=== PATIENT | female | born 1960 | race Caucasian/White ===

== ENCOUNTER → 2017-03-19 | Outpatient (CLI) | payer OTHER ==
[~2017-03-19] MED LIST: AMT/8 PO; FRCT/ PO; GABA-113 PO; GLC/500 PO; HYDR-5688 PO; LISI10TA PO; LORA-741 PO; PROTONIX PO; SIMV20TA2 PO; TRAMADOL PO; VANQUISH PO; VRP40 PO
--- NOTE | 2017-03-20 12:10 | MAMMOGRAPHY REPORT ---
BILATERAL DIGITAL SCREENING MAMMOGRAM TOMOSYNTHESIS WITH CAD: 03/19/2017 CLINICAL HISTORY: Routine screening. Patient has no complaints. TECHNIQUE: Breast tomosynthesis in addition to standard 2D mammography was performed. Current study was also evaluated with a Computer Aided Detection (CAD) system. COMPARISON: Comparison is made to exams dated: 07/20/2014 mammogram, 07/08/2013 mammogram, 12/29/2011 mammogram, 12/11/2010 mammogram - [facility], 12/01/2006, and 07/11/2004 mammogram - [facility]. BREAST COMPOSITION: The tissue of both breasts is almost entirely fatty. FINDINGS: No suspicious masses, calcifications, or areas of architectural distortion are noted in ei ther breast. There has been no significant interval change compared to prior exams. IMPRESSION: ACR BI-RADS CATEGORY 1: NEGATIVE There is no mammographic evidence of malignancy. A 1 year screening mammogram is recommended. The pa tient will receive written notification of the results. Approximately 10% of breast cancers are not detected with mammography. A negative mammographic report should not delay biopsy if a clinically suggestive mass is present. Ashley Brown M.D. /:03/19/2017 15:48:29 [employer] Supervisor: Coral ANDERSON(Kiera)([employer])(BD), [facility] letter sent: Normal 1/2 BI-RADS Code: ACR BI-RADS Category 1: Negative
== END | disposition home or self-care (01) ==
LOC: C.MAMM 12:27
PROVIDERS: ATTEND Obstetrics & Gynecology
DX: Z12.31 Encounter for screening mammogram for malignant neoplasm of breast (principal)

== ENCOUNTER → 2017-11-26 | Outpatient (CLI) | payer OTHER ==
[2017-11-26 12:28] LABS: BASO % 0.6 %; BASO ABS # 0.04 K/uL (0-0.2); EOS % 1.8 %; EOS ABS # 0.11 K/uL (0-0.5); HEMATOCRIT 40.4 % (37-47); HEMOGLOBIN 13.7 g/dL (12.0-16.0); IG# 0.01 K/uL (0.00-0.02); LYMPH % 46.8 %; LYMPH ABS # 2.94 K/uL (1.2-3.4); MEAN CELL VOLUME 86.1 fL (80-100); MEAN CORPUSCULAR HEMOGLOBIN 29.2 pg (25-34); MEAN CORPUSCULAR HGB CONC 33.9 g/dl (32-36); MEAN PLATELET VOLUME 10.2 fL (7.4-10.4); MONO % 7.8 %; MONO ABS # 0.49 K/uL (0.11-0.59); NEUT % 42.8 %; NEUT ABS # 2.69 K/uL (1.4-6.5); PLATELET COUNT 231 K/uL (130-400); RED CELL DISTRIBUTION WIDTH CV 13.1 % (11.5-14.5); RED CELL DISTRIBUTION WIDTH SD 41.5 fL (36.4-46.3); WHITE BLOOD COUNT 6.28 K/uL (4.8-10.8)
[2017-11-26 13:19] LABS: ALT/SGPT 40 U/L (12-78); AST/SGOT 25 U/L (15-37); BLOOD UREA NITROGEN 12 mg/dl (7-18); CALCIUM 9.5 mg/dl (8.5-10.1); CARBON DIOXIDE 27 mmol/L (21-32); CHOLESTEROL 222 mg/dl (0-200); GLUCOSE 88 mg/dl (70-99); POTASSIUM 4.2 mmol/L (3.5-5.1); SODIUM 138 mmol/L (136-145)
[2017-11-26 13:29] LABS: LDL CHOLESTEROL CALCULATED 132 mg/dl
[2017-11-26 13:36] LABS: HEMOGLOBIN A1C 5.9 % (4.5-5.6)
== END | disposition home or self-care (01) ==
LOC: C.LAB1850 09:40
PROVIDERS: ATTEND Family Medicine
DX: E11.9 Type 2 diabetes mellitus without complications (principal); I10 Essential (primary) hypertension; R79.89 Other specified abnormal findings of blood chemistry; M79.7 Fibromyalgia; E78.2 Mixed hyperlipidemia

== ENCOUNTER → 2017-11-27 | Outpatient (CLI) | payer OTHER | END | disposition home or self-care (01) | LOC: C.PAPS 11:10 | PROVIDERS: ATTEND Obstetrics & Gynecology | DX: Z12.4 Encounter for screening for malignant neoplasm of cervix (principal) ==

== ENCOUNTER 2022-01-22 14:23 | Observation (INO) ==
[2022-01-22] MEDS ORDERED: MoRPHine SULFATE 10 MG/ML CARP/VIAL IV STA ×2 (15:13→17:34)
--- NOTE | 2022-01-22 15:26 | Emergency Department Note ---
Impression & Plan Compression fracture of L4 vertebra, Central stenosis of spinal canal, Lower back pain ED Provider Note CHIEF COMPLAINT: Lower back pain HISTORY OF PRESENT ILLNESS: Fatemeh Bloom is a 61 year old female with history of degenerative disc disease with sciatica, DM2 with neuropathy, fibromyalgia, HTN, DLD, OA, osteopenia, among others listed below who presents to the Emergency Department for evaluation of a sudden onset of severe pain to her lower back radiating into her bilateral hips and buttocks which she developed suddenly when she was attempting to pull her sister up onto the porch step in her wheelchair just prior to arrival. When the patient developed the pain, she states that it hurt so bad that she saw "circles and lights" in her vision, became nauseous and clammy. This lasted for about 10 minutes before it resolved on its own. With help from family, the patient was able to lower herself to the ground and sat on the porch to rest for several minutes until she was able to get up and walked back into the house with assistance. From there, EMS was called and brought the patient to the ED for further evaluation. Currently, she rates her discomfort as a 10/10 which worsens with attempts of movement. She has not attempted to take any medication for her pain. She denies having any numbness/tingling above baseline neuropathy, no saddle paresthesias or loss of continence of her bowels or bladder. The patient states that her legs feel weak but attributes this to pain, especially with hip flexion, R > L. She denies specific pain radiating down her legs. She also denies pain radiating into her mid-upper back or neck, no pain or neuro deficits in her upper extremities. The patient states that she does have history of left sciatica for which she normally follows with Dr. Charis esteves, however she states that her symptoms are much worse/different than what she has experienced with that in the past. She does normally take hydrocodone daily for these chronic pains, has not yet taken any today. Also takes gabapentin which she states normally helps. She otherwise denies recent fevers/chills, chest pain, shortness of breath, abdominal pain, vomiting, diarrhea or urinary symptoms. No other acute complaints. The patient denies the use of anticoagulants/antiplatelets. REVIEW OF SYSTEMS: 10 systems were reviewed and were negative unless otherwise stated in HPI as above PHYSICAL EXAM: VITALS: Vitals are noted on the nurse's note and reviewed by myself. Vital signs stable. General: Resting in right lateral decubitus position in bed, appears uncomfortable but no acute distress HEENT: Normocephalic, atraumatic, PERRL, EOMI, oropharynx clear Neck: No mid-line or paraspinal cervical tenderness, ROM intact without pain Resp: Good inspiratory effort on room air, lung sounds clear bilaterally CV: Regular rate and rhythm, normal S1-S2, peripheral pulses palpated Back: Tender to palpation along the midline lumbar spine and bilateral paraspinal musculature, no obvious step-offs or deformities Abd: Soft, non-tender MSK/Neuro: No obvious long bone deformities. Tender to palpation along the bilateral hips and buttocks. No tenderness to palpation of the upper or lower extremities. Continues with 5/5 strength throughout BUE and LLE, 4/5 strength with attempts of right hip and knee flexion. Sensation and peripheral pulses intact throughout Neuro: Awake, alert and oriented x 3, interacting and answering questions appropriately Differential diagnosis includes Musculoskeletal, disc herniation, fracture, metastatic disease, cord compression, discitis, sciatica, cauda equina, infection, aortic disease, renal colic, gastrointestinal, as well as other pathologies were considered. EMERGENCY DEPARTMENT COURSE: Physical exam and history were performed. Nursing triage notes, EMR, and medication list were personally reviewed. Patient appears to have developed a sudden onset of severe pain to her lower back radiating into her bilateral hips and buttocks when she was attempting to pull her sister up onto the porch step in her wheelchair just prior to arrival. Additional history as described above. See physical exam as noted above. The patient was offered pain medication. IV access was established and she was given morphine 6 mg x 2 throughout her emergency department course. CAT scan of the lumbar spine was obtained and reviewed by radiologist myself as below. Imaging did show an acute mild superior endplate compression fracture at L4 demonstrating 3 mm of retropulsion and mild central canal narrowing. Upon reevaluation, the patient was feeling improved after receiving the medications, although still painful with movement. I discussed the results of the above findings with her at bedside. I did also contact Dr. Berg of orthopedic spine. He suggested keeping the patient in the hospital for pain control and further management as necessary, planned to see her tomorrow. I did [facility] the [facility], he agreed to evaluate the patient. The patient verbalized understanding and agreement with the treatment plan as above. The chart was completed utilizing [employer] Speech Voice Recognition Software. Grammatical errors, random word insertions, pronoun errors, and incomplete sent ences are an occasional consequence of this system due to software limitations, ambient noise, and hardware issues. Any formal questions or concerns about the content, text, or information contained within the body of this dictation should be directly addressed to the provider for clarification. Past Med/Surg History Medical History Coccydynia Degenerative disc disease Diverticulosis Fatty liver Fibromyalgia Gastroparesis GERD without esophagitis History of depression History of endometrial cancer LASHON-BSO Hyperlipemia Hypertension IBS (irritable bowel syndrome) Medical marijuana use Migraine headache Osteoarthritis Osteopenia Restless leg syndrome Sleep apnea CPAP Spinal stenosis TMJ (dislocation of temporomandibular joint) Surgical History H/O oral surgery History of anesthesia reaction woke up during foot surgery History of colonoscopy History of esophagogastroduodenoscopy (EGD) History of lymph node excision (~01/22/21) right groin @ [facility] History of toe surgery x 2 History of tonsillectomy History of total abdominal hysterectomy and bilateral salpingo-oophorectomy History of uvulopalatopharyngoplasty Status post epidural steroid injection Family History Father Dyslipidemia Hx of CABG Hypertension Uncle Colorectal cancer Aunt Osteoporosis Mother Ovarian cancer Uterine cancer Other No family history of adverse response to anesthesia Social History Smoking Status: Former smoker Age Quit Using Tobacco: 47; Second Hand Exposure: No; Hx Alcohol Use: Yes Hx Substance Use: Yes (medical marijuana) Preferred Language: Vincentian Communication Ability: Effective Order Processing Clerk Required: No Beliefs That Will Affect Care: None marital status: Current Living Situation: Alone current occupational status: employed Feels Safe at Home: Yes Assistive Devices: CPAP and Glasses Allergies Allergies Allergy/AdvReac Type Severity Reaction Status Date / Time doxycycline Allergy Intermediate Hives Verified 08/01/21 15:31 niacin Allergy Intermediate EXTREMELY Verified 08/01/21 15:31 BRIGHT RED AND BURNY SKIN gluten Allergy Mild Gastrointestinal Verified 08/01/21 15:31 Upset Home Meds Home Medications Medication Instructions Recorded Confirmed finnpukscj-aygmhnpekpjyv-pepywyur 1 - 2 tab PO DAILY PRN #30 tab 06/13/19 01/22/22 50 mg-325 mg-40 mg tablet lisinopril 10 mg tablet 10 mg PO HS tab 06/13/19 01/22/22 pantoprazole 40 mg tablet,delayed 40 mg PO QAM tab 06/13/19 01/22/22 release verapamil 240 mg tablet,extended 240 mg PO QAM #30 tab 06/13/19 01/22/22 release pravastatin 40 mg tablet 40 mg PO HS 09/19/20 01/22/22 gabapentin 600 mg tablet 1,200 mg PO HS tab 10/02/20 01/22/22 gabapentin 600 mg tablet 600 mg PO QAM tab 10/02/20 01/22/22 hydrocodone 5 mg-acetaminophen 325 1 tab PO DAILY PRN 01/11/21 01/22/22 mg tablet multivitamin 1 tab PO DAILY 04/23/21 01/22/22 metformin 850 mg tablet 850 mg PO DAILY tab 08/01/21 01/22/22 Results & Data (ED) Vital Signs Vital Signs - 24 hr 01/22/22 14:27 01/22/22 15:00 01/22/22 17:00 Temperature 36.8 C Temperature Source Oral Pulse Rate 67 Pulse Rate [Apical] 79 87 Respiratory Rate 18 19 19 Respiratory Effort / Characteristics Non-Labored Spontaneous Non-Labored Spontaneous Non-Labored Spontaneous Respiratory Depth Normal Normal Normal Respiratory Pattern Blood Pressure 114/71 Blood Pressure [Right Arm] 120/81 114/64 Blood Pressure Mean 85 Blood Pressure Mean [Right Arm] 94 80 Blood Pressure Position [Right Arm] Lying Pulse Oximetry 100 99 96 Oxygen Delivery Method Nasal Cannula Room Air Room Air Sepsis Recent Fever Within 48 Hours No Sepsis New/Unexplained Change in Mental Status No Sepsis Action Taken by Nursing No Action Required 01/22/22 18:58 Temperature Temperature Source Pulse Rate Pulse Rate [Apical] 76 Respiratory Rate 18 Respiratory Effort / Characteristics Non-Labored Spontaneous Respiratory Depth Normal Respiratory Pattern Regular Blood Pressure Blood Pressure [Right Arm] 102/87 Blood Pressure Mean Blood Pressure Mean [Right Arm] 92 Blood Pressure Position [Right Arm] Lying Pulse Oximetry 96 Oxygen Delivery Method Room Air Sepsis Recent Fever Within 48 Hours Sepsis New/Unexplained Change in Mental Status Sepsis Action Taken by Nursing Laboratory Data Result diagrams: 01/22/22 22:36 01/22/22 22:36 Lab Results 01/22/22 Range/Units 18:18 SARS-CoV-2, RNA, NAAT NEGATIVE (NEGATIVE) Administered Medications Gabapentin (Gabapentin 600 Mg Tab) 1,200 mg PO HS GER Stop: 02/21/22 22:15 Last Admin: 01/22/22 22:47 Dose: Not Given Documented by: [id number] Lisinopril (Lisinopril 10 Mg Tab) 10 mg PO HS GER Stop: 02/21/22 22:15 Last Admin: 01/22/22 22:46 Dose: 10 mg Documented by: [id number] Naproxen (Naproxen 250 Mg Tab) 250 mg PO BID GER Stop: 02/21/22 22:15 Last Admin: 01/22/22 22:46 Dose: 250 mg Documented by: [id number] Pravastatin Sodium (Pravastatin Sod 40 Mg Tab) 40 mg PO HS GER Stop: 02/21/22 22:15 Last Admin: 01/22/22 22:46 Dose: 40 mg Documented by: [id number] Discontinued Medications Morphine Sulfate (Morphine Sulfate 10 Mg/Ml Carp/Vial) 6 mg IV NOW STA Stop: 01/22/22 15:14 Last Admin: 01/22/22 15:43 Dose: 6 mg Documented by: [id number] Morphine Sulfate (Morphine Sulfate 10 Mg/Ml Carp/Vial) 6 mg IV NOW STA Stop: 01/22/22 17:35 Last Admin: 01/22/22 18:13 Dose: 6 mg Documented by: [id number] Imaging Data Radiologist's Impression: Lumbar Spine CT 01/22/22 15:[address] DOSE: 578.40 mGy.cm HISTORY: midline and paraspinal lumbar pain into hips/butt TECHNIQUE: Multiaxial CT images of the lumbar spine were performed and ref ormatted in the sagittal and coronal plane without the use of contrast. A dose lowering technique was utilized adhering to the principles of ALARA. COMPARISON: None. FINDINGS: There is an acute mild superior endplate compression fracture at L4 de monstrating approximately 20% loss of height. There is 3 mm of retropulsion the posterior superior corner resulting in mild central canal narrowing at this level. No subluxation. No additional fractures identified within the lumbar spine. The visualized sacrum is intact. Mild paravertebral edema at the L4 level. IMPRESSION: An acute mild superior endplate compression fracture at L4 demonstrating 3 mm of retropulsion and mild central canal narrowing at this level. ACT 112: Negative or not required by law. Electronically signed by: Daryl Caballero M.D. 01/22/2022 4:28 PM Discharge Plan Visit Data Chief Complaint: Back Injury/Pain Stated Complaint: BACK & HIP PAIN ED Provider: Marianne Green ED Midlevel Provider: Cesia Oliver Discharge Problem: Compression fracture of L4 vertebra, Central stenosis of spinal canal, Lower back pain Patient Disposition: Admitted As Inpatient Discharge Instructions Interventions: ED Discharge Assessment Last Done: 01/22/22 21:43
--- NOTE | 2022-01-22 16:30 | CT Scan Report ---
LUMBAR SPINE CT CT DOSE: 578.40 mGy.cm HISTORY: midline and paraspinal lumbar pain into hips/butt TECHNIQUE: Multiaxial CT images of the lumbar spine were performed and reformatted in the sagittal an d coronal plane without the use of contrast. A dose lowering technique was utilized adhering to the principles of ALARA. COMPARISON: None. FINDINGS: There is an acute mild superior endplate compression fracture at L4 demonstrating approxima tely 20% loss of height. There is 3 mm of retropulsion the posterior superior corner resulting in mil d central canal narrowing at this level. No subluxation. No additional fractures identified within th e lumbar spine. The visualized sacrum is intact. Mild paravertebral edema at the L4 level. IMPRESSION: An acute mild superior endplate compression fracture at L4 demonstrating 3 mm of retropulsion and mil d central canal narrowing at this level. ACT 112: Negative or not required by law. Electronically signed by: Daryl Caballero M.D. 01/22/2022 4:28 PM
--- NOTE | 2022-01-22 19:17 | History & Physical Report ---
Date of Service January 22, 2022 Assessment & Plan (1) Compression fracture of L4 vertebra: (2) Diabetes: (3) Hypertension: (4) Hyperlipemia: (5) GERD without esophagitis: (6) Fibromyalgia: (7) Migraine headache: Plan: Fatemeh is a 61 year old female w/ PmHx degenerative disc disease w/ sciatica, Fibromyalgia, osteoarthritis, osteopenia, T2DM, HTN, and dyslipidemia admitted for evaluation of acute L4 compression fracture and subsequent pain. Compression fracture of L4 Vertebra: -Inciting event identified in history. No red flag signs at current time. -CT Lumbar Spine: acute mild superior endplate compression fracture at L4 - 3mm of retropulsion. -Continue home gabapentin, Naproxen 250mg BID, Gordon PRN 1st line for pain, Morphine 2nd line for pain PRN. -Calcitonin intranasal daily. -Would benefit from DEXA scan outpatient w/ discussion of starting bis phosphonates. -PT/OT eval ordered, would try to get patient to participate without brace first if possible. -If patient still limited by pain then may benefit from TLSO brace. -Spine surgery consulted for evaluation in AM. -BMP, CBC, Vitamin D level ordered. -Continue to monitor. T2DM: -A1c 08/20 5.3 -Holding metformin while in hospital. Osteopetrosis: -Same as above w/ recommendation for outpatient DEXA scan. HTN: -Continue home lisinopril and verapamil ER HLD: -Continue home pravastatin GERD w/o esophagitis: -Continue home pantoprazole. Fibromyalgia: -Continue home Gabapentin 1200mg HS, 600mg qAM Migraine headaches: -Holding home Fioricet unless patient has active migraine. DVT Prophylaxis: SCDs F/E/N/GI: Regular diet Code Status: Conditional, everything done but no custodial intubation/coma. Dispo: Med/Surg. History of Present Illness Chief Complaint: Lower back pain. Primary Care Provider: Elena Berry DO Fatemeh Bloom is a 61 year old female w/ PmHx degenerative disc disease w/ sciatica, Fibromyalgia, osteoarthritis, osteopenia, T2DM, HTN, and dyslipidemia who came into the ED for acute onset of severe lower back pain earlier this afternoon. Patient stated she was with her sister who was recently diagnosed with multiple myeloma and in the process of transporting her into her house when they encountered a step for her wheelchair bound sister to go up. Patient tried to lift the wheelchair up onto the step from the bottom and bent over to do so when in the process heard and felt a loud pop at the lower back. She felt an intense pain going from her lower back to her hip that made her lightheaded and "seeing circles". She fell back but did not hit her head and tried to prevent her sister from falling back. She had to get helped up and walked around a bit before EMS arrived and took her to the ED. Patient said her pain currently is okay at rest but more pronounced during movement. It is a sharp pain that radiates down from the bilateral lower back to the hips but does not radiate down her legs. She denies any numbness, tingling more than her usual and denied any bowel/urinary incontinence. She has a little bit of weakness in her legs which she attributes to the pain she is experiencing. She denies any headaches, changes in vision or hearing at this time, shortness of breath, chest pain, nausea, vomiting. Has history of IBS so has bouts of diarrhea at times. She denies any recent use of steroid medication and said she last had a steroid injection in to her hip and/or shoulder 2 years ago. She has a history of osteopenia which she states she takes multivitamin containing calcium for. Allergies Allergy/AdvReac Type Severity Reaction Status Date / Time doxycycline Allergy Intermediate Hives Verified 08/01/21 15:31 niacin Allergy Intermediate EXTREMELY Verified 08/01/21 15:31 BRIGHT RED AND BURNY SKIN gluten Allergy Mild Gastrointestinal Verified 08/01/21 15:31 Upset Home Medications Medication Instructions Recorded Confirmed Type lhoqmicfhn-irhpebmfjujgm-humtzscc 1 - 2 tab PO DAILY PRN #30 tab 06/13/1901/22 History 50 mg-325 mg-40 mg tablet lisinopril 10 mg tablet 10 mg PO HS tab 06/13/19 01/22/22 History pantoprazole 40 mg tablet,delayed 40 mg PO QAM tab 06/13/19 01/22/22 History release verapamil 240 mg tablet,extended 240 mg PO QAM #30 tab 06/13/19 01/22/22 History release pravastatin 40 mg tablet 40 mg PO HS 09/19/20 01/22/22 History gabapentin 600 mg tablet 1,200 mg PO HS tab 10/02/20 01/22/22 History gabapentin 600 mg tablet 600 mg PO QAM tab 10/02/20 01/22/22 History hydrocodone 5 mg-acetaminophen 325 1 tab PO DAILY PRN 01/11/21 01/22/22 History mg tablet multivitamin 1 tab PO DAILY 04/23/21 01/22/22 History metformin 850 mg tablet 850 mg PO DAILY tab 08/01/21 01/22/22 History Past Med/Surg History Medical History Coccydynia Degenerative disc disease Diverticulosis Fatty liver Fibromyalgia Gastroparesis GERD without esophagitis History of depression History of endometrial cancer LASHON-BSO Hyperlipemia Hypertension IBS (irritable bowel syndrome) Medical marijuana use Migraine headache Osteoarthritis Osteopenia Restless leg syndrome Sleep apnea CPAP Spinal stenosis TMJ (dislocation of temporomandibular joint) Surgical History H/O oral surgery History of anesthesia reaction woke up during foot surgery History of colonoscopy History of esophagogastroduodenoscopy (EGD) History of lymph node excision (~01/22/21) right groin @ [facility] [place] History of toe surgery x 2 History of tonsillectomy History of total abdominal hysterectomy and bilateral salpingo-oophorectomy History of uvulopalatopharyngoplasty Status post epidural steroid injection Family History Father Dyslipidemia Hx of CABG Hypertension Uncle Colorectal cancer Aunt Osteoporosis Mother Ovarian cancer Uterine cancer Other No family history of adverse response to anesthesia Social History Smoking Status: Never smoker Age Quit Using Tobacco: 47; Second Hand Exposure: No; Hx Alcohol Use: No Hx Substance Use: No Preferred Language: Tuvaluan Communication Ability: Effective Hard 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 Batch Mixer Required: No Beliefs That Will Affect Care: None marital status: Current Living Situation: Alone current occupational status: employed Other Information That Helps Us Care for You: No Feels Safe at Home: Yes Safety Concerns: Feels Safe At This Time Assistive Devices: None Review of Systems Constitutional: as per Subjective / HPI Physical Exam Constitutional: WD/WN, vitals as above Eyes: PERRL, conjunctivae normal, anicteric sclerae Respiratory: normal respiratory effort, lungs clear to auscultation Cardiovascular: RRR, no murmur, no edema Gastrointestinal (Abdomen): normal bowel sounds, soft, nontender, no hepatosplenomegaly Musculoskeletal: Mild tenderness to palpation right lower back around L4, no tenderness on left. 4-/5 strength bilateral lower extremities limited by pain. Pain elicited with abduction of the RLE, flexion and extension of the hip bilaterally. Neurologic: patellar DTR's 2+ bilat, sensation intact Psychiatric: A+Ox3, euthymic affect Results & Data Results & Data ([facility]) Vital Signs (Past 12 Hours) Vital Signs Temp Pulse Pulse Resp BP BP Pulse Ox 01/22/22 17:00 87 19 114/64 96 01/22/22 15:00 79 19 120/81 99 01/22/22 14:27 36.8 C 67 18 114/71 100 Code Status & VTE Plan VTE Prophylaxis Plan VTE Prophylaxis will be ordered: Yes Supervising Physician Co-Signing Physician Notes I personally saw and examined the patient. I verified all jackosn points and agree with resident physician Dr Jacyk Burgess with the following exceptions and/or additions: 61 year old female admission for L4 compression fracture with some retropulsion. Patellar and Achilles reflexes 2+ equal b/l. Bilateral hip flex 5/5, knee ext/flex 5/5, ankle dorsiflexion 5/5, 1st toe dorsiflex 5/5. Sensation intact in lower extremities. No perianal numbness per patient. Prior history of spinal stenosis although she describes symptoms more consistent with bilateral R > L L3 radiculopathy and SI joint pain. Pain control. If unable to mobilize may need TLSO brace. Will need follow up DEXA scan as outpatient. Vitamin D level. PT/OT. Resident Activity Tracking Resident Involvement: Resident Care Provided Care Provided: Adult Hospital Medicine
[2022-01-22] MEDS ORDERED: MoRPHine SULFATE IR 15 MG TAB (IMMEDIATE RELEASE) PO PRN (22:16)
[2022-01-22] MEDS: PRAVASTATIN SOD 40 MG TAB PO SCH (22:46)
[2022-01-22] MEDS: NAPROXEN 250 MG TAB PO SCH (22:46)
[2022-01-22] MEDS: lisinopril 10 MG TAB PO SCH (22:46)
[2022-01-22] MEDS: GABAPENTIN 600 MG TAB PO SCH (22:47)
[2022-01-22] MEDS ORDERED: DEXTROSE 50% 50 ML SYRINGE IV PRN (22:51)
[2022-01-22] MEDS ORDERED: CARBOHYDRATES FOR HYPOGLYCEMIA PO PRN (22:51)
[2022-01-22] MEDS ORDERED: GLUCOSE 10 TABS/TUBE PO PRN (22:51)
[2022-01-22] MEDS ORDERED: GLUCAGON FOR INJ 1 MG VIAL SQ PRN (22:51)
[2022-01-22] MEDS ORDERED: GLUCOSE 40% GEL 15 GM TUBE PO PRN (22:51)
[2022-01-22 23:12] LABS: Basophils # (auto) 0.03 K/uL (0-0.2); Basophils % (auto) 0.5 %; Eosinophils # (auto) 0.02 K/uL (0-0.5); Eosinophils % (auto) 0.3 %; Hematocrit (blood only) 35.6 % (37-47); Hemoglobin 12.3 g/dL (12.0-16.0); Immature Granulocytes # (auto) 0.01 K/uL (0.00-0.02); Immature Granulocytes % (auto) 0.2 %; Lymphocytes # (auto) 1.57 K/uL (1.2-3.4); Mean Corpuscular Hemoglobin 30.3 pg (25-34); Mean Corpuscular Hgb Conc 34.6 g/dL (32-36); Mean Corpuscular Volume 87.7 fL (80-100); Mean Platelet Volume 10.2 fL (7.4-10.4); Monocytes # (auto) 0.43 K/uL (0.11-0.59); Monocytes % (auto) 7.1 %; Neutrophils # (auto) 3.99 K/uL (1.4-6.5); Neutrophils % (auto) 65.9 %; Platelet Count 168 K/uL (130-400); RDW Coefficient of Variation 12.8 % (11.5-14.5); RDW Standard Deviation 41.5 fL (36.4-46.3); Red Blood Count 4.06 M/uL (4.2-5.4); White Blood Count 6.05 K/uL (4.8-10.8)
[2022-01-22 23:17] LABS: BUN Creatinine Ratio 14.5 (10-20); Calcium 9.2 mg/dl (8.5-10.1); Creatinine Clr Calc Pharmacy 80.8 ml/min; Est GFR (African American) 114.4 ml/min; Est GFR (Non-African American) 98.7 ml/min; Potassium 3.7 mmol/L (3.5-5.1)
[2022-01-23] MEDS: HYDROCODONE/ACETAMOPHEN 5/325MG TAB PO PRN ×2 (06:45→22:56)
[2022-01-23] MEDS: CALCITONIN SALMON NA 200 IU/AC 3.7 ML BTL SCH (08:14)
[2022-01-23] MEDS: GABAPENTIN 600 MG TAB PO SCH ×2 (08:14→20:37)
[2022-01-23] MEDS: INSULIN ASPART PER UNIT SC SCH ×4 (08:15→21:06)
[2022-01-23] MEDS: VERAPAMIL HCL 240 MG TABCR PO SCH (08:15)
[2022-01-23] MEDS: NAPROXEN 250 MG TAB PO SCH ×2 (08:15→20:38)
[2022-01-23] MEDS: PANTOprazole 40 MG TAB PO SCH (08:15)
--- NOTE | 2022-01-23 08:20 | Billing Data ---
Date of Service January 22, 2022 Coding Level of Care Code 70624 Subseq Obs Care Lvl 2
--- NOTE | 2022-01-23 08:42 | Hospitalist Progress Note ---
Date of Service January 23, 2022 Assessment & Plan (1) Compression fracture of L4 vertebra: Plan: 61 yo female with PMHx of degenerative disc disease w/ sciatica, fibromyalgia, osteoarthritis, osteopenia, T2DM, HTN, and dyslipidemia admitted for acute L4 compression fracture with severe pain. #Compression fracture of L4 Vertebra -Inciting event identified in history. No red flag signs at current time. -CT Lumbar Spine (01/22): endplate compression fracture at L4 w/ 3mm of retropulsion causing mild central canal narrowing -Vit D level 17 -Continue home gabapentin, Naproxen 250mg BID, [place] q4h PRN, oxycodone 5mg TID -Calcitonin intranasal daily -Ortho consult appreciated -wear TLSO brace on ambulation -lift no more than 5 pounds -return to work in 4-6 weeks -cont. PT/OT, TLSO fitted -pain control with oxycodone tid prn -Would benefit from DEXA scan outpatient w/ discussion of starting bisphosphonates. #Diabetes Mellitus Type 2 -(08/20/21) A1C 5.3 -Hold metformin, on SSI #Osteopenia -As above w/ recommendation for outpatient DEXA scan. #Vitamin D deficiency -Vit D level 17 -would recommend supplementing 1000iu daily in outpatient setting #HTN -Continue home lisinopril and verapamil #HLD -Continue home pravastatin #GERD w/o esophagitis -Continue home pantoprazole #Fibromyalgia -Continue home Gabapentin 1200mg HS, 600mg qAM #Migraine headache -Holding home Fioricet unless patient has active migraine. DVT Prophylaxis: SCDs FEN/GI: Regular Code Status: full Dispo: Med/Surg (2) Diabetes: (3) Hypertension: (4) Hyperlipemia: (5) GERD without esophagitis: (6) Fibromyalgia: (7) Migraine headache: Admission and Anticipated Discharge Date Admission Date: January 22, 2022 Supervising Physician Co-Signing Physician Notes Resident Physician Supervision Note: I independently interviewed and examined the patient and verified the jackson his tory and physical, reviewed labs and image studies and agree with resident Dr. Mckenzie findings and care plan. Subjective Seen at bedside this morning. Laying flat in bed. Says she feels pain in her low mid back which radiates to her hips R>L. No pain, numbness, tingling down her legs. No urinary/BM incontinence. More pain with movement. Review of Systems Review of Systems: All systems reviewed & are unremarkable except as noted in Subjective Physical Exam Physical Exam: Constitutional: laying flat, pleasant Vitals as above. HEENT: No scleral injection or discharge.Moist mucous membranes.Clear oropharynx. Neck: Supple without lymphadenopathy. Trachea midline. Lungs: Clear to anterior auscultation bilaterally Cardiac: Regular rate and rhythm. 2+ LE pulses. Abdomen: Bowel sounds present. Soft, nontender, and nondistended.No guarding. MSK: not performed due to pain and confirmed diagnosis. Skin: No rashes, warm, dry. Neurologic:Grossly intact cranial nerves and 2+ patellar tendon reflexes bilaterally. Results & Data Results & Data ([facility]) Vital Signs (Past 12 Hours) Vital Signs Temp Pulse Pulse Resp BP Pulse Ox 01/23/22 07:39 36.8 C 54 L 18 108/71 97 01/22/22 22:00 37.5 C 81 18 161/109 H 93 01/22/22 21:38 63 18 124/82 99 Laboratory Results 01/23/22 01/23/22 01/22/22 Range/Units 08:05 07:19 22:36 WBC (4.8-10.8) K/uL RBC (4.2-5.4) M/uL Hgb (12.0-16.0) g/dL Hct (37-47) % MCV (80-100) fL MCH (25-34) pg MCHC (32-36) g/dL RDW Std Deviation (36.4-46.3) fL RDW Coeff of Jayleen (11.5-14.5) % Plt Count (130-400) K/uL MPV (7.4-10.4) fL Immature Gran % (Auto) % Neut % (Auto) % Lymph % (Auto) % [place] % (Auto) % Eos % (Auto) % Baso % (Auto) % Neut # (Auto) (1.4-6.5) K/uL Lymph # (Auto) (1.2-3.4) K/uL [place] # (Auto) (0.11-0.59) K/uL Eos # (Auto) (0-0.5) K/uL Baso # (Auto) (0-0.2) K/uL Immature Gran # (Auto) (0.00-0.02) K/uL Sodium (136-145) mmol/L Potassium (3.5-5.1) mmol/L Chloride (98-107) mmol/L Carbon Dioxide (21-32) mmol/L Anion Gap (3-11) BUN (6-23) mg/dl Creatinine (0.6-1.2) mg/dl Est Cr Clr Drug Dosing ml/min Est GFR ( Amer) ml/min Est GFR (Non-Af Amer) ml/min BUN/Creatinine Ratio (10-20) Glucose (70-99(Fasting)) mg/dl POC Glucose 89 (70-99) mg/dl Estimat Average Glucose Pending Hemoglobin A1c Pending Calcium (8.5-10.1) mg/dl 25-OH Vitamin D Total 17.7 L (30-100) ng/ml SARS-CoV-2, RNA, NAAT (NEGATIVE) 01/22/22 01/22/22 01/22/22 Range/Units 22:36 22:36 22:06 WBC 6.05 (4.8-10.8) K/uL RBC 4.06 L (4.2-5.4) M/uL Hgb 12.3 (12.0-16.0) g/dL Hct 35.6 L (37-47) % MCV 87.7 (80-100) fL MCH 30.3 (25-34) pg MCHC 34.6 (32-36) g/dL RDW Std Deviation 41.5 (36.4-46.3) fL RDW Coeff of Jayleen 12.8 (11.5-14.5) % Plt Count 168 (130-400) K/uL MPV 10.2 (7.4-10.4) fL Immature Gran % (Auto) 0.2 % Neut % (Auto) 65.9 % Lymph % (Auto) 26.0 % [place] % (Auto) 7.1 % Eos % (Auto) 0.3 % Baso % (Auto) 0.5 % Neut # (Auto) 3.99 (1.4-6.5) K/uL Lymph # (Auto) 1.57 (1.2-3.4) K/uL [place] # (Auto) 0.43 (0.11-0.59) K/uL Eos # (Auto) 0.02 (0-0.5) K/uL Baso # (Auto) 0.03 (0-0.2) K/uL Immature Gran # (Auto) 0.01 (0.00-0.02) K/uL Sodium 137 (136-145) mmol/L Potassium 3.7 (3.5-5.1) mmol/L Chloride 102 (98-107) mmol/L Carbon Dioxide 29 (21-32) mmol/L Anion Gap 6 (3-11) BUN 9 (6-23) mg/dl Creatinine 0.62 (0.6-1.2) mg/dl Est Cr Clr Drug Dosing 80.8 ml/min Est GFR ( Amer) 114.4 ml/min Est GFR (Non-Af Amer) 98.7 ml/min BUN/Creatinine Ratio 14.5 (10-20) Glucose 99 (70-99(Fasting)) mg/dl POC Glucose 107 H (70-99) mg/dl Estimat Average Glucose Hemoglobin A1c Calcium 9.2 (8.5-10.1) mg/dl 25-OH Vitamin D Total (30-100) ng/ml SARS-CoV-2, RNA, NAAT (NEGATIVE) 01/22/22 Range/Units 18:18 WBC (4.8-10.8) K/uL RBC (4.2-5.4) M/uL Hgb (12.0-16.0) g/dL Hct (37-47) % MCV (80-100) fL MCH (25-34) pg MCHC (32-36) g/dL RDW Std Deviation (36.4-46.3) fL RDW Coeff of Jayleen (11.5-14.5) % Plt Count (130-400) K/uL MPV (7.4-10.4) fL Immature Gran % (Auto) % Neut % (Auto) % Lymph % (Auto) % [place] % (Auto) % Eos % (Auto) % Baso % (Auto) % Neut # (Auto) (1.4-6.5) K/uL Lymph # (Auto) (1.2-3.4) K/uL [place] # (Auto) (0.11-0.59) K/uL Eos # (Auto) (0-0.5) K/uL Baso # (Auto) (0-0.2) K/uL Immature Gran # (Auto) (0.00-0.02) K/uL Sodium (136-145) mmol/L Potassium (3.5-5.1) mmol/L Chloride (98-107) mmol/L Carbon Dioxide (21-32) mmol/L Anion Gap (3-11) BUN (6-23) mg/dl Creatinine (0.6-1.2) mg/dl Est Cr Clr Drug Dosing ml/min Est GFR ( Amer) ml/min Est GFR (Non-Af Amer) ml/min BUN/Creatinine Ratio (10-20) Glucose (70-99(Fasting)) mg/dl POC Glucose (70-99) mg/dl Estimat Average Glucose Hemoglobin A1c Calcium (8.5-10.1) mg/dl 25-OH Vitamin D Total (30-100) ng/ml SARS-CoV-2, RNA, NAAT NEGATIVE (NEGATIVE) Resident Activity Tracking Resident Involvement: Resident Care Provided Care Provided: Adult Hospital Medicine
--- NOTE | 2022-01-23 09:05 | Orthopedic Consultation ---
Date of Consultation January 23, 2022 Assessment & Plan (1) Compression fracture of L4 vertebra: Assessment L4 compression fracture. Plan I had a discussion with this patient regarding her diagnosis and treatment plan. I will ask her to lift no more than 5 pounds. I will have her fitted with an LSO brace to wear when she is up and ambulating today. She most likely would not be able to return to work for 4 to 6 weeks allowing the lumbar fractures time to heal. She understands and agrees. History of Present Illness Reason for Consultation: L4 compression fracture Attending Physician: Leyla Riggs MD History of Present Illness This is a very pleasant 61-year-old female who presents yesterday with acute back pain. She was assisting her sister trying to lift her wheelchair and had a sudden pain in her back. Imaging demonstrates evidence of superior endplate compression fracture of L4. This morning she states she does have pain across lumbosacral junction into the right buttock. There is no clear radicular component. She is able to sit up. She is able to stand and ambulate. Allergies Allergy/AdvReac Type Severity Reaction Status Date / Time doxycycline Allergy Intermediate Hives Verified 08/01/21 15:31 niacin Allergy Intermediate EXTREMELY Verified 08/01/21 15:31 BRIGHT RED AND BURNY SKIN gluten Allergy Mild Gastrointestinal Verified 08/01/21 15:31 Upset Home Medications Medication Instructions Recorded Confirmed Type eiprnzwukk-sfqfkegufpulz-sqpwydvr 1 - 2 tab PO DAILY PRN #30 tab 06/13/19 01/22/22 History 50 mg-325 mg-40 mg tablet lisinopril 10 mg tablet 10 mg PO HS tab 06/13/19 01/22/22 History pantoprazole 40 mg tablet,delayed 40 mg PO QAM tab 06/13/19 01/22/22 History release verapamil 240 mg tablet,extended 240 mg PO QAM #30 tab 06/13/19 01/22/22 History release pravastatin 40 mg tablet 40 mg PO HS 09/19/20 01/22/22 History gabapentin 600 mg tablet 1,200 mg PO HS tab 10/02/20 01/22/22 History gabapentin 600 mg tablet 600 mg PO QAM tab 10/02/20 01/22/22 History hydrocodone 5 mg-acetaminophen 325 1 tab PO DAILY PRN 01/11/21 01/22/22 History mg tablet multivitamin 1 tab PO DAILY 04/23/21 01/22/22 History metformin 850 mg tablet 850 mg PO DAILY tab 08/01/21 01/22/22 History Patient History Medical History Coccydynia Degenerative disc disease Diverticulosis Fatty liver Fibromyalgia Gastroparesis GERD without esophagitis History of depression History of endometrial cancer LASHON-BSO Hyperlipemia Hypertension IBS (irritable bowel syndrome) Medical marijuana use Migraine headache Osteoarthritis Osteopenia Restless leg syndrome Sleep apnea CPAP Spinal stenosis TMJ (dislocation of temporomandibular joint) Surgical History H/O oral surgery History of anesthesia reaction woke up during foot surgery History of colonoscopy History of esophagogastroduodenoscopy (EGD) History of [place] node excision [place]~01/22/21[place] [facility] [place] [facility] [place] of toe surgery x 2 History of tonsillectomy History of total abdominal hysterectomy and bilateral salpingo-oophorectomy History of uvulopalatopharyngoplasty Status post epidural steroid injection Family History Father Dyslipidemia Hx of CABG Hypertension Uncle Colorectal cancer Aunt Osteoporosis Mother Ovarian cancer Uterine cancer Other No family history of adverse response to anesthesia Social History Smoking Status: Never smoker Age Quit Using Tobacco: 47; Second Hand Exposure: No; Hx Alcohol Use: No Hx Substance Use: No Preferred Language: Cymraes Communication Ability: Effective Tongue Presser Required: No Beliefs That Will Affect Care: None marital status: Current Living Situation: Alone current occupational status: employed Other Information That Helps Us Care for You: No Feels Safe at Home: Yes Safety Concerns: Feels Safe At This Time Assistive Devices: None Physical Exam Physical Exam: On exam she sitting up the side of the bed. She does not have any significant tenderness palpation lumbar musculature. She is neurologically intact. Results & Data ([facility]) Vital Signs (Past 12 Hours) Vital Signs Temp Pulse Pulse Resp BP Pulse Ox 01/23/22 07:39 36.8 C 54 L 18 108/71 97 01/22/22 22:00 37.5 C 81 18 161/109 H 93 01/22/22 21:38 63 18 124/82 99
[2022-01-23 09:52] LABS: Estimated Average Glucose 105 mg/dl; Hemoglobin A1C 5.3 % (4.5-5.6)
[2022-01-23] MEDS ORDERED: oxyCODONE HCL IR 5 MG TAB (IMMEDIATE RELEASE) PO STA (09:52)
[2022-01-23] MEDS: oxyCODONE HCL IR 5 MG TAB (IMMEDIATE RELEASE) PO PRN (18:19)
[2022-01-23] MEDS: lisinopril 10 MG TAB PO SCH (20:38)
[2022-01-23] MEDS: PRAVASTATIN SOD 40 MG TAB PO SCH (20:39)
[2022-01-24] MEDS: oxyCODONE HCL IR 5 MG TAB (IMMEDIATE RELEASE) PO PRN ×2 (06:02→12:41)
[2022-01-24] MEDS: PANTOprazole 40 MG TAB PO SCH (07:49)
[2022-01-24] MEDS: GABAPENTIN 600 MG TAB PO SCH (07:49)
[2022-01-24] MEDS: VERAPAMIL HCL 240 MG TABCR PO SCH (07:49)
[2022-01-24] MEDS: CALCITONIN SALMON NA 200 IU/AC 3.7 ML BTL SCH (07:49)
[2022-01-24] MEDS: NAPROXEN 250 MG TAB PO SCH (07:49)
[2022-01-24] MEDS: INSULIN ASPART PER UNIT SC SCH ×2 (08:25→12:13)
[2022-01-24] MEDS: HYDROCODONE/ACETAMOPHEN 5/325MG TAB PO PRN (09:35)
--- NOTE | 2022-01-24 12:56 | Discharge Summary ---
Date of Service January 24, 2022 Admission HPI Per Admitting Provider Fatemeh Bloom is a 61 year old female w/ PmHx degenerative disc disease w/ sciatica, Fibromyalgia, osteoarthritis, osteopenia, T2DM, HTN, and dyslipidemia who came into the ED for acute onset of severe lower back pain earlier this afternoon. Patient stated she was with her sister who was recently diagnosed with multiple myeloma and in the process of transporting her into her house when they encountered a step for her wheelchair bound sister to go up. Patient tried to lift the wheelchair up onto the step from the bottom and bent over to do so when in the process heard and felt a loud pop at the lower back. She felt an intense pain going from her lower back to her hip that made her lightheaded and "seeing circles". She fell back but did not hit her head and tried to prevent her sister from falling back. She had to get helped up and walked around a bit before EMS arrived and took her to the ED. Patient said her pain currently is okay at rest but more pronounced during movement. It is a sharp pain that radiates down from the bilateral lower back to the hips but does not radiate down her legs. She denies any numbness, tingling more than her usual and denied any bowel/urinary incontinence. She has a little bit of weakness in her legs which she attributes to the pain she is experiencing. She denies any headaches, changes in vision or hearing at this time, shortness of breath, chest pain, nausea, vomiting. Has history of IBS so has bouts of diarrhea at times. She denies any recent use of steroid medication and said she last had a steroid injection in to her hip and/or shoulder 2 years ago. She has a history of osteopenia which she states she takes multivitamin containing calcium for. Principal Diagnosis L4 compression fracture Discharge Exam Constitutional: pleasant. Vitals as above. HEENT: Moist mucous membranes. Neck: Trachea midline. Lungs: Clear to anterior auscultation bilaterally Cardiac: Regular rate and rhythm. 2+ LE pulses. Abdomen: Soft, nontender, and nondistended. MSK: ambulating with TLSO brace fitted well, moving all extremities Neurologic:Grossly intact cranial nerves, 2+ patellar reflexes bilaterally. Discharge Data Allergies Allergy/AdvReac Type Severity Reaction Status Date / Time doxycycline Allergy Intermediate Hives Verified 08/01/21 15:31 niacin Allergy Intermediate EXTREMELY Verified 08/01/21 15:31 BRIGHT RED AND BURNY SKIN gluten Allergy Mild Gastrointestinal Verified 08/01/21 15:31 Upset Consultations 01/22/22 17:50 ED Decision to Admit Stat 01/22/22 22:16 Consult Orthopedic Surgery Routine Ordered Studies Laboratory Results WBC 6.05 K/uL (4.8-10.8) 01/22/22 22:36 RBC 4.06 M/uL (4.2-5.4) L 01/22/22 22:36 Hgb 12.3 g/dL (12.0-16.0) 01/22/22 22:36 Hct 35.6 % (37-47) L 01/22/22 22:36 MCV 87.7 fL (80-100) 01/22/22 22:36 MCH 30.3 pg (25-34) 01/22/22 22:36 MCHC 34.6 g/dL (32-36) 01/22/22 22:36 RDW Std Deviation 41.5 fL (36.4-46.3) 01/22/22 22:36 RDW Coeff of Jayleen 12.8 % (11.5-14.5) 01/22/22 22:36 Plt Count 168 K/uL (130-400) 01/22/22 22:36 MPV 10.2 fL (7.4-10.4) 01/22/22 22:36 Immature Gran % (Auto) 0.2 % 01/22/22 22:36 Neut % (Auto) 65.9 % 01/22/22 22:36 Lymph % (Auto) 26.0 % 01/22/22 22:36 [place] % (Auto) 7.1 % 01/22/22 22:36 Eos % (Auto) 0.3 % 01/22/22 22:36 Baso % (Auto) 0.5 % 01/22/22 22:36 Neut # (Auto) 3.99 K/uL (1.4-6.5) 01/22/22 22:36 Lymph # (Auto) 1.57 K/uL (1.2-3.4) 01/22/22 22:36 [place] # (Auto) 0.43 K/uL (0.11-0.59) 01/22/22 22:36 Eos # (Auto) 0.02 K/uL (0-0.5) 01/22/22 22:36 Baso # (Auto) 0.03 K/uL (0-0.2) 01/22/22 22:36 Immature Gran # (Auto) 0.01 K/uL (0.00-0.02) 01/22/22 22:36 Sodium 137 mmol/L (136-145) 01/22/22 22:36 Potassium 3.7 mmol/L (3.5-5.1) 01/22/22 22:36 Chloride 102 mmol/L (98-107) 01/22/22 22:36 Carbon Dioxide 29 mmol/L (21-32) 01/22/22 22:36 Anion Gap 6 (3-11) 01/22/22 22:36 BUN 9 mg/dl (6-23) 01/22/22 22:36 Creatinine 0.62 mg/dl (0.6-1.2) 01/22/22 22:36 Est Cr Clr Drug Dosing 80.8 ml/min 01/22/22 22:36 Est GFR ( Amer) 114.4 ml/min 01/22/22 22:36 Est GFR (Non-Af Amer) 98.7 ml/min 01/22/22 22:36 BUN/Creatinine Ratio 14.5 (10-20) 01/22/22 22:36 Glucose 99 mg/dl (70-99(Fasting)) 01/22/22 22:36 POC Glucose 97 mg/dl (70-99) 01/24/22 12:09 Estimat Average Glucose 105 mg/dl 01/23/22 07:19 Hemoglobin A1c 5.3 % (4.5-5.6) 01/23/22 07:19 Calcium 9.2 mg/dl (8.5-10.1) 01/22/22 22:36 25-OH Vitamin D Total 17.7 ng/ml (30-100) L 01/22/22 22:36 SARS-CoV-2, RNA, NAAT NEGATIVE (NEGATIVE) 01/22/22 18:[address] 01/22/22 15:[address] DOSE: 578.40 mGy.cm HISTORY: midline and paraspinal lumbar pain into hips/butt TECHNIQUE: Multiaxial CT images of the lumbar spine were performed and reformatted in the sagittal and coronal plane without the use of contrast. A dose lowering technique was utilized adhering to the principles of ALARA. COMPARISON: None. FINDINGS: There is an acute mild superior endplate compression fracture at L4 demonstrating approximately 20% loss of height. There is 3 mm of retropulsion the posterior superior corner resulting in mild central canal narrowing at this level. No subluxation. No additional fractures identified within the lumbar spine. The visualized sacrum is intact. Mild paravertebral edema at the L4 level. IMPRESSION: An acute mild superior endplate compression fracture at L4 demonstrating 3 mm of retropulsion and mild central canal narrowing at this level. ACT 112: Negative or not required by law. Electronically signed by: Daryl Caballero M.D. 01/22/2022 4:28 PM Hospital Course (1) Compression fracture of L4 vertebra: 61 yo female with PMHx of degenerative disc disease w/ sciatica, fibromyalgia, osteoarthritis, osteopenia, T2DM, HTN, and dyslipidemia admitted for acute L4 compression fracture with severe pain. #Compression fracture of L4 Vertebra -Inciting event - bending forward to move the wheelchair. -CT Lumbar Spine (01/22): endplate compression fracture at L4 w/ 3mm of retropulsion causing mild central canal narrowing -Vit D level 17 -Pain control: -cont. home gabapentin, hydrocodone -may use ibuprofen prn, break through pain control with oxycodone prn -may continue calcitonin intranasal daily -Ortho consult appreciated -wear TLSO brace on ambulation; fitted well -lift no more than 5 pounds -return to work in 4-6 weeks -PT/OT: ok for home -Should get DEXA scan outpatient and treatment with bisphosphonates #Diabetes Mellitus Type 2 -(08/20/21) A1C 5.3 -Cont. home metformin #Osteopenia -As above w/ recommendation for outpatient DEXA scan. #Vitamin D deficiency -Vit D level 17 -would recommend supplementing 1000iu daily in outpatient setting #HTN -Continue home lisinopril and verapamil #HLD -Continue home pravastatin #GERD w/o esophagitis -Continue home pantoprazole #Fibromyalgia -Continue home Gabapentin 1200mg HS, 600mg qAM #Migraine headache -Cont. home Fioricet prn (2) Diabetes: (3) Hypertension: (4) Hyperlipemia: (5) GERD without esophagitis: (6) Fibromyalgia: (7) Migraine headache: Total Time Total Time Spent Total Time Spent (In Minutes): 30 Discharge Plan Discharge Items Patient Disposition: Home - Self-Care Reason For Visit: ACUTE COMPRESSION FRACTURE L4 Discharge Diagnosis: Compression Fracture L4 Activity: Per Instructions section Lifting: No more than 5 pounds Non-emergency contact: Primary Care Provider and Specialist Call non-emergency contact if: you have any medication questions, your symptoms worsen and your pain is concerning for you Follow-up/Referrals: Elena Berry DO [Primary Care Provider] - Diet: Carb Consistent or DM2 Addtl Attending Provider Instructions: You were admitted to the hospital for a back injury that resulted in a L4 compression fracture found on CT imaging. He was seen by our sports marketing specialist and you were provided with a TLSO brace which you should use on ambulation. You should lift no more than 5 pounds and may return to work in 4 to 6 weeks. We have provided you with some oxycodone which should only be used as needed for breakthrough pain. You may also use the calcitonin spray that was given to you in the hospital, this can help with bone health and pain. You should follow-up with your primary care provider in the next 1 to 2 weeks. It will be important to assess your bone health going forward and to optimize your treatment plan. We recommend a DEXA scan for further evaluation. You may also want to supplement vitamin D 1000 international units daily but again this can be discussed with your PCP. Pending Studies at Discharge: No Stand-Alone Forms: [facility] [email or web address], Opioid Pain Management, Work/School Release, Smoking Cessation Medications and DC Order Prescriptions: New calcitonin (salmon) 200 unit/actuation [place],Non-Aerosol 1 spray NA DAILY Qty: 1 RF: 0 oxycodone 5 mg capsule 5 mg PO TID PRN (Reason: pain) Qty: 20 RF: 0 Continued gabapentin 600 mg tablet 1,200 mg PO HS RF: 0 opkoisntvr-jpovluohovdhr-ayrr 50-325-40 mg tablet 1 - 2 tab PO DAILY PRN (Reason: Migraine Headache) Qty: 30 RF: 0 lisinopril 10 mg tablet 10 mg PO HS RF: 0 pantoprazole 40 mg tablet,delayed release (DR/EC) 40 mg PO QAM RF: 0 verapamil 240 mg tablet extended release 240 mg PO QAM Qty: 30 RF: 0 gabapentin 600 mg tablet 600 mg PO QAM RF: 0 metformin 850 mg tablet 850 mg PO DAILY RF: 0 pravastatin 40 mg tablet 40 mg PO HS RF: 0 hydrocodone-acetaminophen 5-325 mg tablet 1 tab PO DAILY PRN (Reason: Pain) RF: 0 multivitamin Tablet 1 tab PO DAILY RF: 0 Discharge Orders: Discharge Order (Routine); Ordered 01/24/22 Ordered By: Guillermo Mckenzie Admission Data Admit Date/Time: 01/22/22 19:58 Attending Provider: Leyla Riggs Admit Provider: Jacky Burgess Primary Care Provider: Elena Berry Other Providers: Epifanio Berg ; Laci Agudelo. Other Interventions: Discharge Summary Assessment (RN) Last Done: 01/24/22 13:49 Supervising Physician Co-Signing Physician Notes Resident Physician Supervision Note: I independently interviewed and examined the patient and verified the jackson history and physical, reviewed labs and image studies and agree with resident Dr. Mckenzie findings and care plan. Resident Activity Tracking Resident Involvement: Resident Care Provided Care Provided: Adult Hospital Medicine
== END 2022-01-24 15:09 | disposition home or self-care (01) ==
LOC: ED 14:23 → 3N 19:58 → SUATTDRO 19:58 → INTOOBSV 19:58 → 3N 21:43

== ENCOUNTER 2024-03-14 14:45 | Inpatient (IN) ==
--- NOTE | 2024-03-14 15:16 | ED Triage Note ---
Date of Service March 14, 2024 Provider in Triage Author: Connie Brown History of Present Illness This patient was briefly evaluated while in triage. An abbreviated physical exam was performed. This patient is a 63-year-old Female who presents to the ED for evaluation of fever and flank pain with UTI symptoms. Pt. having UTI symptoms x1 week. On Thursday, was having right flank pain. Flank pain improved, but still present. Pt. having fever (99.6F this morning, 101.6 after a nap). PT. also experiencing nausea. Pt. states PCP thought urinary symptoms due to constipation so was not started on ABX. Physical Exam VITALS: Vitals are noted on the nurse's note and reviewed by myself. GENERAL: This is a 63 year old female, in no acute distress, nondiaphoretic, well-developed well-nourished. SKIN: No obvious rashes, edema, erythema HEAD: Normocephalic atraumatic. EYES: Conjunctivae without injection, sclerae without icterus. NECK: No JVD. LUNGS: No retractions or accessory muscle use. MUSCULOSKELETAL: Normal gait. NEURO: Patient was alert and oriented to person place and time. No focal neurological deficits. Initial orders for labs and / or imaging were placed and patient was placed in the waiting area until a bed is available. Please see further documentation for the full ED course.
[2024-03-14] MEDS: SODIUM CHLORIDE 0.9% 1,000 ML IV STA (17:14)
[2024-03-14 17:34] LABS: Appearance Urine Clear (Clear); Bacteria Urine Automated 2+ (None Seen); Bilirubin Urine Negative (Negative); Blood Urine Trace (Negative); Cast Urine Automated 0-2 /lpf (0-2); Color Urine Yellow; Epithelial Cell Urine Auto 0-2 /hpf (0-2); Glucose Urine UA Negative (Negative); Ketones Urine Trace (Negative); Leukocyte Esterase Urine 3+ (Negative); Nitrite Urine Negative (Negative); Protein Urine Trace (Negative); RBC Urine Automated 0-2 /hpf (0-2); Specific Gravity Urine 1.008 (1.000-1.030); Urobilinogen Urine Negative (Negative); WBC Urine Automated >50 /hpf (0-5); pH Urine 7.5 (4.5-7.5)
[2024-03-14 17:51] LABS: ALC (manual) 0.28 K/uL (1.2-3.4); ANC (manual) 2.16 K/uL (1.4-6.5); Albumin Globulin Ratio 1.7 (0.9-2); BUN Creatinine Ratio 13.6 (10-20); Bilirubin,Total 0.8 mg/dl (0.2-1.0); Creatinine Clr Calc Pharmacy 79.2 ml/min; Dohle Bodies 2+; Est GFR (African American) 114.7 ml/min; Est GFR (Non-African American) 98.9 ml/min; Globulin 2.4 gm/dl (2.5-4.0); Hematocrit (blood only) 35.8 % (37.0-47.0); Hemoglobin 11.9 g/dl (12.0-16.0); Lymphocytes # (manual) 0.28 K/uL (1.2-3.4); Lymphocytes % (manual) 10 %; Mean Corpuscular Hemoglobin 30.9 pg (25.0-34.0); Mean Corpuscular Hgb Conc 33.2 g/dL (32.0-36.0); Monocytes # (manual) 0.36 K/uL (0.11-0.59); Monocytes % (manual) 13 %; Neutrophils # (manual) 2.16 K/uL (1.40-6.50); Neutrophils % (manual) 77 %; Platelet Count 92 K/uL (130-400); Platelet Estimate Decreased (Normal); Potassium 3.9 mmol/L (3.5-5.1); RDW Coefficient of Variation 12.9 % (11.5-14.5); Red Blood Count 3.85 M/uL (4.20-5.40); Total Protein 6.4 gm/dl (6.0-8.3)
[2024-03-14] MEDS: ONDANSETRON INJ 2 MG/ML 2 ML VIAL IV STA (17:51)
--- NOTE | 2024-03-14 17:53 | Emergency Department Note ---
Impression & Plan Pyelonephritis, Nausea ED Provider Note Provider: Cristian Lr MD DATE OF SERVICE: 03/14/2024 CHIEF COMPLAINT: Possible UTI, flank pain HISTORY OF PRESENT ILLNESS: Patient is a 63-year-old female past medical history of migraines, hypertension, GERD, IBS, and diabetes presenting here today reporting week of urinary symptoms. Discussed with primary care but was not started on antibiotics. Developed some right flank pain 2 days ago and now fevers over 101F with nausea. Reports urinary frequency and pressure. No syncope. Chills today. No difficulty breathing or chest pain. Right flank pain with some tenderness of the lower abdomen diffusely. History of hysterectomy. History of R-CHOP completed treatment in October. Decreased intake today secondary to nausea. Started vomiting here in the waiting room. PAST MEDICAL HISTORY: As noted above MEDICATIONS: Reviewed home medication list SOCIAL HISTORY: Non-smoker PHYSICAL EXAM: GENERAL: alert and oriented shaking and chilly upon exam Head: normocephalic and atraumatic EYES: No injection, discharge or icterus. EOMI. NECK: Trachea midline ENT: Mucous membranes pink and moist. LUNGS: Airway patent. No retractions or tachypnea HEART: Regular tachycardic rate and rhythm. Left upper chest port accessed. ABDOMEN: Soft mild diffuse tenderness particular in the lower abdomen and right flank but slightly in the left lower quadrant. No masses appreciable. SKIN: Acyanotic, warm, dry, without rashes EXTREMITIES: Without swelling, tenderness or deformity NEUROLOGICAL: No focal deficits. No aphasia. No facial droop or slurred speech. Normal strength and tone in the extremities. Sensation to gross touch normal. Ambulatory. CONTINUOUS CARDIAC MONITORING: was ordered and showed a heart rate of 90s-100s bpm in normal sinus rhythm to sinus tachycardia Patient's laboratory studies and imaging reviewed. Differential includes Appendicitis, ovarian cyst, ovarian torsion, ectopic , TOA, PID, infections, diverticulitis, UTI, obstruction, mesenteric ischemia, aortic pathology, inflammatory bowel disease, renal colic, PUD, pancreatitis, biliary pathology, hernia, volvulus, constipation, as well as other pathologies. IMPRESSION/MEDICAL DECISION MAKING: Patient multiple medical morbidities. Borderline fever upon arrival improving here receiving IV fluids and Zofran. Blood work here leukopenia but not neutropenia. Thrombocytopenia anemia. Chronic and stable. No signs of electrolyte abnormality or renal dysfunction. No evidence of hepatitis or pancreatitis. Lactate and procalcitonin not severely elevated. Blood and urine culture sent. Reviewed urine culture from last week with E. coli several distances. Will give cefepime given her history of lymphoma for UTI with concerns given her rigors on exam that she is suffering from possible bacteremia and pyelonephritis not just a UTI. CT abdomen pelvis completed to exclude other intra-abdominal pathologies diverticulitis, perforation, appendicitis, kidney stone among others. CT abdomen pelvis with cystitis bilateral pyelitis and right pyelonephritis without abscess noted. No evidence of acute bowel obstruction or diverticulitis per the radiologist. Patient with small independence and improvement of her abdominal pain. Not having rigors upon reassessment. Received IV cefepime. In discussion given her significant symptoms of rigor upon arrival with her past medical history of lymphoma and treatment she felt more comfortable staying for observation and continued IV antibiotics which I do not feel is unreasonable. Nausea is improved on reassessment. DIAGNOSIS: Pyelonephritis, UTI, abdominal pain DISPOSITION: Hospitalist will evaluate Patient was agreeable with this plan. Past Med/Surg History Problem List (Updated 03/14/24 @ 21:08 by Reggie Chatman PA-C) Sepsis Nausea (Acute) Pyelonephritis (Acute) Diabetes (Acute) NIDDM EBV (-) lymphoma of intra-abdominal site Preop testing TGA (transient global amnesia) Arthritis Lymphadenopathy Nipple problem Lower back pain (Acute) Central stenosis of spinal canal (Acute) Compression fracture of L4 vertebra (Acute) Weight loss Early satiety Encounter for pre-operative examination Amnesia Lymphadenopathy Moderate obstructive sleep apnea Chronic neck pain (Acute) Irritable bowel syndrome (Acute) Morbid obesity (Acute) Vitamin D deficiency (Acute) Nocturnal hypoxemia Hx of cancer of uterus MAGO positive has not had repeated since 12/2022 Coccydynia Spinal stenosis Fibromyalgia (Acute) GERD without esophagitis (Acute) Gastroparesis (Acute) Hyperlipemia (Acute) Hypertension (Acute) Migraine headache (Acute) hx Restless leg syndrome (Acute) Medical History (Updated 03/14/24 @ 21:08 by Reggie Chatman PA-C) B-cell lymphoma Low grade fever pt stated she has been having a low grade temperature/fever since december 2022, on a daily basis since the discovery of the large lymph node in her neck. Enlarged lymph node in neck has had MRI screening History of fractured vertebra L4, 01/22/2022, no sx required Depression Back problem Endometrial cancer dx 1999, sx tx only History of bronchitis none since 2019 or 2020 History of anemia iron infusion and B12 injection set for 07/29/23 at [facility] Medical marijuana use 3-4x per week Degenerative disc disease Osteoarthritis Osteopenia Fatty liver Diverticulosis hx IBS (irritable bowel syndrome) History of endometrial cancer LASHON-BSO TMJ (dislocation of temporomandibular joint) clicking, no locking Sleep apnea not currently using CPAP>has lost over 100 pounds in last 3 years, has not had a repeated sleep study Surgical History (Updated 07/30/23 @ 08:43 by Melanie Queen, RN) Port-A-Cath in place (07/30/23) Insertion Access Port Left Subclavian Vein(Left) - Gerson Oconnell MD, FACS Hx of biopsy (06/11/23) Laparoscopic Biopsy of the Right excisional Iliac Node (Right) - Gerson Oconnell MD, FACS History of lymph node excision (01/22/21) Robotic-assisted laparoscopic right pelvic lymph node dissection, possible right sided groin lymph node dissection Dr. Tyrese Roper, @ [facility] [place] Status post epidural steroid injection History of anesthesia reaction woke up during foot surgery History of toe surgery x 2 History of uvulopalatopharyngoplasty History of tonsillectomy History of esophagogastroduodenoscopy (EGD) History of colonoscopy History of total abdominal hysterectomy and bilateral salpingo-oophorectomy H/O oral surgery Family History Father Dyslipidemia Hx of CABG Hypertension Myocardial infarction Heart disease Stroke Uncle Colorectal cancer Diabetes Heart disease Hypertension Aunt Osteoporosis Breast cancer Mother Ovarian cancer Uterine cancer Cancer Brother Diabetes Heart disease Hypertension Other No family history of adverse response to anesthesia Social History Smoking Status: Former smoker Tobacco Type: Cigarettes Age Quit Using Tobacco: 47; Second Hand Exposure: No; Do You Dip or Chew Tobacco: No; Hx Alcohol Use: No Hx Substance Use: Yes Last Used Substance: Days (ago) Last Used Substance Other:: capsules and tinctures, 3-4x week Substance Use Type Other:: medical marijuana Preferred Language: Uzbek Communication Ability: Effective Visual Impairment: Limited Order Processing Clerk Required: No Beliefs That Will Affect Care: None marital status: Current Living Situation: Alone current occupational status: employed 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 [employer] How many Children do You have: 1 Other Information That Helps Us Care for You: No Feels Safe at Home: Yes Safety Concerns: Feels Safe At This Time Diet: diabetic during the past year weight has: remained stable Assistive Devices: Glasses Allergies Allergies Allergy/AdvReac Type Severity Reaction Status Date / Time doxycycline Allergy Intermediate Hives Verified 07/30/23 05:47 niacin Allergy Intermediate EXTREMELY Verified 07/30/23 05:47 BRIGHT RED AND BURNY SKIN gluten AdvReac Mild Gastrointestinal Verified 07/30/23 05:47 Upset Home Meds Home Medications Medication Instructions Recorded Confirmed gybsnntwcb-okqpngqzkjuye-pbucczam 1 - 2 tab PO DAILY PRN Migraine 06/13/19 03/14/24 50 mg-325 mg-40 mg tablet Headache #30 tabs lisinopril 10 mg tablet 10 mg PO HS 06/13/19 03/14/24 pantoprazole 40 mg tablet,delayed 40 mg PO QAM 06/13/19 03/14/24 release verapamil 240 mg tablet,extended 240 mg PO QAM #30 tabs 06/13/19 03/14/24 release pravastatin 40 mg tablet 40 mg PO HS 09/19/20 03/14/24 gabapentin 600 mg tablet 1,200 mg PO HS 10/02/20 03/14/24 gabapentin 600 mg tablet 600 mg PO QAM 10/02/20 03/14/24 hydrocodone 5 mg-acetaminophen 325 1 tab PO DAILY PRN Pain 01/11/21 03/14/24 mg tablet multivitamin 1 tab PO QAM 04/23/21 03/14/24 metformin 850 mg tablet 850 mg PO QPM 08/01/21 03/14/24 paroxetine HCl 10 mg tablet 10 mg PO QAM 11/18/22 03/14/24 Medical Marijuana 1 dose PO UD PRN Pain 06/03/23 03/14/24 lidocaine-prilocaine 2.5 %-2.5 % 1 applic topical UD PRN Other 03/14/24 03/14/24 topical cream ondansetron HCl 4 mg tablet 4 mg PO BID PRN n/v 03/14/24 03/14/24 Results & Data (ED) Vital Signs Vital Signs - 24 hr 03/14/24 15:13 03/14/24 17:57 03/14/24 17:57 Temperature 37.8 C H Temperature Source Oral Pulse Rate 97 H Pulse Rate [Apical] Pulse Rate from SpO2 Sensor Pulse Rhythm Regular Pulse Strength Normal Respiratory Rate 18 Respiratory Effort / Characteristics Non-Labored Respiratory Depth Normal Respiratory Pattern Regular Blood Pressure 125/73 122/88 122/88 Blood Pressure [Right Arm] Blood Pressure Mean 90 93 93 Blood Pressure Mean [Right Arm] Blood Pressure Position Sitting Pulse Oximetry 96 Oxygen Delivery Method Room Air Sepsis Recent Fever Within 48 Hours Yes Sepsis New/Unexplained Change in Mental Status No Sepsis Action Taken by Nursing No Action Required 03/14/24 17:57 03/14/24 17:57 03/14/24 17:57 Temperature Temperature Source Pulse Rate Pulse Rate [Apical] Pulse Rate from SpO2 Sensor Pulse Rhythm Pulse Strength Respiratory Rate Respiratory Effort / Characteristics Respiratory Depth Respiratory Pattern Blood Pressure 122/88 122/88 122/88 Blood Pressure [Right Arm] Blood Pressure Mean 93 93 93 Blood Pressure Mean [Right Arm] Blood Pressure Position Pulse Oximetry Oxygen Delivery Method Sepsis Recent Fever Within 48 Hours Sepsis New/Unexplained Change in Mental Status Sepsis Action Taken by Nursing 03/14/24 17:57 03/14/24 17:57 03/14/24 17:57 Temperature Temperature Source Pulse Rate Pulse Rate [Apical] Pulse Rate from SpO2 Sensor Pulse Rhythm Pulse Strength Respiratory Rate Respiratory Effort / Characteristics Respiratory Depth Respiratory Pattern Blood Pressure 122/88 122/88 122/88 Blood Pressure [Right Arm] Blood Pressure Mean 93 93 93 Blood Pressure Mean [Right Arm] Blood Pressure Position Pulse Oximetry Oxygen Delivery Method Sepsis Recent Fever Within 48 Hours Sepsis New/Unexplained Change in Mental Status Sepsis Action Taken by Nursing 03/14/24 17:57 03/14/24 17:57 03/14/24 17:57 Temperature Temperature Source Pulse Rate Pulse Rate [Apical] Pulse Rate from SpO2 Sensor Pulse Rhythm Pulse Strength Respiratory Rate Respiratory Effort / Characteristics Respiratory Depth Respiratory Pattern Blood Pressure 122/88 122/88 122/88 Blood Pressure [Right Arm] Blood Pressure Mean 93 93 93 Blood Pressure Mean [Right Arm] Blood Pressure Position Pulse Oximetry Oxygen Delivery Method Sepsis Recent Fever Within 48 Hours Sepsis New/Unexplained Change in Mental Status Sepsis Action Taken by Nursing 03/14/24 17:57 03/14/24 17:57 03/14/24 17:57 Temperature Temperature Source Pulse Rate Pulse Rate [Apical] Pulse Rate from SpO2 Sensor Pulse Rhythm Pulse Strength Respiratory Rate Respiratory Effort / Characteristics Respiratory Depth Respiratory Pattern Blood Pressure 122/88 122/88 122/88 Blood Pressure [Right Arm] Blood Pressure Mean 93 93 93 Blood Pressure Mean [Right Arm] Blood Pressure Position Pulse Oximetry Oxygen Delivery Method Sepsis Recent Fever Within 48 Hours Sepsis New/Unexplained Change in Mental Status Sepsis Action Taken by Nursing 03/14/24 17:57 03/14/24 17:57 03/14/24 17:57 Temperature Temperature Source Pulse Rate Pulse Rate [Apical] Pulse Rate from SpO2 Sensor Pulse Rhythm Pulse Strength Respiratory Rate Respiratory Effort / Characteristics Respiratory Depth Respiratory Pattern Blood Pressure 122/88 122/88 122/88 Blood Pressure [Right Arm] Blood Pressure Mean 93 93 93 Blood Pressure Mean [Right Arm] Blood Pressure Position Pulse Oximetry Oxygen Delivery Method Sepsis Recent Fever Within 48 Hours Sepsis New/Unexplained Change in Mental Status Sepsis Action Taken by Nursing 03/14/24 17:57 03/14/24 17:57 03/14/24 17:57 Temperature Temperature Source Pulse Rate Pulse Rate [Apical] Pulse Rate from SpO2 Sensor Pulse Rhythm Pulse Strength Respiratory Rate Respiratory Effort / Characteristics Respiratory Depth Respiratory Pattern Blood Pressure 122/88 122/88 122/88 Blood Pressure [Right Arm] Blood Pressure Mean 93 93 93 Blood Pressure Mean [Right Arm] Blood Pressure Position Pulse Oximetry Oxygen Delivery Method Sepsis Recent Fever Within 48 Hours Sepsis New/Unexplained Change in Mental Status Sepsis Action Taken by Nursing 03/14/24 17:57 03/14/24 17:57 03/14/24 17:57 Temperature Temperature Source Pulse Rate Pulse Rate [Apical] Pulse Rate from SpO2 Sensor Pulse Rhythm Pulse Strength Respiratory Rate Respiratory Effort / Characteristics Respiratory Depth Respiratory Pattern Blood Pressure 122/88 122/88 122/88 Blood Pressure [Right Arm] Blood Pressure Mean 93 93 93 Blood Pressure Mean [Right Arm] Blood Pressure Position Pulse Oximetry Oxygen Delivery Method Sepsis Recent Fever Within 48 Hours Sepsis New/Unexplained Change in Mental Status Sepsis Action Taken by Nursing 03/14/24 17:57 03/14/24 17:57 03/14/24 18:43 Temperature Temperature Source Pulse Rate Pulse Rate [Apical] 85 Pulse Rate from SpO2 Sensor Pulse Rhythm Pulse Strength Respiratory Rate 18 Respiratory Effort / Characteristics Non-Labored Respiratory Depth Normal Respiratory Pattern Blood Pressure 122/88 122/88 Blood Pressure [Right Arm] 122/88 Blood Pressure Mean 93 93 Blood Pressure Mean [Right Arm] 99 Blood Pressure Position Pulse Oximetry 98 Oxygen Delivery Method Room Air Sepsis Recent Fever Within 48 Hours Sepsis New/Unexplained Change in Mental Status Sepsis Action Taken by Nursing 03/14/24 18:57 03/14/24 18:58 03/14/24 19:00 Temperature Temperature Source Pulse Rate 88 89 Pulse Rate [Apical] 88 Pulse Rate from SpO2 Sensor 90 Pulse Rhythm Pulse Strength Respiratory Rate 16 16 Respiratory Effort / Characteristics Non-Labored Respiratory Depth Normal Respiratory Pattern Regular Blood Pressure Blood Pressure [Right Arm] 122/87 Blood Pressure Mean Blood Pressure Mean [Right Arm] 98 Blood Pressure Position Pulse Oximetry 95 95 Oxygen Delivery Method Room Air Sepsis Recent Fever Within 48 Hours Sepsis New/Unexplained Change in Mental Status Sepsis Action Taken by Nursing 03/14/24 19:01 03/14/24 19:36 03/14/24 19:42 Temperature 37.3 C Temperature Source Oral Pulse Rate 92 H 93 H Pulse Rate [Apical] Pulse Rate from SpO2 Sensor 90 Pulse Rhythm Pulse Strength Respiratory Rate 19 20 Respiratory Effort / Characteristics Respiratory Depth Respiratory Pattern Blood Pressure Blood Pressure [Right Arm] Blood Pressure Mean Blood Pressure Mean [Right Arm] Blood Pressure Position Pulse Oximetry 95 Oxygen Delivery Method Sepsis Recent Fever Within 48 Hours Sepsis New/Unexplained Change in Mental Status Sepsis Action Taken by Nursing 03/14/24 19:54 Temperature Temperature Source Pulse Rate 85 Pulse Rate [Apical] Pulse Rate from SpO2 Sensor 83 Pulse Rhythm Pulse Strength Respiratory Rate 22 Respiratory Effort / Characteristics Respiratory Depth Respiratory Pattern Blood Pressure Blood Pressure [Right Arm] Blood Pressure Mean Blood Pressure Mean [Right Arm] Blood Pressure Position Pulse Oximetry 95 Oxygen Delivery Method Sepsis Recent Fever Within 48 Hours Sepsis New/Unexplained Change in Mental Status Sepsis Action Taken by Nursing Laboratory Data 03/14/24 17:02 03/14/24 17:02 Lab Results 03/14/24 03/14/24 Range/Units 17:02 17:07 WBC 2.80 L (4.8-10.8) K/ul RBC 3.85 L (4.20-5.40) M/uL Hgb 11.9 L (12.0-16.0) g/dl Hct 35.8 L (37.0-47.0) % MCV 93.0 (80.0-100.0) fL MCH 30.9 (25.0-34.0) pg MCHC 33.2 (32.0-36.0) g/dL RDW Std Deviation 44.0 (36.4-46.3) fL RDW Coeff of Jayleen 12.9 (11.5-14.5) % Plt Count 92 L (130-400) K/uL MPV 10.0 (9.4-12.4) fL Neutrophils % (Manual) 77 % Lymphocytes % (Manual) 10 % Monocytes % (Manual) 13 % Neutrophils # (Manual) 2.16 (1.40-6.50) K/uL Total Absolute Neuts 2.16 (1.4-6.5) K/uL Lymphocytes # (Manual) 0.28 L (1.2-3.4) K/uL Total Abs Lymphocytes 0.28 L (1.2-3.4) K/uL Monocytes # (Manual) 0.36 (0.11-0.59) K/uL Dohle Bodies 2+ Platelet Estimate Decreased L (Normal) Sodium 138 (136-145) mmol/L Potassium 3.9 (3.5-5.1) mmol/L Chloride 102 (98-107) mmol/L Carbon Dioxide 30 (21-32) mmol/L Anion Gap 6 (3-11) BUN 8 (6-23) mg/dl Creatinine 0.59 L (0.6-1.2) mg/dl Est Cr Clr Drug Dosing 79.2 ml/min Est GFR ( Amer) 114.7 ml/min Est GFR (Non-Af Amer) 98.9 ml/min BUN/Creatinine Ratio 13.6 (10-20) Glucose 94 (70-99(Fasting)) mg/dl Lactate 0.7 (0.4-2.0) mmol/L Calcium 9.0 (8.6-10.3) mg/dl Total Bilirubin 0.8 (0.2-1.0) mg/dl AST 37 (13-39) U/L ALT 26 (7-52) U/L Alkaline Phosphatase 118 H (34-104) U/L Total Protein 6.4 (6.0-8.3) gm/dl Albumin 4.0 (3.4-5.0) gm/dl Globulin 2.4 L (2.5-4.0) gm/dl Albumin/Globulin Ratio 1.7 (0.9-2) Lipase 17 (11-82) U/L Procalcitonin 0.18 (0-0.5) ng/ml Urine Color Yellow Urine Appearance Clear (Clear) Urine pH 7.5 (4.5-7.5) Ur Specific [place] 1.008 (1.000-1.030) Urine Protein Trace H (Negative) Urine Glucose (UA) Negative (Negative) Urine Ketones Trace H (Negative) Urine Blood Trace H (Negative) Urine Nitrite Negative (Negative) Urine Bilirubin Negative (Negative) Urine Urobilinogen Negative (Negative) Ur Leukocyte Esterase 3+ H (Negative) Urine WBC (Auto) >50 H (0-5) /hpf Urine RBC (Auto) 0-2 (0-2) /hpf U Hyaline Cast (Auto) 0-2 (0-2) /lpf U Epithel Cells (Auto) 0-2 (0-2) /hpf Urine Bacteria (Auto) 2+ H (None Seen) Administered Medications Acetaminophen (Acetaminophen 325 Mg Tab) 650 mg PO Q6H PRN PRN Reason: pain(1-4),headache,fever Stop: 04/13/24 20:33 Last Admin: 03/14/24 23:10 Dose: 650 mg Documented By: GUILLERMO Gabapentin (Gabapentin 600 Mg Tab) 1,200 mg PO [facility] Stop: 04/13/24 22:18 Last Admin: 03/14/24 22:45 Dose: 1,200 mg Documented By: GUILLERMO Morphine Sulfate (Morphine Sulfate 2 Mg/Ml Carp) 2 mg IV Q4H PRN PRN Reason: Pain(5+) Stop: 03/28/24 20:31 Last Admin: 03/14/24 21:27 Dose: 2 mg Documented By: SULEMA Ondansetron HCl (Ondansetron Inj 2 Mg/Ml 2 Ml Vial) 4 mg IV Q4H PRN PRN Reason: Nausea Stop: 04/13/24 20:46 Last Admin: 03/14/24 21:27 Dose: 4 mg Documented By: SULEMA Pravastatin Sodium (Pravastatin Sod 40 Mg Tab) 40 mg PO [facility] Stop: 04/13/24 22:18 Last Admin: 03/14/24 22:44 Dose: 40 mg Documented By: GUILLERMO Discontinued Medications Fentanyl Citrate (Fentanyl Citrate Pf 100 Mcg/2 Ml Vial) 25 mcg IV NOW STA Stop: 03/14/24 18:29 Last Admin: 03/14/24 18:44 Dose: 25 mcg Documented By: ROBYN Sodium Chloride (Nss) 1,000 mls @ 999 mls/hr IV .Q1H1M STA Stop: 03/14/24 16:15 Last Infusion: 03/14/24 18:44 Dose: Infused Documented By: Admin: 03/14/24 17:14 Dose: 999 mls/hr Documented By: SHANNON Cefepime HCl (Maxipime) 2,000 mg in 20 mls @ 5 mls/min IV NOW STA; Protocol Stop: 03/14/24 18:03 Last Admin: 03/14/24 18:48 Dose: 5 mls/min Documented By: ROBYN Sodium Chloride (Nss) 500 mls @ 999 mls/hr IV .Q31M ONE Stop: 03/14/24 20:49 Last Infusion: 03/14/24 21:24 Dose: Infused Documented By: Admin: 03/14/24 20:47 Dose: 999 mls/hr Documented By: SULEMA Pantoprazole Sodium 40 mg/ (Syringe) 10 mls @ 5 mls/min IV NOW ONE Stop: 03/14/24 21:16 Last Admin: 03/14/24 21:27 Dose: 5 mls/min Documented By: SULEMA Prochlorperazine 5 mg/ Syringe 5 mls @ 5 mls/min IV ONE ONE Stop: 03/14/24 23:01 Last Admin: 03/14/24 23:22 Dose: 5 mls/min Documented By: Admin: 03/14/24 23:10 Dose: 5 mls/min Documented By: GUILLERMO Ioversol (Optiray 320 100ml) 95 ml IV ONCE ONE Stop: 03/14/24 18:23 Last Admin: 03/14/24 18:23 Dose: 95 ml Documented By: TIMMY Ondansetron HCl (Ondansetron Inj 2 Mg/Ml 2 Ml Vial) 4 mg IV NOW STA Stop: 03/14/24 17:37 Last Admin: 03/14/24 17:51 Dose: 4 mg Documented By: ROBYN Imaging Data Radiologist's Impression: Abdomen/Pelvis CT 03/14/24 15:15 CT OF THE ABDOMEN AND PELVIS WITH CONTRAST CLINICAL HISTORY: UTI symptoms, right flank pain, fever. COMPARISON STUDY: Head CT March 09, 2024. CT of the abdomen and pelvis January 11, 2021. MRI of the pelvis April 21, 2023. TECHNIQUE: Following IV administration of 95 mL of Optiray, axial images of the abdomen and pelvis were obtained from the lung bases to the proximal femurs. Images were reviewed in the axial, sagittal, and coronal planes. IV contrast was administered without complication. Automated exposure control was utilized for the study. A dose lowering technique was utilized adhering to the principles of ALARA. CT DOSE: 614.12 mGy.cm FINDINGS: Lung bases are unremarkable. No pneumatosis, free air or portal venous gas is present. Liver, spleen, adrenal glands and pancreas are unremarkable. Size of the spleen is normal. There is no evidence for a bowel obstruction. Extensive sigmoid diverticulosis is present. There is no evidence for acute diverticulitis. A mildly enlarged right external iliac lymph node image 270 of 345 is unchanged since recent PET/CT. Bladder wall thickening with mucosal hyperemia is noted. There is mild bilateral hypertrophic ureteral nephrosis. There is urothelial thickening of both ureters. Left ureter slightly extends through the left sciatic foramen. A few small hypoenhancing foci within the right kidney are present. No renal fluid collection is present. IMPRESSION: 1. Findings consistent with cystitis, bilateral pyelitis and right pyelonephritis. No renal abscess. Mild bilateral hydroureteronephrosis. 2. Extensive sigmoid diverticulosis. No evidence for acute diverticulitis. No bowel obstruction. ACT 112: Negative or not required by law. Electronically signed by: Yordan Espino M.D. 03/14/2024 7:06 PM Discharge Plan Visit Data Chief Complaint: Fever Stated Complaint: FEVER, R FLANK PAIN, ABD PAIN ED Provider: Cristian Lr Discharge Problem: Pyelonephritis, Nausea Patient Disposition: Being Evaluated by Hospitalist
[2024-03-14] MEDS: OPTIRAY 320 100ml IV ONE (18:23)
[2024-03-14] MEDS: fentaNYL citrate PF 100 MCG/2 ML VIAL IV STA (18:44)
[2024-03-14] MEDS: CEFEPIME 2,000 MG/20 ML VIAL IV STA (18:48)
--- NOTE | 2024-03-14 19:09 | CT Scan Report ---
CT OF THE ABDOMEN AND PELVIS WITH CONTRAST CLINICAL HISTORY: UTI symptoms, right flank pain, fever. COMPARISON STUDY: Head CT March 09, 2024. CT of the abdomen and pelvis January 11, 2021. MRI of the pel vis April 21, 2023. TECHNIQUE: Following IV administration of 95 mL of Optiray, axial images of the abdomen and pelvis we re obtained from the lung bases to the proximal femurs. Images were reviewed in the axial, sagittal, and coronal planes. IV contrast was administered without complication. Automated exposure control wa s utilized for the study. A dose lowering technique was utilized adhering to the principles of ALARA . CT DOSE: 614.12 mGy.cm FINDINGS: Lung bases are unremarkable. No pneumatosis, free air or portal venous gas is present. Live r, spleen, adrenal glands and pancreas are unremarkable. Size of the spleen is normal. There is no ev idence for a bowel obstruction. Extensive sigmoid diverticulosis is present. There is no evidence for acute diverticulitis. A mildly enlarged right external iliac lymph node image 270 of 345 is unchange d since recent PET/CT. Bladder wall thickening with mucosal hyperemia is noted. There is mild bilater al hypertrophic ureteral nephrosis. There is urothelial thickening of both ureters. Left ureter sligh tly extends through the left sciatic foramen. A few small hypoenhancing foci within the right kidney are present. No renal fluid collection is present. IMPRESSION: 1. Findings consistent with cystitis, bilateral pyelitis and right pyelonephritis. No renal abscess. Mild bilateral hydroureteronephrosis. 2. Extensive sigmoid diverticulosis. No evidence for acute diverticulitis. No bowel obstruction. ACT 112: Negative or not required by law. Electronically signed by: Yordan Espino M.D. 03/14/2024 7:06 PM
--- NOTE | 2024-03-14 20:19 | History & Physical Report ---
Date of Service March 14, 2024 Assessment & Plan (1) Sepsis: Plan: Admit to med telemetry Currently stable and nontoxic-appearing Presented to the ED today due to to progressive suprapubic pain, nausea, right flank pain and fevers Patient met sepsis criteria on arrival with leukopenia of 2.8, heart rate of 97, and source being her urine/pyelonephritis Lactate was within normal limits, patient received 1 L normal saline and a dose of cefepime in the ED We will give an additional 500 mL NSS bolus to complete her sepsis fluid protocol Continue with cefepime for now Will obtain chest x-ray to rule out other sources of infection as she is immunocompromised, Mediport was without signs of infection Monitor blood and urine cultures Heart healthy/DM type II diet Bilateral BREANNA stockings for DVT prophylaxis at this time with her thrombocytopenia, if stable tomorrow and without signs of bleeding, could consider starting chemical DVT prophylaxis A.m. CBC, CMP, mag, PT/INR (2) Pyelonephritis: Plan: Noted on CT of abdomen pelvis with IV contrast CT reviewed also noted bilateral pyelitis and findings consistent with cystitis but was negative for signs of renal abscess Noted to have mild bilateral hydroureteronephrosis Positive right CVA tenderness Renal function is currently stable, will continue cefepime for now Rest of care per sepsis plan (3) B-cell lymphoma: Plan: Patient completed chemotherapy in October of this year Noted to be leukopenic today along with platelet count of 92 and lymphocyte count of 0.28 No signs of bleeding Will obtain peripheral smear for further assessment (4) Nausea: Plan: Nausea is likely related to her current infection As needed Zofran ordered (5) Diabetes: Plan: Hold metformin for now Monitor BSG ACHS, goal is [id number] Will start with conservative regimen with CF of 50 and CR of 15 ACHS Adjust regimen as needed (6) Hypertension: Plan: Currently stable Will hold lisinopril for now to avoid hypotension with current sepsis Will continue verapamil for now Continue to monitor Plan The patient was discussed with Dr. Tamayo at the time of the admission History of Present Illness Chief Complaint: Fever, nausea, right flank pain Primary Care Provider: Elena Berry DO Fatemeh is a 63-year-old female with a past medical history significant for diffuse large B-cell lymphoma, endometrial cancer, hypertension, diabetes mellitus type 2 who presented to [facility] ED on 03/14/2024 with complaints of fever, nausea, and hyperlipidemia. She was noted to have a temperature of 37.2 C on arrival, heart rate of 97, but was otherwise stable. Labs were significant for a leukopenia of 2.8, platelet count of 92 (has been 100 as of November of this year), lactate within normal limits, Pro-Zoran normal limits, and he would like UA with 3+ leukocyte esterase, greater than 50 WBC, and 2+ bacteria. CT of the abdomen/pelvis with IV contrast was read as findings consistent with cystitis, bilateral pyelitis and right pyelonephritis. No renal abscess. Mild bilateral hydroureteronephrosis. Extensive sigmoid di verticulosis. No evidence for acute diverticulitis. No bowel obstruction. Prior to admission the patient was given a dose of cefepime, 1 L NSS, 25 mcg of fentanyl, and 4 mg IV zofran. Patient was sitting in bed in no acute distress at the time of exam. States that she started develop suprapubic abdominal pain, nausea approximately 1 week ago. Symptoms progressed to include right flank pain. Earlier today she had a fever of 101.6 Fahrenheit and 1 episode of nonbloody emesis. She confirms that she completed chemotherapy for her B-cell lymphoma and October of this year, she is currently being monitored. She still has her Mediport in place as she does not want removed until she can confirm she no longer needs chemotherapy. Denies recent chest pain, shortness of breath, cough, hematuria, diarrhea, melena, lower extremity swelling, and recent trauma. Compared to arrival she feels slightly improved but not back to her baseline. We discussed CODE STATUS, she is a full code and would want her son to make medical decisions for her if she cannot make them herself. Please refer to Dr. Tamayo's attestation for any changes to the treatment plan Allergies Allergy/AdvReac Type Severity Reaction Status Date / Time doxycycline Allergy Intermediate Hives Verified 07/30/23 05:47 niacin Allergy Intermediate EXTREMELY Verified 07/30/23 05:47 BRIGHT RED AND BURNY SKIN gluten AdvReac Mild Gastrointestinal Verified 07/30/23 05:47 Upset Home Medications Medication Instructions Recorded Confirmed Type [id number] 1 - 2 tab PO DAILY PRN Migraine 06/13/19 03/14/24 History 50 mg-325 mg-40 mg tablet Headache #30 tabs lisinopril 10 mg tablet 10 mg PO HS 06/13/19 03/14/24 History pantoprazole 40 mg tablet,delayed 40 mg PO QAM 06/13/19 03/14/24 History release verapamil 240 mg tablet,extended 240 mg PO QAM #30 tabs 06/13/19 03/14/24 History release pravastatin 40 mg tablet 40 mg PO HS 09/19/20 03/14/24 History gabapentin 600 mg tablet 1,200 mg PO HS 10/02/20 03/14/24 History gabapentin 600 mg tablet 600 mg PO QAM 10/02/20 03/14/24 History hydrocodone 5 mg-acetaminophen 325 1 tab PO DAILY PRN Pain 01/11/21 03/14/24 History mg tablet multivitamin 1 tab PO QAM 04/23/21 03/14/24 History metformin 850 mg tablet 850 mg PO QPM 08/01/21 03/14/24 History paroxetine HCl 10 mg tablet 10 mg PO QAM 11/18/22 03/14/24 History Medical Marijuana 1 dose PO UD PRN Pain 06/03/23 03/14/24 History lidocaine-prilocaine 2.5 %-2.5 % 1 applic topical UD PRN Other 03/14/24 03/14/24 History topical cream ondansetron HCl 4 mg tablet 4 mg PO BID PRN n/v 03/14/24 03/14/24 History Past Med/Surg History Problem List (Updated 03/15/24 @ 16:09 by Belkis Underwood MD) E coli bacteremia Sepsis Nausea (Acute) Pyelonephritis (Acute) Diabetes (Acute) NIDDM EBV (-) lymphoma of intra-abdominal site Preop testing TGA (transient global amnesia) Arthritis Lymphadenopathy Nipple problem Lower back pain (Acute) Central stenosis of spinal canal (Acute) Compression fracture of L4 vertebra (Acute) Weight loss Early satiety Encounter for pre-operative examination Amnesia Lymphadenopathy Moderate obstructive sleep apnea Chronic neck pain (Acute) Irritable bowel syndrome (Acute) Morbid obesity (Acute) Vitamin D deficiency (Acute) Nocturnal hypoxemia Hx of cancer of uterus MAGO positive has not had repeated since 12/2022 Coccydynia Spinal stenosis Fibromyalgia (Acute) GERD without esophagitis (Acute) Gastroparesis (Acute) Hyperlipemia (Acute) Hypertension (Acute) Migraine headache (Acute) hx Restless leg syndrome (Acute) Medical History (Updated 03/15/24 @ 16:09 by Belkis Underwood MD) B-cell lymphoma Low grade fever pt stated she has been having a low grade temperature/fever since december 2022, on a daily basis since the discovery of the large lymph node in her neck. Enlarged lymph node in neck has had MRI screening History of fractured vertebra L4, 01/22/2022, no sx required Depression Back problem Endometrial cancer dx 1999, sx tx only History of bronchitis none since 2019 or 2020 History of anemia iron infusion and B12 injection set for 07/29/23 at [facility] Medical marijuana use 3-4x per week Degenerative disc disease Osteoarthritis Osteopenia Fatty liver Diverticulosis hx IBS (irritable bowel syndrome) History of endometrial cancer LASHON-BSO TMJ (dislocation of temporomandibular joint) clicking, no locking Sleep apnea not currently using CPAP>has lost over 100 pounds in last 3 years, has not had a repeated sleep study Surgical History (Updated 07/30/23 @ 08:43 by Melanie Queen, NEIL) Port-A-Cath in place (07/30/23) Insertion Access Port Left Subclavian Vein(Left) - Gerson Oconnell MD, FACS Hx of biopsy (06/11/23) Laparoscopic Biopsy of the Right excisional Iliac Node (Right) - Gerson Oconnell MD, FACS History of lymph node excision (01/22/21) Robotic-assisted laparoscopic right pelvic lymph node dissection, possible right sided groin lymph node dissection Dr. Tyrese Roper, @ [facility] [place] Status post epidural steroid injection History of anesthesia reaction woke up during foot surgery History of toe surgery x 2 History of uvulopalatopharyngoplasty History of tonsillectomy History of esophagogastroduodenoscopy (EGD) History of colonoscopy History of total abdominal hysterectomy and bilateral salpingo-oophorectomy H/O oral surgery Family History Father Dyslipidemia Hx of CABG Hypertension Myocardial infarction Heart disease Stroke Uncle Colorectal cancer Diabetes Heart disease Hypertension Aunt Osteoporosis Breast cancer Mother Ovarian cancer Uterine cancer Cancer Brother Diabetes Heart disease Hypertension Other No family history of adverse response to anesthesia Social History Smoking Status: Former smoker Tobacco Type: Cigarettes Age Quit Using Tobacco: 47; Second Hand Exposure: No; Do You Dip or Chew Tobacco: No; Hx Alcohol Use: No Hx Substance Use: Yes Last Used Substance: Days (ago) Last Used Substance Other:: capsules and tinctures, 3-4x week Substance Use Type Other:: medical marijuana Preferred Language: Czech Communication Ability: Effective Visual Impairment: Limited 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 Inboard Required: No Beliefs That Will Affect Care: None marital status: Current Living Situation: Alone current occupational status: employed 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 How many Children do You have: 1 Other Information That Helps Us Care for You: No Feels Safe at Home: Yes Safety Concerns: Feels Safe At This Time Diet: diabetic during the past year weight has: remained stable Assistive Devices: Walker and Other Physical Exam Physical Exam: Physical Exam: General: In no acute distress, stated age, chronically ill appearing but non- toxic HEENT: Normocephalic, atraumatic, no scleral icterus, pupils around round, symmetrical, and reactive to light, moist mucus membranes, trachea midline, no thyromegaly Chest/Pulm: Mediport located in the left upper chest is without signs of infection, No respiratory distress, symmetrical chest expansion, clear breath sounds throughout Cardiac: RRR, no murmurs noted Abdomen: Negative for ascites and bruising, normoactive bowel sounds, soft, mildly tender in the suprapubic region but otherwise non-tender : Positive right CVA tenderness, negative left Musculoskeletal: Symmetrical and without signs of acute trauma, upper and lower extremities with full ROM, no atrophy, spasticity, or flaccidity Extremities: Radial, dorsalis pedis, and posterior tibial pulses are intact and symmetrical, no edema noted in the BL LE's Skin: Warm, dry, no rashes , lesions, or scars noted Neuro: Alert and oriented to person, place, month, year, and president, no focal defects, no tremors noted Psych: No acute distress, calm and cooperative during the exam Results & Data Results & Data Vital Signs (Past 12 Hours) Vital Signs Temp Pulse Pulse Resp BP BP Pulse Ox 03/14/24 19:01 37.3 C 03/14/24 18:58 88 16 122/87 95 03/14/24 18:57 88 03/14/24 18:43 85 18 122/88 98 03/14/24 15:13 37.8 C H 97 H 18 125/73 96 O2 Del Method 03/14/24 19:01 03/14/24 18:58 Room Air 03/14/24 18:57 03/14/24 18:43 Room Air 03/14/24 15:13 Room Air Laboratory Results Abnormal lab results 03/14/24 03/14/24 Range/Units 17:02 17:07 WBC 2.80 L (4.8-10.8) K/ul RBC 3.85 L (4.20-5.40) M/uL Hgb 11.9 L (12.0-16.0) g/dl Hct 35.8 L (37.0-47.0) % Plt Count 92 L (130-400) K/uL Lymphocytes # (Manual) 0.28 L (1.2-3.4) K/uL Total Abs Lymphocytes 0.28 L (1.2-3.4) K/uL Platelet Estimate Decreased L (Normal) Creatinine 0.59 L (0.6-1.2) mg/dl Alkaline Phosphatase 118 H (34-104) U/L Globulin 2.4 L (2.5-4.0) gm/dl Urine Protein Trace H (Negative) Urine Ketones Trace H (Negative) Urine Blood Trace H (Negative) Ur Leukocyte Esterase 3+ H (Negative) Urine WBC (Auto) >50 H (0-5) /hpf Urine Bacteria (Auto) 2+ H (None Seen) Diagnostic Findings Abdomen/Pelvis CT 03/14/24 15:15 CT OF THE ABDOMEN AND PELVIS WITH CONTRAST CLINICAL HISTORY: UTI symptoms, right flank pain, fever. COMPARISON STUDY: Head CT March 09, 2024. CT of the abdomen and pelvis January 11, 2021. MRI of the pelvis April 21, 2023. TECHNIQUE: Following IV administration of 95 mL of Optiray, axial images of the abdomen and pelvis were obtained from the lung bases to the proximal femurs. Images were reviewed in the axial, sagittal, and coronal planes. IV contrast was administered without complication. Automated exposure control was utilized for the study. A dose lowering technique was utilized adhering to the principles of ALARA. CT DOSE: 614.12 mGy.cm FINDINGS: Lung bases are unremarkable. No pneumatosis, free air or portal venous gas is present. Liver, spleen, adrenal glands and pancreas are unremarkable. Size of the spleen is normal. There is no evidence for a bowel obstruction. Extensive sigmoid diverticulosis is present. There is no evidence for acute diverticulitis. A mildly enlarged right external iliac lymph node image 270 of 345 is unchanged since recent PET/CT. Bladder wall thickening with mucosal hyperemia is noted. There is mild bilateral hypertrophic ureteral nephrosis. There is urothelial thickening of both ureters. Left ureter slightly extends through the left sciatic foramen. A few small hypoenhancing foci within the right kidney are present. No renal fluid collection is present. IMPRESSION: 1. Findings consistent with cystitis, bilateral pyelitis and right pyelonephritis. No renal abscess. Mild bilateral hydroureteronephrosis. 2. Extensive sigmoid diverticulosis. No evidence for acute diverticulitis. No bowel obstruction. ACT 112: Negative or not required by law. Electronically signed by: Yordan Espino M.D. 03/14/2024 7:06 PM Code Status & VTE Plan Code Status Full code VTE Prophylaxis Plan VTE Prophylaxis will be ordered: Yes Supervising Physician Co-Signing Physician Notes Attending addendum: I have physically seen this patient, have supervised the UNA's activities, and agree with the H&P unless as otherwise noted. Assessment and Plan: Sepsis due to pyelonephritis- CT scan of abdomen pelvis consistent with cystitis/pyelitis/right pyelonephritis/mild bilateral hydroureteronephrosis- Follow urine culture and sensitivity Follow-up blood culture and sensitivity Initial urine culture and sensitivity on 03/09/2024 with E. coli resistant to Unasyn and fluoroquinolones Continue cefepime 2 g IV every 12 hours begun in the ED Status post 1 L normal saline bolus from the ED Give additional 500 mill normal saline bolus now Hypertension- Hold lisinopril continue verapamil with hold parameters Diabetes mellitus- Hold metformin Placed on Accu-Cheks with NovoLog SSI PG Care Time/CCT Total # of Minutes Spent Total Time Spent with Patient: Total time spent is greater than 50% in coordination of care (as documented) at patient's floor/unit and/or counseling patient: Coding [place] [address] INT INP/OBS CARE 2/55MIN Patient Type Established Medical Decision Making Moderate Complexity Diagnoses Sepsis A41.9 Pyelonephritis N12 B-cell lymphoma C85.10 Nausea R11.0 Diabetes E11.9 Hypertension I10
[2024-03-14] MEDS: SODIUM CHLORIDE 0.9% 500 ML IV ONE (20:47)
[2024-03-14] MEDS ORDERED: CARBOHYDRATES FOR HYPOGLYCEMIA PO PRN (21:04)
[2024-03-14] MEDS ORDERED: GLUCOSE 40% GEL 15 GM TUBE PO PRN (21:04)
[2024-03-14] MEDS ORDERED: DEXTROSE 50% 50 ML SYRINGE IV PRN (21:04)
[2024-03-14] MEDS ORDERED: GLUCOSE 10 TAB/TUBE PO PRN (21:04)
[2024-03-14] MEDS ORDERED: GLUCAGON FOR INJ 1 MG VIAL SQ PRN (21:04)
[2024-03-14] MEDS: PANTOprazole 40 MG in SYRINGE 0 ML IV ONE (21:27)
[2024-03-14] MEDS: MoRPHine SULFATE 2 MG/ML CARP IV PRN (21:27)
[2024-03-14] MEDS: ONDANSETRON INJ 2 MG/ML 2 ML VIAL IV PRN (21:27)
[2024-03-14] MEDS: PRAVASTATIN SOD 40 MG TAB PO SCH (22:44)
[2024-03-14] MEDS: GABAPENTIN 600 MG TAB PO SCH (22:45)
[2024-03-14] MEDS: PROCHLORPERAZINE 5 MG in SYRINGE 4 ML IV ONE (23:10)
[2024-03-14] MEDS: ACETAMINOPHEN 325 MG TAB PO PRN (23:10)
[2024-03-15] MEDS: CEFEPIME 2,000 MG in SYRINGE 0 ML IV SCH (01:56)
[2024-03-15 06:59] LABS: Albumin Globulin Ratio 1.5 (0.9-2); Albumin Level 3.3 gm/dl (3.4-5.0); BUN Creatinine Ratio 17.5 (10-20); Bilirubin,Total 0.6 mg/dl (0.2-1.0); Calcium 8.6 mg/dl (8.6-10.3); Est GFR (Non-African American) 100.1 ml/min; Globulin 2.2 gm/dl (2.5-4.0); Magnesium 1.9 mg/dl (1.7-2.4); Total Protein 5.5 gm/dl (6.0-8.3)
[2024-03-15 07:07] LABS: Prothrombin Time 10.9 Seconds (9.0-12.0)
[2024-03-15 07:27] LABS: Hematocrit (blood only) 31.1 % (37.0-47.0); Hemoglobin 10.3 g/dl (12.0-16.0); Mean Corpuscular Hemoglobin 30.8 pg (25.0-34.0); Mean Corpuscular Hgb Conc 33.1 g/dL (32.0-36.0); Mean Corpuscular Volume 93.1 fL (80.0-100.0); Mean Platelet Volume 10.3 fL (9.4-12.4); Platelet Count 68 K/uL (130-400); RDW Coefficient of Variation 12.9 % (11.5-14.5); RDW Standard Deviation 44.1 fL (36.4-46.3); Red Blood Count 3.34 M/uL (4.20-5.40); White Blood Count 2.13 K/ul (4.8-10.8)
[2024-03-15 07:28] LABS: ANC (manual) 1.47 K/uL (1.4-6.5); Dohle Bodies 2+; Lymphocytes % (manual) 14 %; Monocytes # (manual) 0.36 K/uL (0.11-0.59); Monocytes % (manual) 17 %; Neutrophils # (manual) 1.47 K/uL (1.40-6.50); Neutrophils % (manual) 69 %; Polychromasia 1+
--- NOTE | 2024-03-15 07:41 | XRay Report ---
XR chest 1V portable CLINICAL HISTORY: sepsis, immunocompromised COMPARISON STUDY: PET/CT October 09, 2023. Chest radiograph July 30, 2023 FINDINGS: Left subclavian [id number] is intact. Tip is within the distal SVC. Lung volumes are nor mal. Lungs are clear. There is no pneumothorax or pleural effusion. Cardiac size is normal. Mediastin al contours are normal. There is no evidence for pulmonary edema. IMPRESSION: No acute cardiopulmonary findings. ACT 112: Negative or not required by law. Electronically signed by: Yordan Espino M.D. 03/15/2024 7:40 AM
[2024-03-15] MEDS: PARoxetine HCL 10 MG TAB PO SCH (08:34)
[2024-03-15] MEDS: GABAPENTIN 600 MG TAB PO SCH (08:34)
[2024-03-15] MEDS: VERAPAMIL HCL 240 MG TABCR PO SCH (08:34)
[2024-03-15] MEDS: PANTOprazole 40 MG TAB PO SCH (08:34)
[2024-03-15] MEDS: INSULIN ASPART PER UNIT CHARGE SC SCH (08:44)
[2024-03-15 10:53] LABS: A calco-baum cmplx NotReported Not Detected (NotDetected); Bact fragilis Not Reported Not Detected (NotDetected); Blood Culture Id Panel See PCR Comment (NotDetected); C auris Not Reported Not Detected (NotDetected); CTX-M Resistant Gene Not Detected (NotDetected); Calbicans Not Reported Not Detected (NotDetected); Candida glabrata Not Reported Not Detected (NotDetected); Candida krusei Not Reported Not Detected (NotDetected); Cneoformans/gatti Not Reported Not Detected (NotDetected); Cparapsilosis Not Reported Not Detected (NotDetected); E cloacae compx Not Reported Not Detected (NotDetected); Efaecalis Not Reported Not Detected (NotDetected); Efaecium Not Reported Not Detected (NotDetected); Enterobacterales DETECTED (NotDetected); Enterobacterales Not Reported DETECTED (NotDetected); Escherichia coli Not Reported DETECTED (NotDetected); H influenzae Not Reported Not Detected (NotDetected); IMP Resistant Gene Not Detected (NotDetected); K aerogenes Not Reported Not Detected (NotDetected); KPC Resistant Gene Not Detected (NotDetected); Koxytoca Not Reported Not Detected (NotDetected); Kpneumoniae grp Not Reported Not Detected (NotDetected); Lmonocyt Not Reported Not Detected (NotDetected); N meningitidis Not Reported Not Detected (NotDetected); NDM Resistant Gene Not Detected (NotDetected); OXA 48 Like Resistant Gene Not Detected (NotDetected); P aeruginosa Not Reported Not Detected (NotDetected); Proteus spp Not Reported Not Detected (NotDetected); Salmonella spp Not Reported Not Detected (NotDetected); Staph lugdunensis Not Reported Not Detected (NotDetected); Staph spp. Not Reported Not Detected (NotDetected); Staphaureus Not Reported Not Detected (NotDetected); Staphepi Not Reported Not Detected (NotDetected); Stenmaltophilia Not Reported Not Detected (NotDetected); Strep agal(GrpB) Not Reported Not Detected (NotDetected); Strep pneum Not Reported Not Detected (NotDetected); Strep pyog (GrpA) Not Reported Not Detected (NotDetected); Strep spp Not Reported Not Detected (NotDetected); VIM Resistant Gene Not Detected (NotDetected); mcr-1 Colistin Resistant Gene Not Detected (NotDetected)
[2024-03-15] MEDS: HYDROCODONE/ACETAMOPHEN 5/325MG TAB PO PRN (15:47)
--- NOTE | 2024-03-15 16:04 | Infectious Disease Consult ---
Date of Consultation March 15, 2024 Assessment & Plan (1) E coli bacteremia: (2) Pyelonephritis: (3) B-cell lymphoma: (4) Diabetes: Plan 63yo F with h/o DLBCL s/p chemo completed Oct 2023, now being monitored, chest port still in place, T2DM, HTN who presented on 03/14 with fever, suprapubic and right flank pain. She reported having pain and nausea x 1 week which progressed to right flank pain. On day of admission, she had a temp to 101.6 at home along with 1 episode of nonbloody emesis. She also reported urinary frequency and pressure. Here she has been febrile. BP stable. WBC 2.80, platelet 90s, Cr wnl, AST/ALT wnl. Lipase 17, PCT 0.18. UA with > 50 WBC. CTAP with IV contrast showed findings c/w cystitis, bilateral pyelitis and right pyelonephritis, mild bl hydroureteronephrosis; extensive sigmoid diverticulosis, no e/o acute diverticulitis. CXR negative. She was started on cefepime. BCx and UCx returned positive with GNR. ID consulted 03/15. Per chart, it seems the port site did not appear infected and patient also didnt want port removed. The likely source for her bacteremia is the urine, given cultures and findings of pyelonephritis. Ideally, if port is not being used anymore, then it should be removed. Would also pursue removal if there is hemodynamic instability, persistent bacteremia, or MDR gram negatives. Will continue on cefepime and follow up culture results. # GNR bacteremia (BCID w E coli) # Right pyelonephritis, bl pyelitis, and cystitis UCX with GNR # bl hydroureteronephrosis # h/o DLBCL s/p chemo - favor removal of port if not being used (though patient would like to keep it), however, strong indication for removal if there is any hemodynamic instability, persistence of bacteremia, or MDR organism - continue cefepime 2g IV q8h - f/u blood cx and urine cx - may consider urology consult for hydroureteronephrosis - I will see patient with telepresenter tomorrow ID will continue to follow. If questions or concerns, contact Infectious Disease Call Center . Belkis Underwood MD [facility], Division of Infectious Diseases [facility]: [phone] Consultation Information This patient recommendation is based on a telemedicine consult request which was completed asynchronously through chart review and information provided by the primary physician. The patient was not seen or examined today. The evaluation is consultative in nature and all patient care and treatment decisions can either be accepted or rejected by the patient's primary hospital-based treating physician using their own independent medical judgment for their patient. Wheelchair Van Operator First Responder contact information: Please call ID Connect Call Center . (Phone Number For Physician Use Only) Time Spent Reviewing Chart: 31+ minutes History of Present Illness Reason for Consultation: GNR bacteremia from UTI, patient with midline Attending Physician: Pernell Montes History of Present Illness 63yo F with h/o DLBCL s/p chemo completed Oct 2023, now being monitored, chest port still in place, T2DM, HTN who presented on 03/14 with fever, suprapubic and right flank pain. She reported having pain and nausea x 1 week which progressed to right flank pain. On day of admission, she had a temp to 101.6 at home along with 1 episode of nonbloody emesis. She also reported urinary frequency and pressure. Here she has been febrile. BP stable. WBC 2.80, platelet 90s, Cr wnl, AST/ALT wnl. Lipase 17, PCT 0.18. UA with > 50 WBC. CTAP with IV contrast showed findings c/w cystitis, bilateral pyelitis and right pyelonephritis, mild bl hydroureteronephrosis; extensive sigmoid diverticulosis, no e/o acute diverticulitis. CXR negative. She was started on cefepime. BCx and UCx returned positive with GNR. ID consulted 03/15. Allergies Allergy/AdvReac Type Severity Reaction Status Date / Time doxycycline Allergy Intermediate Hives Verified 07/30/23 05:47 niacin Allergy Intermediate EXTREMELY Verified 07/30/23 05:47 BRIGHT RED AND BURNY SKIN gluten AdvReac Mild Gastrointestinal Verified 07/30/23 05:47 Upset Home Medications Medication Instructions Recorded Confirmed Type xabtuilnps-zgknacuigqiyl-qrvbcznm 1 - 2 tab PO DAILY PRN Migraine 06/13/19 03/14/24 History 50 mg-325 mg-40 mg tablet Headache #30 tabs lisinopril 10 mg tablet 10 mg PO HS 06/13/19 03/14/24 History pantoprazole 40 mg tablet,delayed 40 mg PO QAM 06/13/19 03/14/24 History release verapamil 240 mg tablet,extended 240 mg PO QAM #30 tabs 06/13/19 03/14/24 History release pravastatin 40 mg tablet 40 mg PO HS 09/19/20 03/14/24 History gabapentin 600 mg tablet 1,200 mg PO HS 10/02/20 03/14/24 History gabapentin 600 mg tablet 600 mg PO QAM 10/02/20 03/14/24 History hydrocodone 5 mg-acetaminophen 325 1 tab PO DAILY PRN Pain 01/11/21 03/14/24 History mg tablet multivitamin 1 tab PO QAM 04/23/21 03/14/24 History metformin 850 mg tablet 850 mg PO QPM 08/01/21 03/14/24 History paroxetine HCl 10 mg tablet 10 mg PO QAM 11/18/22 03/14/24 History Medical Marijuana 1 dose PO UD PRN Pain 06/03/23 03/14/24 History lidocaine-prilocaine 2.5 %-2.5 % 1 applic topical UD PRN Other 03/14/24 03/14/24 History topical cream ondansetron HCl 4 mg tablet 4 mg PO BID PRN n/v 03/14/24 03/14/24 History Patient History Medical History (Updated 03/15/24 @ 16:09 by Belkis Underwood MD) B-cell lymphoma Low grade fever pt stated she has been having a low grade temperature/fever since december 2022, on a daily basis since the discovery of the large lymph node in her neck. Enlarged lymph node in neck has had MRI screening History of fractured vertebra L4, 01/22/2022, no sx required Depression Back problem Endometrial cancer dx 1999, sx tx only History of bronchitis none since 2019 or 2020 History of anemia iron infusion and B12 injection set for 07/29/23 at [facility] Medical marijuana use 3-4x per week Degenerative disc disease Osteoarthritis Osteopenia Fatty liver Diverticulosis hx IBS (irritable bowel syndrome) History of endometrial cancer LASHON-BSO TMJ (dislocation of temporomandibular joint) clicking, no locking Sleep apnea not currently using CPAP>has lost over 100 pounds in last 3 years, has not had a repeated sleep study Surgical History (Updated 07/30/23 @ 08:43 by Melanie Queen RN) Port-A-Cath in place (07/30/23) Insertion Access Port Left Subclavian Vein(Left) - Gerson Oconnell MD, FACS Hx of biopsy (06/11/23) Laparoscopic Biopsy of the Right excisional Iliac Node (Right) - Gerson Oconnell MD, FACS History of lymph node excision (01/22/21) Robotic-assisted laparoscopic right pelvic lymph node dissection, possible right sided groin lymph node dissection Dr. Tyrese Roper, @ [facility] [place] Status post epidural steroid injection History of anesthesia reaction woke up during foot surgery History of toe surgery x 2 History of uvulopalatopharyngoplasty History of tonsillectomy History of esophagogastroduodenoscopy (EGD) History of colonoscopy History of total abdominal hysterectomy and bilateral salpingo-oophorectomy H/O oral surgery Family History Father Dyslipidemia Hx of CABG Hypertension Myocardial infarction Heart disease Stroke Uncle Colorectal cancer Diabetes Heart disease Hypertension Aunt Osteoporosis Breast cancer Mother Ovarian cancer Uterine cancer Cancer Brother Diabetes Heart disease Hypertension Other No family history of adverse response to anesthesia Social History Smoking Status: Former smoker Tobacco Type: Cigarettes Age Quit Using Tobacco: 47; Second Hand Exposure: No; Do You Dip or Chew Tobacco: No; Hx Alcohol Use: No Hx Substance Use: Yes Last Used Substance: Days (ago) Last Used Substance Other:: capsules and tinctures, 3-4x week Substance Use Type Other:: medical marijuana Preferred Language: Greek Communication Ability: Effective Visual Impairment: Limited Mental Health Unit Lead Psychologist Required: No Beliefs That Will Affect Care: None marital status: Current Living Situation: Alone current occupational status: employed current occupation: [employer] How many Children do You have: 1 Other Information That Helps Us Care for You: No Feels Safe at Home: Yes Safety Concerns: Feels Safe At This Time Diet: diabetic during the past year weight has: remained stable Assistive Devices: Walker and Other Results & Data Vital Signs (Past 12 Hours) Vital Signs Temp Pulse Pulse Resp BP BP Pulse Ox 03/15/24 15:53 38 C H 89 18 127/86 96 03/15/24 15:00 88 03/15/24 11:49 37.2 C 65 18 125/81 96 03/15/24 09:32 74 18 115/77 96 03/15/24 08:00 03/15/24 07:43 36.6 C 66 18 98/65 L 98 03/15/24 07:00 63 O2 Del Method 03/15/24 15:53 Room Air 03/15/24 15:00 03/15/24 11:49 Room Air 03/15/24 09:32 Room Air 03/15/24 08:00 Room Air 03/15/24 07:43 Room Air 03/15/24 07:00 Laboratory Results Labs reviewed. Diagnostic Findings Imaging reviewed.
--- NOTE | 2024-03-15 17:56 | Hospitalist Progress Note ---
Date of Service March 15, 2024 Assessment & Plan (1) Sepsis: Plan: Admit to med telemetry likely secondary to complicated UTI Currently stable and nontoxic-appearing Presented to the ED today due to to progressive suprapubic pain, nausea, right flank pain and fevers Patient met sepsis criteria on arrival with leukopenia of 2.8, heart rate of 97, and source being her urine/pyelonephritis Lactate was within normal limits, patient received 1 L normal saline and a dose of cefepime in the ED -Concern given gram negative bacteremia -Will consult ID regarding possibility to remove midline. - will continue cefepime. impaging showing possible hydronephrosis. (2) Pyelonephritis: Plan: Possible chemotherapy induced pancytopenia Noted on CT of abdomen pelvis with IV contrast CT reviewed also noted bilateral pyelitis and findings consistent with cystitis but was negative for signs of renal abscess Noted to have mild bilateral hydroureteronephrosis Positive right CVA tenderness Renal function is currently stable, will continue cefepime for now Rest of care per sepsis plan (3) B-cell lymphoma: Plan: Patient completed chemotherapy in October of this year Noted to be leukopenic today along with platelet count of 92 and lymphocyte count of 0.28 No signs of bleeding Will obtain peripheral smear for further assessment (4) Nausea: Plan: Nausea is likely related to her current infection As needed Zofran ordered (5) Diabetes: Plan: Hold metformin for now Monitor BSG ACHS, goal is [id number] Will start with conservative regimen with CF of 50 and CR of 15 ACHS Adjust regimen as needed (6) Hypertension: Plan: Currently stable Will hold lisinopril for now to avoid hypotension with current sepsis Will continue verapamil for now Continue to monitor Admission and Anticipated Discharge Date Admission Date: March 14, 2024 Subjective Patient reports feeling better. Review of Systems Review of Systems: All systems reviewed & are unremarkable except as noted in HPI & below Physical Exam Physical Exam: Physical Exam: General: In no acute distress, stated age, chronically ill appearing but non- toxic HEENT: Normocephalic, atraumatic Chest/Pulm: Mediport located in the left upper chest is without signs of infection, No respiratory distress, symmetrical chest expansion, clear breath sounds throughout Cardiac: RRR, no murmurs noted Abdomen: normoactive bowel sounds, soft, mildly tender in the suprapubic region but otherwise non-tender Extremities: Radial, dorsalis pedis, and posterior tibial pulses are intact and symmetrical, no edema noted in the BL LE's Negative CVA tenderness Skin: Warm, dry, no rashes , lesions, or scars noted Neuro: Alert and oriented to person, place, month, year, and president, no focal defects, no tremors noted Psych: No acute distress, calm and cooperative during the exam Results & Data Results & Data Vital Signs (Past 12 Hours) Vital Signs Temp Pulse Pulse Resp BP BP Pulse Ox 03/15/24 17:16 37.2 C 03/15/24 15:53 38 C H 89 18 127/86 96 03/15/24 15:00 88 03/15/24 11:49 37.2 C 65 18 125/81 96 03/15/24 09:32 74 18 115/77 96 03/15/24 08:00 03/15/24 07:43 36.6 C 66 18 98/65 L 98 03/15/24 07:00 63 O2 Del Method 03/15/24 17:16 03/15/24 15:53 Room Air 03/15/24 15:00 03/15/24 11:49 Room Air 03/15/24 09:32 Room Air 03/15/24 08:00 Room Air 03/15/24 07:43 Room Air 03/15/24 07:00 PG Care Time/CCT Total # of Minutes Spent Total Time Spent with Patient: Total time spent is greater than 50% in coordination of care (as documented) at patient's floor/unit and/or counseling patient: Coding Level of Care Code 40009 SUB INP/OBS CARE 2/35MIN Diagnoses Sepsis A41.9 Pyelonephritis N12 B-cell lymphoma C85.10 Nausea R11.0 Diabetes E11.9 Hypertension I10
[2024-03-16 08:36] LABS: Albumin Globulin Ratio 1.3 (0.9-2); Albumin Level 3.5 gm/dl (3.4-5.0); BUN Creatinine Ratio 17.7 (10-20); Bilirubin,Total 0.5 mg/dl (0.2-1.0); C Reactive Protein 11.84 mg/dl (0-0.5); Calcium 8.6 mg/dl (8.6-10.3); Creatinine Clr Calc Pharmacy 75.4 ml/min; Est GFR (African American) 112.8 ml/min; Est GFR (Non-African American) 97.3 ml/min; Globulin 2.7 gm/dl (2.5-4.0); Magnesium 1.7 mg/dl (1.7-2.4); Potassium 3.8 mmol/L (3.5-5.1); Total Protein 6.2 gm/dl (6.0-8.3)
[2024-03-16 08:44] LABS: Prothrombin Time 10.9 Seconds (9.0-12.0)
--- NOTE | 2024-03-16 09:10 | Infectious Disease Progress Nt ---
Date of Service March 16, 2024 Assessment & Plan (1) E coli bacteremia: (2) Pyelonephritis: (3) B-cell lymphoma: (4) Diabetes: Plan 63yo F with h/o DLBCL s/p chemo completed Oct 2023, now being monitored, chest port still in place, T2DM, HTN who presented on 03/14 with fever, suprapubic and right flank pain. She reported having pain and nausea x 1 week which progressed to right flank pain. On day of admission, she had a temp to 101.6 at home along with 1 episode of nonbloody emesis. She also reported urinary frequency and pressure. Here she has been febrile. BP stable. WBC 2.80, platelet 90s, Cr wnl, AST/ALT wnl. Lipase 17, PCT 0.18. UA with > 50 WBC. CTAP with IV contrast showed findings c/w cystitis, bilateral pyelitis and right pyelonephritis, mild bl hydroureteronephrosis; extensive sigmoid diverticulosis, no e/o acute diverticulitis. CXR negative. She was started on cefepime. BCx with GNR, UCx with E coli. ID consulted 03/15. Patients preference to keep port in. Blood cx are still in process. I discussed with patient that ideally port should be removed in bacteremia and if it is not being used anymore, however given her preference we can hold off for now. However, if BCX from 03/15 are positive or if E coli resistance pattern is different from UCx, then I would strongly advise removal of port. # GNR bacteremia (BCID w E coli) # Right pyelonephritis, bl pyelitis, and cystitis 2/2 E coli # bl hydroureteronephrosis # h/o DLBCL s/p chemo - f/u BCX - consider urology consult for hydroureteronephrosis - will keep her on cefepime for now while waiting for BCx susceptibilities - if BCx from 03/15 are positive or if organism in BCx has a different resistant pattern or a different pathogen, then port will need to be removed ID will continue to follow. If questions or concerns, contact Infectious Disease Call Center . Belkis Underwood MD [facility], Division of Infectious Diseases [facility]: [phone] Admission and Anticipated Discharge Date Admission Date: March 14, 2024 Subjective Subsequent visit was provided via telemedicine using two-way real-time interactive telecommunication between the patient and the telemedicine provider. For the duration of the visit, the provider was performing the assessment from a different facility than the patient. This includesuse of bluetooth stethoscope forauscultationperformed by the telepresenter that the telemedicine provider can hear if described in the physical exam. Crib Pad Maker contact information: Please call [facility] Connect Call Center [phone]. (Phone Number For Physician Use Only) After establishing a telemedicine visit, patient was: Patient was verified with two unique identifiers, Patient/authorized rep acknowledged consent and understanding and Gave permission to continue telehealth session Time Spent with Patient: Subsequent => 55 min Patient feeling well. She is tearful since her sister recently . She notes improvement in her pain. Still with urinary pressure. Physical Exam Physical Exam: General: Awake, alert, no acute distress HEENT: NC/AT, EOMI, mmm Neck: supple Lungs: respirations non-labored Heart: nl peripheral perfusion Chest: left port site clean, nontender, no erythema Abdomen: soft, NT/ND Back: no spinal or CVA tenderness Ext: no LE edema Skin: no rash Neuro: moving all extremities Results & Data Vital Signs (Past 12 Hours) Vital Signs Temp Pulse Pulse Resp BP Pulse Ox O2 Del Method 03/16/24 07:45 87 03/16/24 07:20 37.2 C 95 H 18 125/81 96 Room Air 03/16/24 02:59 37.1 C 89 16 116/77 96 Room Air 03/16/24 00:36 87 03/15/24 23:07 37.4 C 86 16 130/81 95 Room Air Laboratory Results Labs reviewed. Diagnostic Findings Imaging reviewed.
[2024-03-16 09:13] LABS: Hematocrit (blood only) 33.2 % (37.0-47.0); Hemoglobin 11.1 g/dl (12.0-16.0); Mean Corpuscular Hemoglobin 30.9 pg (25.0-34.0); Mean Corpuscular Hgb Conc 33.4 g/dL (32.0-36.0); Mean Corpuscular Volume 92.5 fL (80.0-100.0); Mean Platelet Volume 10.1 fL (9.4-12.4); Platelet Count 85 K/uL (130-400); RDW Coefficient of Variation 12.8 % (11.5-14.5); RDW Standard Deviation 43.3 fL (36.4-46.3); Red Blood Count 3.59 M/uL (4.20-5.40); White Blood Count 2.96 K/ul (4.8-10.8)
[2024-03-16 09:16] LABS: ALC (manual) 0.27 K/uL (1.2-3.4); Basophils # (manual) 0.06 K/uL (0-0.2); Basophils % (manual) 2 %; Dohle Bodies 1+; Eosinophils # (manual) 0.03 K/uL (0-0.50); Eosinophils % (manual) 1 %; Lymphocytes # (manual) 0.27 K/uL (1.2-3.4); Lymphocytes % (manual) 9 %; Monocytes % (manual) 17 %; Neutrophils % (manual) 71 %
--- NOTE | 2024-03-16 10:09 | Urology Consultation ---
Date of Consultation March 16, 2024 Assessment & Plan (1) Pyelonephritis: (2) Hydronephrosis: Plan 63yo/F admitted with sepsis secondary to UTI/Pyelo. CT imaging on arrival demonstrated cystitis, bilateral pyelitis and right pyelonephritis, no renal abscess, and mild bilateral hydroureteronephrosis. - Afebrile, hemodynamically stable at present. - Labs reviewed - wbc 2.96, hemoglobin 11.1, creatinine 0.62. - Urine culture prelim E.coli; Blood cultures prelim gram negative bacilli, repeat pending. - On IV Cefepime. ID consulted. - Voiding spontaneously. - No plan for intervention - CT findings consistent with pyelitis/pyelonephritis. Suspect the bilateral hydronephrosis is secondary to ascending infection. - We discussed [place] catheter for maximum bladder decompression while treating infection. She prefers to hold off for now. Recommend bladder scan after next void to ensure she is emptying. - Continue antibiotics and tailor as culture data becomes available. - Continue supportive care. - If patient develops fever or other acute changes, we can revisit ureteral stent placement. - Urology will follow along. History of Present Illness Attending Physician: Pernell Montes History of Present Illness 63-year-old female with a past medical history significant for diffuse large B- cell lymphoma, endometrial cancer, hypertension, diabetes mellitus type 2 who presented to [facility] ED on 03/14/2024 with complaints of fever and nausea. On arrival she was noted to have a temp of 37.8C but was otherwise stable. Labs were significant for a leukopenia of 2.8, creatinine 0.59, and lactate within normal limits. UA with 3+ leukocyte esterase, greater than 50 WBC, and 2+ bacteria. CT of the abdomen/pelvis with IV contrast demonstrated cystitis, bilateral pyelitis and right pyelonephritis. No renal abscess. Mild bilateral hydroureteronephrosis. ED course: Cefepime, 1 L NSS, Fentanyl, Zofran. Pt admitted to medicine service. Urine and blood cultures collected. CT abdomen pelvis- 1. Findings consistent with cystitis, bilateral pyelitis and right pyelonephritis. No renal abscess. Mild bilateral hydroureteronephrosis. 2. Extensive sigmoid diverticulosis. No evidence for acute diverticulitis. No bowel obstruction.Infectious disease consulted. Urology was consulted for UTI and Hydronephrosis Pt seen at bedside this AM. Awake, sitting up in bed on arrival. No acute distress. Overall feeling much better. Denies f/c/n/v. She had back/flank pain on admit but that has since resolved. Voiding without issue. Denies hematuria or dysuria. She denies prior hx. Denies hx of recurrent UTI. Has never seen a urologist. Allergies Allergy/AdvReac Type Severity Reaction Status Date / Time doxycycline Allergy Intermediate Hives Verified 07/30/23 05:47 niacin Allergy Intermediate EXTREMELY Verified 07/30/23 05:47 BRIGHT RED AND BURNY SKIN gluten AdvReac Mild Gastrointestinal Verified 07/30/23 05:47 Upset Home Medications Medication Instructions Recorded Confirmed Type ktgayxnztj-ttcehzoskhjyf-xmpbkqwh 1 - 2 tab PO DAILY PRN Migraine 06/13/19 03/14/24 History 50 mg-325 mg-40 mg tablet Headache #30 tabs lisinopril 10 mg tablet 10 mg PO HS 06/13/19 03/14/24 History pantoprazole 40 mg tablet,delayed 40 mg PO QAM 06/13/19 03/14/24 History release verapamil 240 mg tablet,extended 240 mg PO QAM #30 tabs 06/13/19 03/14/24 History release pravastatin 40 mg tablet 40 mg PO HS 09/19/20 03/14/24 History gabapentin 600 mg tablet 1,200 mg PO HS 10/02/20 03/14/24 History gabapentin 600 mg tablet 600 mg PO QAM 10/02/20 03/14/24 History hydrocodone 5 mg-acetaminophen 325 1 tab PO DAILY PRN Pain 01/11/21 03/14/24 History mg tablet multivitamin 1 tab PO QAM 04/23/21 03/14/24 History metformin 850 mg tablet 850 mg PO QPM 08/01/21 03/14/24 History paroxetine HCl 10 mg tablet 10 mg PO QAM 11/18/22 03/14/24 History Medical Marijuana 1 dose PO UD PRN Pain 06/03/23 03/14/24 History lidocaine-prilocaine 2.5 %-2.5 % 1 applic topical UD PRN Other 03/14/24 03/14/24 History topical cream ondansetron HCl 4 mg tablet 4 mg PO BID PRN n/v 03/14/24 03/14/24 History Patient History Medical History (Updated 03/16/24 @ 10:05 by LEIGH Cuellar) B-cell lymphoma Low grade fever pt stated she has been having a low grade temperature/fever since december 2022, on a daily basis since the discovery of the large lymph node in her neck. Enlarged lymph node in neck has had MRI screening History of fractured vertebra L4, 01/22/2022, no sx required Depression Back problem Endometrial cancer dx 1999, sx tx only History of bronchitis none since 2019 or 2020 History of anemia iron infusion and B12 injection set for 07/29/23 at [facility] Medical marijuana use 3-4x per week Degenerative disc disease Osteoarthritis Osteopenia Fatty liver Diverticulosis hx IBS (irritable bowel syndrome) History of endometrial cancer LASHON-BSO TMJ (dislocation of temporomandibular joint) clicking, no locking Sleep apnea not currently using CPAP>has lost over 100 pounds in last 3 years, has not had a repeated sleep study Surgical History (Updated 07/30/23 @ 08:43 by Melanie Queen RN) Port-A-Cath in place (07/30/23) Insertion Access Port Left Subclavian Vein(Left) - Gerson Oconnell MD, FACS Hx of biopsy (06/11/23) Laparoscopic Biopsy of the Right excisional Iliac Node (Right) - Gerson Oconnell MD, FACS History of lymph node excision (01/22/21) Robotic-assisted laparoscopic right pelvic lymph node dissection, possible right sided groin lymph node dissection Dr. Tyrese Roper, @ [facility] [place] Status post epidural steroid injection History of anesthesia reaction woke up during foot surgery History of toe surgery x 2 History of uvulopalatopharyngoplasty History of tonsillectomy History of esophagogastroduodenoscopy (EGD) History of colonoscopy History of total abdominal hysterectomy and bilateral salpingo-oophorectomy H/O oral surgery Family History Father Dyslipidemia Hx of CABG Hypertension Myocardial infarction Heart disease Stroke Uncle Colorectal cancer Diabetes Heart disease Hypertension Aunt Osteoporosis Breast cancer Mother Ovarian cancer Uterine cancer Cancer Brother Diabetes Heart disease Hypertension Other No family history of adverse response to anesthesia Social History Smoking Status: Former smoker Tobacco Type: Cigarettes Age Quit Using Tobacco: 47; Second Hand Exposure: No; Do You Dip or Chew Tobacco: No; Hx Alcohol Use: No Hx Substance Use: Yes Last Used Substance: Days (ago) Last Used Substance Other:: capsules and tinctures, 3-4x week Substance Use Type Other:: medical marijuana Preferred Language: Italian Communication Ability: Effective Visual Impairment: Limited Recycling 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 Required: No Beliefs That Will Affect Care: None marital status: Current Living Situation: Alone current occupational status: employed current occupation: [employer] How many Children do You have: 1 Other Information That Helps Us Care for You: No Feels Safe at Home: Yes Safety Concerns: Feels Safe At This Time Diet: diabetic during the past year weight has: remained stable Assistive Devices: Walker and Other Review of Systems Review of Systems: All systems reviewed & are unremarkable except as noted in HPI & below Physical Exam Constitutional: no acute distress Neck: normal visual inspection Respiratory: no respiratory distress and no labored breathing Musculoskeletal: Head/Neck/Chest: normocephalic Skin: No visible rashes or lesions to exposed skin areas Neurologic: moves all extremities and awake Psychiatric: A+Ox3, euthymic affect Results & Data Vital Signs (Past 12 Hours) Vital Signs Temp Pulse Pulse Resp BP Pulse Ox O2 Del Method 03/16/24 07:45 87 03/16/24 07:20 37.2 C 95 H 18 125/81 96 Room Air 03/16/24 02:59 37.1 C 89 16 116/77 96 Room Air 03/16/24 00:36 87 03/15/24 23:07 37.4 C 86 16 130/81 95 Room Air PG Care Time/CCT Total # of Minutes Spent Total Time Spent with Patient: Total time spent is greater than 50% in coordination of care (as documented) at patient's floor/unit and/or counseling patient: Coding Level of Care Code 52725 IN/OBS CONSULT LVL 3,45M Diagnoses Pyelonephritis N12 Hydronephrosis N13.30
--- NOTE | 2024-03-16 16:33 | Surgery Consultation ---
Date of Consultation March 16, 2024 Assessment & Plan (1) E coli bacteremia: This is a 63yF with a PMH of endometrial ca, HTN, HLD, b cell lymphoma who presents to the [facility] ED on 03/14/24 with fevers and flank pain. Upon workup she was found to have + bacteremia on 03/14 for gram negative bacilli and urine Cx + for ecoli, with CT imaging concerning for pyelonephritis. She has been admitted to medicine and has been improving with IV abx treatment. Infectious disease was consulted and given bacteremia are recommending port removal. Blood cx from 03/15 and 03/16 pending to date. Patient states that it was placed last year by Dr. Oconnell (08/13) after dx of b cell lymphoma. She has used it for chemotherapy and has had no issues with it. She has an oncology appt next week and is hopeful that she will not require future chemo as she has had good response and it is not actively being used. Today's labs show WBC 2.9, Hbg 11, plt 85. Vitals are stable and patient is afebrile. Port appears c/d/i without superficial findings of infection. Discussed procedure with patient who is agreeable for port removal. We can plan on performing this in the OR tomorrow with Dr. Medeiros. Keep NPO at midnight. (2) Sepsis: Supervising Physician Co-Signing Physician Notes I personally saw and evaluated the patient with Debby Boland PA-C and agree with the assessment and plan. 63 yo female with sepsis, pyelonephritis, bacteremia with port in place Will plan on port removal due to her bacteremia Keep NPO History of Present Illness Attending Physician: Pernell Montes History of Present Illness This is a 63yF with a PMH of endometrial ca, HTN, HLD, b cell lymphoma who presents to the [facility] ED on 03/14/24 with fevers and flank pain. Patient states her symptoms started last week, however her flank pain continued to worsen through the wknd and she had a high fever on Thursday prompting her to come in for evaluation. Patient found to have + bacteremia on 03/14 for gram negative bacilli and urine Cx + for ecoli, with CT imaging concerning for pyelonephritis. She has been admitted to medicine and has been improving with IV abx treatment. Infectious disease was consulted and they said that if blood cx from 03/15 are positive, or if the blood grows a different pathogen from the urine then they recommend port removal. Although blood from 03/15 is not finalized (currently no growth to date) and blood/urine pathogens seem consistent with each other, I have discussed with medicine who says ID decided for definite removal of port in this situation regardless given her bacteremia. Patient states that it was placed last year by Dr. Oconnell (08/13) after dx of b cell lymphoma. She has used it for chemotherapy and has had no issues with it. No signs of superficial infection surrounding port. No CP/SOB, nausea/vomiting, abdominal pain. She has an oncology appt next week and is hopeful that she will not require future chemo as she has had good response and is not currently being used for oncologic purposes at this time. Allergies Allergy/AdvReac Type Severity Reaction Status Date / Time doxycycline Allergy Intermediate Hives Verified 07/30/23 05:47 niacin Allergy Intermediate EXTREMELY Verified 07/30/23 05:47 BRIGHT RED AND BURNY SKIN gluten AdvReac Mild Gastrointestinal Verified 07/30/23 05:47 Upset Home Medications Medication Instructions Recorded Confirmed Type yoivrquoiz-drxjsppuerbzq-aefmvuow 1 - 2 tab PO DAILY PRN Migraine 06/13/19 03/14/24 History 50 mg-325 mg-40 mg tablet Headache #30 tabs lisinopril 10 mg tablet 10 mg PO HS 06/13/19 03/14/24 History pantoprazole 40 mg tablet,delayed 40 mg PO QAM 06/13/19 03/14/24 History release verapamil 240 mg tablet,extended 240 mg PO QAM #30 tabs 06/13/19 03/14/24 History release pravastatin 40 mg tablet 40 mg PO HS 09/19/20 03/14/24 History gabapentin 600 mg tablet 1,200 mg PO HS 10/02/20 03/14/24 History gabapentin 600 mg tablet 600 mg PO QAM 10/02/20 03/14/24 History hydrocodone 5 mg-acetaminophen 325 1 tab PO DAILY PRN Pain 01/11/21 03/14/24 History mg tablet multivitamin 1 tab PO QAM 04/23/21 03/14/24 History metformin 850 mg tablet 850 mg PO QPM 08/01/21 03/14/24 History paroxetine HCl 10 mg tablet 10 mg PO QAM 11/18/22 03/14/24 History Medical Marijuana 1 dose PO UD PRN Pain 06/03/23 03/14/24 History lidocaine-prilocaine 2.5 %-2.5 % 1 applic topical UD PRN Other 03/14/24 03/14/24 History topical cream ondansetron HCl 4 mg tablet 4 mg PO BID PRN n/v 03/14/24 03/14/24 History Patient History Medical History B-cell lymphoma Low grade fever pt stated she has been having a low grade temperature/fever since december 2022, on a daily basis since the discovery of the large lymph node in her neck. Enlarged lymph node in neck has had MRI screening History of fractured vertebra L4, 01/22/2022, no sx required Depression Back problem Endometrial cancer dx 1999, sx tx only History of bronchitis none since 2019 or 2020 History of anemia iron infusion and B12 injection set for 07/29/23 at [facility] Medical marijuana use 3-4x per week Degenerative disc disease Osteoarthritis Osteopenia Fatty liver Diverticulosis hx IBS (irritable bowel syndrome) History of endometrial cancer LASHON-BSO TMJ (dislocation of temporomandibular joint) clicking, no locking Sleep apnea not currently using CPAP>has lost over 100 pounds in last 3 years, has not had a repeated sleep study Surgical History Port-A-Cath in place (07/30/23) Insertion Access Port Left Subclavian Vein(Left) - Gerson Oconnell MD, FACS Hx of biopsy (06/11/23) Laparoscopic Biopsy of the Right excisional Iliac Node (Right) - Gerson Oconnell MD, FACS History of lymph node excision (01/22/21) Robotic-assisted laparoscopic right pelvic lymph node dissection, possible right sided groin lymph node dissection Dr. Tyrese Roper, @ [facility] [place] Status post epidural steroid injection History of anesthesia reaction woke up during foot surgery History of toe surgery x 2 History of uvulopalatopharyngoplasty History of tonsillectomy History of esophagogastroduodenoscopy (EGD) History of colonoscopy History of total abdominal hysterectomy and bilateral salpingo-oophorectomy H/O oral surgery Family History Father Dyslipidemia Hx of CABG Hypertension Myocardial infarction Heart disease Stroke Uncle Colorectal cancer Diabetes Heart disease Hypertension Aunt Osteoporosis Breast cancer Mother Ovarian cancer Uterine cancer Cancer Brother Diabetes Heart disease Hypertension Other No family history of adverse response to anesthesia Social History Smoking Status: Former smoker Tobacco Type: Cigarettes Age Quit Using Tobacco: 47; Second Hand Exposure: No; Do You Dip or Chew Tobacco: No; Hx Alcohol Use: No Hx Substance Use: Yes Last Used Substance: Days (ago) Last Used Substance Other:: capsules and tinctures, 3-4x week Substance Use Type Other:: medical marijuana Preferred Language: Amharic Communication Ability: Effective Visual Impairment: Limited Hand Fretted Instrument Maker Required: No Beliefs That Will Affect Care: None marital status: Current Living Situation: Alone current occupational status: employed 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 How many Children do You have: 1 Other Information That Helps Us Care for You: No Feels Safe at Home: Yes Safety Concerns: Feels Safe At This Time Diet: diabetic during the past year weight has: remained stable Assistive Devices: Walker and Other Review of Systems Constitutional: + fever Respiratory: no dyspnea Cardiovascular: no chest pain Gastrointestinal: no abdominal pain Integumentary: no concerns w/ chest port Physical Exam Physical Exam: awake/alert, no distress Respiratory: normal respiratory effort Cardiovascular: Rate/Rhythm: regular rate Skin: no skin redness or concerns surrounding port Results & Data Vital Signs (Past 12 Hours) Vital Signs Temp Pulse Pulse Resp BP Pulse Ox O2 Del Method 03/16/24 15:28 98.6 F 70 18 109/72 96 Room Air 03/16/24 10:55 98.6 F 66 17 103/67 97 Room Air 03/16/24 08:00 Room Air 03/16/24 07:45 87 03/16/24 07:20 99.0 F 95 H 18 125/81 96 Room Air PG Care Time/CCT Total # of Minutes Spent Total Time Spent with Patient: Total time spent is greater than 50% in coordination of care (as documented) at patient's floor/unit and/or counseling patient: Coding Level of Care Code 08011 IN/OBS CONSULT LVL 3,45M Diagnoses E coli bacteremia R78.81; B96.20 Sepsis A41.9
--- NOTE | 2024-03-16 21:15 | Hospitalist Progress Note ---
Date of Service March 16, 2024 Assessment & Plan (1) Sepsis: Plan: Admit to med telemetry likely secondary to complicated UTI Currently stable and nontoxic-appearing Presented to the ED today due to to progressive suprapubic pain, nausea, right flank pain and fevers Patient met sepsis criteria on arrival with leukopenia of 2.8, heart rate of 97, and source being her urine/pyelonephritis Lactate was within normal limits, patient received 1 L normal saline and a dose of cefepime in the ED -Concern given gram negative bacteremia -Will consult ID regarding possibility to remove A port. - will continue cefepime. impaging showing possible hydronephrosis. consult urology: no intervention required. consulted surgery npo after midnight to remove mediport. (2) Pyelonephritis: Plan: Possible chemotherapy induced pancytopenia Noted on CT of abdomen pelvis with IV contrast CT reviewed also noted bilateral pyelitis and findings consistent with cystitis but was negative for signs of renal abscess Noted to have mild bilateral hydroureteronephrosis Positive right CVA tenderness Renal function is currently stable, will continue cefepime for now Rest of care per sepsis plan (3) B-cell lymphoma: Plan: Patient completed chemotherapy in October of this year Noted to be leukopenic today along with platelet count of 92 and lymphocyte count of 0.28 No signs of bleeding Will obtain peripheral smear for further assessment (4) Nausea: Plan: Nausea is likely related to her current infection As needed Zofran ordered (5) Diabetes: Plan: Hold metformin for now Monitor BSG ACHS, goal is [id number] Will start with conservative regimen with CF of 50 and CR of 15 ACHS Adjust regimen as needed (6) Hypertension: Plan: Currently stable Will hold lisinopril for now to avoid hypotension with current sepsis Will continue verapamil for now Continue to monitor Admission and Anticipated Discharge Date Admission Date: March 14, 2024 Subjective 63 yo female reports no new symptoms. She is agreeable for removing aport Review of Systems Review of Systems: All systems reviewed & are unremarkable except as noted in HPI & below Physical Exam Physical Exam: Physical Exam: General: In no acute distress, stated age, chronically ill appearing but non- toxic HEENT: Normocephalic, atraumatic Chest/Pulm: Mediport located in the left upper chest is without signs of infection, No respiratory distress, symmetrical chest expansion, clear breath sounds throughout Cardiac: RRR, no murmurs noted Abdomen: normoactive bowel sounds, soft, mildly tender in the suprapubic region but otherwise non-tender Extremities: Radial, dorsalis pedis, and posterior tibial pulses are intact and symmetrical, no edema noted in the BL LE's Negative CVA tenderness Skin: Warm, dry, no rashes , lesions, or scars noted Neuro: Alert and oriented to person, place, month, year, and president, no focal defects, no tremors noted Psych: No acute distress, calm and cooperative during the exam Results & Data Results & Data Vital Signs (Past 12 Hours) Vital Signs Temp Pulse Pulse Resp BP Pulse Ox O2 Del Method 03/16/24 19:30 37.0 C 89 16 120/77 96 Room Air 03/16/24 15:28 37.0 C 70 18 109/72 96 Room Air 03/16/24 13:03 63 03/16/24 10:55 37.0 C 66 17 103/67 97 Room Air PG Care Time/CCT Total # of Minutes Spent Total Time Spent with Patient: Total time spent is greater than 50% in coordination of care (as documented) at patient's floor/unit and/or counseling patient: Coding Level of Care Code 70924 SUB INP/OBS CARE 2/35MIN Diagnoses Sepsis A41.9 Pyelonephritis N12 B-cell lymphoma C85.10 Nausea R11.0 Diabetes E11.9 Hypertension I10
[2024-03-17 08:27] LABS: Prothrombin Time 10.6 Seconds (9.0-12.0)
[2024-03-17 08:36] LABS: Hemoglobin 11.5 g/dl (12.0-16.0); Mean Corpuscular Hemoglobin 30.7 pg (25.0-34.0); Mean Corpuscular Hgb Conc 33.8 g/dL (32.0-36.0); Mean Corpuscular Volume 90.9 fL (80.0-100.0); Mean Platelet Volume 9.7 fL (9.4-12.4); Platelet Count 109 K/uL (130-400); RDW Coefficient of Variation 12.6 % (11.5-14.5); Red Blood Count 3.74 M/uL (4.20-5.40); White Blood Count 2.77 K/ul (4.8-10.8)
[2024-03-17 08:37] LABS: Albumin Globulin Ratio 1.3 (0.9-2); Albumin Level 3.7 gm/dl (3.4-5.0); BUN Creatinine Ratio 19.3 (10-20); Bilirubin,Total 0.4 mg/dl (0.2-1.0); Est GFR (Non-African American) 100.1 ml/min; Globulin 2.9 gm/dl (2.5-4.0); Magnesium 1.9 mg/dl (1.7-2.4); Potassium 3.9 mmol/L (3.5-5.1); Total Protein 6.6 gm/dl (6.0-8.3)
[2024-03-17 08:59] LABS: ALC (manual) 0.28 K/uL (1.2-3.4); ANC (manual) 1.83 K/uL (1.4-6.5); Basophils # (manual) 0.03 K/uL (0-0.2); Basophils % (manual) 1 %; Dohle Bodies 1+; Eosinophils # (manual) 0.08 K/uL (0-0.50); Eosinophils % (manual) 3 %; Lymphocytes # (manual) 0.28 K/uL (1.2-3.4); Lymphocytes % (manual) 10 %; Monocytes # (manual) 0.55 K/uL (0.11-0.59); Monocytes % (manual) 20 %; Neutrophils # (manual) 1.83 K/uL (1.40-6.50); Neutrophils % (manual) 66 %
--- NOTE | 2024-03-17 09:32 | Urology Progress Note ---
Date of Service March 17, 2024 Assessment & Plan (1) Pyelonephritis: (2) Hydronephrosis: Plan 63yo/F admitted with sepsis secondary to UTI/Pyeloon 03/14/2024. CT imaging on arrival demonstrated cystitis, bilateral pyelitis and right pyelonephritis, no renal abscess, and mild bilateral hydroureteronephrosis. - Afebrile, hemodynamically stable at present. - Labs reviewed - wbc 2.77, hemoglobin 11.5, creatinine 0.57. - Urine culture E.coli; Blood cultures E. coli, repeat pending. - On IV ceftriaxone, ID following - Voiding spontaneously, PVR 0 yesterday. -Patient has history of lymphoma with surgical port removal today - No plan for intervention - Continue antibiotics and tailor as culture data becomes available. - Continue supportive care per primary team - Urology will follow peripherally -Please contact our team if patient develops any acute changes that we would require intervention -We will arrange outpatient follow-up in 1 to 2 weeks with urology Admission and Anticipated Discharge Date Admission Date: March 14, 2024 Subjective Patient resting comfortably in bed Denies any acute issues overnight Denies abdominal or flank pain Patient voiding spontaneously without discomfort Labs reviewed-03/17/24 Creatinine 0.59 WBCs 2.77 Hemoglobin 11.5 Review of Systems Review of Systems: 14 point review of systems negative exce pt for otherwise indicated. Physical Exam Constitutional: well developed and well nourished; no acute distress Respiratory: normal respiratory effort and able to speak in complete sentences Musculoskeletal: Extremities: extremities normal to inspection Psychiatric: Orientation: alert and oriented x 3 Results & Data Vital Signs (Past 12 Hours) Vital Signs Temp Pulse Pulse Resp BP Pulse Ox O2 Del Method 03/17/24 07:23 37.1 C 76 16 114/78 93 Room Air 03/17/24 03:08 36.9 C 82 16 121/79 97 Room Air 03/16/24 22:53 37.0 C 88 16 146/79 H 97 Room Air 03/16/24 22:00 70 PG Care Time/CCT Total # of Minutes Spent Total Time Spent with Patient: Total time spent is greater than 50% in coordination of care (as documented) at patient's floor/unit and/or counseling patient: Coding Level of Care Code 58799 SUB INP/OBS CARE 2/35MIN Diagnoses Pyelonephritis N12 Hydronephrosis N13.30
[2024-03-17] MEDS: cefTRIAXone SODIUM 2,000 MG/50 ML BAG IV SCH (09:44)
--- NOTE | 2024-03-17 09:54 | Surgery Progress Note ---
Date of Service March 17, 2024 Assessment & Plan (1) E coli bacteremia: Plan: Will proceed with port removal today Consent was obtained, risks discussed including bleeding, infection, catheter fracture Admission and Anticipated Discharge Date Admission Date: March 14, 2024 Subjective Pt seen and examined. No acute events overnight. Review of Systems Constitutional: no fever and no chills Physical Exam Constitutional: WD/WN, vitals as above Chest (Breasts): Additional Comments: Left chest with accessed port in place, no erythema or drainage Results & Data Vital Signs (Past 12 Hours) Vital Signs Temp Pulse Pulse Resp BP Pulse Ox O2 Del Method 03/17/24 07:23 37.1 C 76 16 114/78 93 Room Air 03/17/24 03:08 36.9 C 82 16 121/79 97 Room Air 03/16/24 22:53 37.0 C 88 16 146/79 H 97 Room Air 03/16/24 22:00 70 PG Care Time/CCT Total # of Minutes Spent Total Time Spent with Patient: Total time spent is greater than 50% in coordination of care (as documented) at patient's floor/unit and/or counseling patient: Coding Level of Care Code 13526 SUB INP/OBS CARE 10/15MIN Diagnoses E coli bacteremia R78.81; B96.20
--- NOTE | 2024-03-17 10:06 | Anesthesiology Consultation ---
Date of Service March 17, 2024 Assessment & Plan (1) Encounter for pre-operative examination: Chart Review Chart Review: Acceptable Risk for Surgery History Surgery Operation Date: 03/17/24 09:40 Proposed Procedures p Mediport Manuela - Daniel Medeiros DO Height/Weight Height: 5 ft 2 in Weight: 56.1 kg Allergies Allergy/AdvReac Type Severity Reaction Status Date / Time doxycycline Allergy Intermediate Hives Verified 07/30/23 05:47 niacin Allergy Intermediate EXTREMELY Verified 07/30/23 05:47 BRIGHT RED AND BURNY SKIN gluten AdvReac Mild Gastrointestinal Verified 07/30/23 05:47 Upset Medications Home Medications Medication Instructions Recorded Confirmed Last Taken [id number]-cmgrvzxhxcnxz-otevfipn 1 - 2 tab PO DAILY PRN Migraine 06/13/19 03/14/24 04/08/21 50 mg-325 mg-40 mg tablet Headache #30 tabs lisinopril 10 mg tablet 10 mg PO HS 06/13/19 03/14/24 07/29/23 18:00 pantoprazole 40 mg tablet,delayed 40 mg PO QAM 06/13/19 03/14/24 03/14/24 release verapamil 240 mg tablet,extended 240 mg PO QAM #30 tabs 06/13/19 03/14/24 03/14/24 release pravastatin 40 mg tablet 40 mg PO HS 09/19/20 03/14/24 07/29/23 04:00 gabapentin 600 mg tablet 1,200 mg PO HS 10/02/20 03/14/24 07/22/23 18:00 gabapentin 600 mg tablet 600 mg PO QAM 10/02/20 03/14/24 03/14/24 hydrocodone 5 mg-acetaminophen 325 1 tab PO DAILY PRN Pain 01/11/21 03/14/24 07/29/23 08:00 mg tablet multivitamin 1 tab PO QAM 04/23/21 03/14/24 03/14/24 metformin 850 mg tablet 850 mg PO QPM 08/01/21 03/14/24 07/29/23 18:00 paroxetine HCl 10 mg tablet 10 mg PO QAM 11/18/22 03/14/24 03/14/24 Medical Marijuana 1 dose PO UD PRN Pain 06/03/23 03/14/24 07/29/23 18:00 lidocaine-prilocaine 2.5 %-2.5 % 1 applic topical UD PRN Other 03/14/24 03/14/24 Unknown topical cream ondansetron HCl 4 mg tablet 4 mg PO BID PRN n/v 03/14/24 03/14/24 Unknown Active Medications Generic Name Dose Route Start Last Admin Trade Name Freq PRN Reason Stop Dose Admin Acetaminophen 650 mg 03/14/24 20:34 03/15/24 15:37 Acetaminophen 325 Mg Tab PO 04/13/24 20:33 650 mg Q6H PRN Administration pain(1-4),headache,fever Hydrocodone Bitart/Acetaminophen 1 tab 03/15/24 15:39 03/16/24 07:38 Hydrocodone/Acetamophen 5/325mg Tab PO 03/29/24 15:38 1 tab Q6H PRN Administration Pain Gabapentin 1,200 mg 03/14/24 22:19 03/16/24 20:37 Gabapentin 600 Mg Tab PO 04/13/24 22:18 1,200 mg HS GER Administration Gabapentin 600 mg 03/15/24 09:00 03/16/24 07:37 Gabapentin 600 Mg Tab PO 04/14/24 08:59 600 mg QAM GER Administration Ceftriaxone Sodium 2,000 mg in 50 mls @ 100 mls/hr 03/17/24 08:00 03/17/24 09:44 Rocephin IV 03/31/24 07:59 100 mls/hr Q24H GER Administration Insulin Aspart 0 units 03/15/24 07:30 03/17/24 09:11 Insulin Aspart Per Unit Charge SC 04/14/24 07:29 Not Given ACHS GER Morphine Sulfate 2 mg 03/14/24 20:32 03/17/24 07:28 Morphine Sulfate 2 Mg/Ml Carp IV 03/28/24 20:31 2 mg Q4H PRN Administration Pain(5+) Ondansetron HCl 4 mg 03/14/24 20:47 03/14/24 21:27 Ondansetron Inj 2 Mg/Ml 2 Ml Vial IV 04/13/24 20:46 4 mg Q4H PRN Administration Nausea Pantoprazole Sodium 40 mg 03/15/24 09:00 03/16/24 07:37 Pantoprazole 40 Mg Tab PO 04/14/24 08:59 40 mg QAM GER Administration Paroxetine HCl 10 mg 03/15/24 09:00 03/16/24 07:37 Paroxetine Hcl 10 Mg Tab PO 04/14/24 08:59 10 mg QAM GER Administration Pravastatin Sodium 40 mg 03/14/24 22:19 03/16/24 20:37 Pravastatin Sod 40 Mg Tab PO 04/13/24 22:18 40 mg HS GER Administration Verapamil HCl 240 mg 03/15/24 09:00 03/16/24 07:37 Verapamil Hcl 240 Mg Tabcr PO 04/14/24 08:59 240 mg QAM GER Administration Past Medical History Medical History (Updated 03/17/24 @ 10:05 by Lawrence Richard MD) Migraine headache hx B-cell lymphoma Enlarged lymph node in neck has had MRI screening History of fractured vertebra L4, 01/22/2022, no sx required Depression Back problem History of bronchitis none since 2019 or 2020 History of anemia iron infusion and B12 injection set for 07/29/23 [facility] Medical marijuana use 3-4x per week Degenerative disc disease Osteoarthritis Osteopenia Fatty liver Diverticulosis hx IBS (irritable bowel syndrome) History of endometrial cancer LASHON-BSO TMJ (dislocation of temporomandibular joint) clicking, no locking Sleep apnea not currently using CPAP>has lost over 100 pounds in last 3 years, has not had a repeated sleep study Past Family History Family History Father Dyslipidemia Hx of CABG Hypertension Myocardial infarction Heart disease Stroke Uncle Colorectal cancer Diabetes Heart disease Hypertension Aunt Osteoporosis Breast cancer Mother Ovarian cancer Uterine cancer Cancer Brother Diabetes Heart disease Hypertension Other No family history of adverse response to anesthesia Past Surgical History Surgical History Port-A-Cath in place (07/30/23) Insertion Access Port Left Subclavian Vein(Left) - Gerson Oconnell MD, FACS Hx of biopsy (06/11/23) Laparoscopic Biopsy of the Right excisional Iliac Node (Right) - Gerson Oconnell MD, FACS History of lymph node excision (01/22/21) Robotic-assisted laparoscopic right pelvic lymph node dissection, possible right sided groin lymph node dissection [place]. [place] [facility] [place] post epidural steroid injection History of anesthesia reaction woke up during foot surgery History of toe surgery x 2 History of uvulopalatopharyngoplasty History of tonsillectomy History of esophagogastroduodenoscopy (EGD) History of colonoscopy History of total abdominal hysterectomy and bilateral salpingo-oophorectomy H/O oral surgery Social History Smoking Status: Former smoker Do You Dip or Chew Tobacco: No Hx Alcohol Use: No alcohol intake frequency: holidays/special occasions only Hx Substance Use: Yes substance use type: marijuana Substance Use Type Other:: medical marijuana Last Used Substance: Days (ago) Last Used Substance Other:: capsules and tinctures, 3-4x week Physical Exam Vital Signs Last Vital Signs Temp 37.1 C 03/17/24 07:23 Pulse 76 03/17/24 07:23 Resp 16 03/17/24 07:23 BP 114/78 03/17/24 07:23 Pulse Ox 93 03/17/24 07:23 O2 Del Method Room Air 03/17/24 07:23 Testing Laboratory Results 03/17/24 07:31 03/17/24 07:31 PT 10.6 Seconds (9.0-12.0) 03/17/24 07:31 INR 1.0 (0.9-1.1) 03/17/24 07:31 Urine Color Yellow 03/14/24 17:07 Urine Appearance Clear (Clear) 03/14/24 17:07 Urine pH 7.5 (4.5-7.5) 03/14/24 17:07 Ur Specific Dille 1.008 (1.000-1.030) 03/14/24 17:07 Urine Protein Trace (Negative) H 03/14/24 17:07 Urine Glucose (UA) Negative (Negative) 03/14/24 17:07 Urine Ketones Trace (Negative) H 03/14/24 17:07 Urine Nitrite Negative (Negative) 03/14/24 17:07 Ur Leukocyte Esterase 3+ (Negative) H 03/14/24 17:07 Urine WBC (Auto) >50 /hpf (0-5) H 03/14/24 17:07 Urine RBC (Auto) 0-2 /hpf (0-2) 03/14/24 17:07 U Hyaline Cast (Auto) 0-2 /lpf (0-2) 03/14/24 17:07 U Epithel Cells (Auto) 0-2 /hpf (0-2) 03/14/24 17:07 Urine Bacteria (Auto) 2+ (None Seen) H 03/14/24 17:07 03/14/24 18:48 Aerobic Blood Culture - Final Blood Escherichia coli Anaerobic Blood Culture - Final Escherichia coli 03/14/24 17:02 Aerobic Blood Culture - Preliminary Blood No growth in Aerobic bottle after 48 hours. Anaerobic Blood Culture - Preliminary No growth in Anaerobic bottle after 48 hours. 03/15/24 16:45 Aerobic Blood Culture - Preliminary Blood No growth in Aerobic bottle after 24 hours. Anaerobic Blood Culture - Preliminary No growth in Anaerobic bottle after 24 hours. 03/15/24 16:57 Aerobic Blood Culture - Preliminary Blood No growth in Aerobic bottle after 24 hours. Anaerobic Blood Culture - Preliminary No growth in Anaerobic bottle after 24 hours. 03/14/24 17:07 Urine Culture - Final Urine,Clean Catch Escherichia coli 03/17/24 03/17/24 08:16 06:07 POC Glucose 97 89 Echocardiogram Date: 07/23/23 LV Function: normal Valvular Disease: + no significant valvular disease
[2024-03-17] MEDS ORDERED: MIDAZOLAM HCL 1 MG/ML 2ML VIAL ONE (12:09)
[2024-03-17] MEDS ORDERED: LIDOCAINE 2% 2 ML VIAL/AMP(20MG/ML) INFIL ONE (12:09)
[2024-03-17] MEDS ORDERED: ONDANSETRON INJ 2 MG/ML 2 ML VIAL ONE (12:09)
[2024-03-17] MEDS ORDERED: PROPOFOL IV EMULSION 10 MG/ML 20 ML VIAL IV ONE (12:09)
[2024-03-17] MEDS ORDERED: fentaNYL citrate PF 100 MCG/2 ML VIAL ONE (12:09)
[2024-03-17] MEDS ORDERED: ATROPINE SULFATE 0.1 MG/ML 10ML SYR IV PRN (12:21)
[2024-03-17] MEDS ORDERED: ONDANSETRON INJ 2 MG/ML 2 ML VIAL IV PRN (12:21)
[2024-03-17] MEDS ORDERED: fentaNYL citrate PF 100 MCG/2 ML VIAL IV PRN (12:21)
[2024-03-17] MEDS: LACTATED RINGER'S 1,000 ML IV SCH (12:22)
--- NOTE | 2024-03-17 12:36 | Infectious Disease Progress Nt ---
Date of Service March 17, 2024 Assessment & Plan (1) E coli bacteremia: (2) Pyelonephritis: (3) B-cell lymphoma: (4) Diabetes: Plan 63yo F with h/o DLBCL s/p chemo completed Oct 2023, now being monitored, chest port still in place, T2DM, HTN who presented on 03/14 with fever, suprapubic and right flank pain. She reported having pain and nausea x 1 week which progressed to right flank pain. On day of admission, she had a temp to 101.6 at home along with 1 episode of nonbloody emesis. She also reported urinary frequency and pressure. Here she has been febrile. BP stable. WBC 2.80, platelet 90s, Cr wnl, AST/ALT wnl. Lipase 17, PCT 0.18. UA with > 50 WBC. CTAP with IV contrast showed findings c/w cystitis, bilateral pyelitis and right pyelonephritis, mild bl hydroureteronephrosis; extensive sigmoid diverticulosis, no e/o acute diverticulitis. CXR negative. She was started on cefepime. BCx and UCx with E coli. ID consulted 03/15. Seen by urology and no intervention. Port planned to be removed today. Aspen changed cefepime to CTX based on sensitivities. Port to be removed today. Will plan of 14 days of antibiotics starting 03/15, which can be completed with Bactrim. # E coli bacteremia # Right pyelonephritis, bl pyelitis, and cystitis 2/2 E coli # bl hydroureteronephrosis # h/o DLBCL s/p chemo # Chest port removal today - Aspen stopped cefepime and started CTX 2g IV daily - f/u port removal - plan to treat for 14 days of abx, which can be done with Bactrim 2DS PO twice daily (start 03/15, end through 03/28) Belkis Underwood MD [facility], Division of Infectious Diseases IDConnect: [phone] Admission and Anticipated Discharge Date Admission Date: March 14, 2024 Subjective This patient recommendation is based on a telemedicine consult request which was completed asynchronously through chart review and information provided by the primary physician. The patient was not seen or examined today. The evaluation is consultative in nature and all patient care and treatment decisions can either be accepted or rejected by the patient's primary hospital-based treating physician using their own independent medical judgment for their patient. Time Spent Reviewing Chart: 31+ minutes Results & Data Vital Signs (Past 12 Hours) Vital Signs Temp Pulse Pulse Resp BP BP Pulse Ox 03/17/24 12:07 37.1 C 70 70 18 145/72 H 98 03/17/24 10:56 37.0 C 71 16 147/79 H 99 03/17/24 07:23 37.1 C 76 16 114/78 93 03/17/24 03:08 36.9 C 82 16 121/79 97 O2 Del Method 03/17/24 12:07 Room Air 03/17/24 10:56 Room Air 03/17/24 07:23 Room Air 03/17/24 03:08 Room Air Laboratory Results Labs reviewed. Diagnostic Findings Imaging reviewed.
--- NOTE | 2024-03-17 13:20 | Post Operative Brief Note ---
PG Immediate Post Op with CF Date of Surgery March 17, 2024 Pre & Post Diagnosis Pre-op diagnosis: E. coli bacteremia Post-op diagnosis: same I identified the patient and participated in the time-out.: Yes Procedure Operation Date: 03/17/24 09:40 Port removal Surgeon Daniel Medeiros DO Supervisor Inspection Department Debby Boland PA-C Estimated Blood Loss 5 Findings See Below mediport catheter complex intact Anesthesia Type MAC Complications none Disposition Disposition: Recovery Room
[2024-03-17] MEDS: BUPIVACAINE/EPINEPHRINE 0.25% 1:200,000 30 ML VIAL ONE (13:21)
--- NOTE | 2024-03-17 13:24 | Operative Report ---
PG Post Operative Report Pre & Post Diagnosis Preoop diagnosis: E. coli bacteremia Post-op diagnosis: same I identified the patient and participated in the time-out.: Yes Procedure Operation Date: 03/17/24 09:40 Port Removal Surgeon Dnaiel Medeiros, Paper Cutting Machine Operator Debby Boland PA-C Estimated Blood Loss 5 Findings See Below mediport catheter complex intact Specimens Mediport catheter complex intact and sent for culture Drains None Anesthesia Type MAC Complications none Disposition Disposition: Recovery Room Indications 63 yo female with E. Coli bacteremia with port in place Description of Procedure The patient was brought to the OR and placed in the supine position. At this time she underwent MAC anesthesia without problem. Her left chest was prepped and draped in the usual sterile fashion. She was given appropriate pre- operative antibiotics. Timeout was called, procedure was verified as Mediport removal. Surgical, anesthesia and nursing teams agreed and the procedure was begun. Patient was then placed in Trendelenburg position. After injection of 0.25% Marcaine with epinephrine, a transverse incision directly through her old incision was made using a #15 blade scalpel. This was carried down directly to the port using electrocautery. At this time the catheter was delivered out of the incision. The sutures on the mediport itself were then cut and the entire mediport/catheter complex removed and passed off as specimen. At this time the incision was irrigated until clear. Hemostasis was achieved using electrocautery. Hemostasis was complete. At this time the capsule was closed using 3-0 Vicryl. Deep dermal layer of skin was closed using 3-0 Vicryl and the skin was closed using 4-0 Monocryl. Sterile dressing was applied. All needle and sponge counts were correct x 2. The patient was then awakened from anesthesia and transported to PACU in stable condition. The physician assistant surveyor was present and scrubbed for the entire procedure. She was essential in positioning, prepping and draping the patient, retraction and exposure, closure of the incision and placement of the dressing. I attest to the content of the Intraoperative Record and any orders documented therein. Any exceptions are noted below.
--- NOTE | 2024-03-17 13:25 | Discharge Summary ---
Date of Service March 17, 2024 Admission HPI Per Admitting Provider Fatemeh is a 63-year-old female with a past medical history significant for diffuse large B-cell lymphoma, endometrial cancer, hypertension, diabetes mellitus type 2 who presented to [facility] ED on 03/14/2024 with complaints of fever, nausea, and hyperlipidemia. She was noted to have a temperature of 37.2 C on arrival, heart rate of 97, but was otherwise stable. Labs were significant for a leukopenia of 2.8, platelet count of 92 (has been 100 as of November of this year), lactate within normal limits, Pro-Zoran normal limits, and he would like UA with 3+ leukocyte esterase, greater than 50 WBC, and 2+ bacteria. CT of the abdomen/pelvis with IV contrast was read as findings consistent with cystitis, bilateral pyelitis and right pyelonephritis. No renal abscess. Mild bilateral hydroureteronephrosis. Extensive sigmoid diverticulosis. No evidence for acute diverticulitis. No bowel obstruction. Prior to admission the patient was given a dose of cefepime, 1 L NSS, 25 mcg of fentanyl, and 4 mg IV zofran. Patient was sitting in bed in no acute distress at the time of exam. States that she started develop suprapubic abdominal pain, nausea approximately 1 week ago. Symptoms progressed to include right flank pain. Earlier today she had a fever of 101.6 Fahrenheit and 1 episode of nonbloody emesis. She confirms that she completed chemotherapy for her B-cell lymphoma and October of this year, she is currently being monitored. She still has her Mediport in place as she does not want removed until she can confirm she no longer needs chemotherapy. Denies recent chest pain, shortness of breath, cough, hematuria, diarrhea, melena, lower extremity swelling, and recent trauma. Compared to arrival she feels slightly improved but not back to her baseline. We discussed CODE STATUS, she is a full code and would want her son to make medical decisions for her if she cannot make them herself. Please refer to Dr. Tamayo's attestation for any changes to the treatment plan Principal Diagnosis sepsis Discharge Exam General: In no acute distress, stated age, chronically ill appearing but non- toxic HEENT: Normocephalic, atraumatic Chest/Pulm: No respiratory distress, symmetrical chest expansion, clear breath sounds throughout Cardiac: RRR, no murmurs noted Abdomen: normoactive bowel sounds, soft, mildly tender in the suprapubic region but otherwise non-tender Extremities: Radial, dorsalis pedis, and posterior tibial pulses are intact and symmetrical, no edema noted in the BL LE's Negative CVA tenderness Skin: Warm, dry, no rashes , lesions, or scars noted Neuro: Alert and oriented to person, place, month, year, and president, no f ocal defects, no tremors noted Psych: No acute distress, calm and cooperative during the exam Discharge Data Allergies Allergy/AdvReac Type Severity Reaction Status Date / Time doxycycline Allergy Intermediate Hives Verified 03/17/24 12:16 niacin Allergy Intermediate EXTREMELY Verified 03/17/24 12:16 BRIGHT RED AND BURNY SKIN gluten AdvReac Mild Gastrointestinal Verified 03/17/24 12:16 Upset Consultations 03/14/24 19:39 ED Decision to Admit Stat 03/15/24 15:42 Consult Infectious Diseases Routine 03/16/24 08:41 Consult Urology Routine 03/16/24 15:09 Consult General Surgery Routine Procedures Performed Operation Date: 03/17/24 09:40 Actual Procedures p Mediport Removal Left Chest(Left) - Daniel Medeiros DO Ordered Studies 03/14/24 15:15 CT abd pelvis IV con only Stat Hospital Course (1) Sepsis: Admit to med telemetry likely secondary to complicated UTI Patient met sepsis criteria on arrival with leukopenia of 2.8, heart rate of 97, and source being her urine/pyelonephritis Lactate was within normal limits Blood cultures showed gram negative bacteremia. Consulted ID: recommended antibiotics -Concern given gram negative bacteremia impaging showing possible hydronephrosis. consulted urology: no intervention required -removed A port as concern that this could be contaminated, especially given recurrent UTI. 14 days of abx, which can be done with Bactrim 2DS PO twice daily (start 03/15, end through 03/28) - will continue cefepime. (2) Pyelonephritis: Possible chemotherapy induced pancytopenia Noted on CT of abdomen pelvis with IV contrast CT reviewed also noted bilateral pyelitis and findings consistent with cystitis but was negative for signs of renal abscess Noted to have mild bilateral hydroureteronephrosis Renal function is currently stable, (3) B-cell lymphoma: Patient completed chemotherapy in October of this year Noted to be leukopenic today along with platelet count of 92 and lymphocyte count of 0.28 No signs of bleeding (4) Nausea: Nausea is likely related to her current infection resolved (5) Diabetes: Hold metformin for now Monitor BSG ACHS, goal is [id number] Will start with conservative regimen with CF of 50 and CR of 15 ACHS Adjust regimen as needed (6) Hypertension: Currently stable Total Time Total Time Spent Total Time Spent (In Minutes): 32 Discharge Plan Discharge Items Patient Disposition: Home - Self-Care Reason For Visit: SEPSIS, PYELONEPHRITIS Discharge Diagnosis: sepsis Activity: Resume your previous activity Non-emergency contact: Primary Care Provider Call non-emergency contact if: you have any medication questions Follow-up/Referrals: Daniel Medeiros DO [Physician] - (call to schedule follow up in clinic within 2 weeks ) Elena Berry DO [Primary Care Provider] - Diet: Carb Consistent or DM2 and Heart Healthy Addtl Attending Provider Instructions: You were found to have a urinary tract infection with bacteria in your blood stream. Given recurrent urinary tract infection, and bacteria in your blood stream. We recommended to remove your a-port as this could be contaminanted. You will continue on antibiotics for 22 more doses (11 days and a half). Next dose will be tomorrow morning. It will be 2 tablets twice a day. Pending Studies at Discharge: No Stand-Alone Forms: My [facility] [employer], Smoking Cessation Medications and DC Order Prescriptions: New sulfamethoxazole-trimethoprim [Bactrim DS] 800-160 mg tablet 2 tab PO BID Qty: 44 0RF Continued gabapentin 600 mg tablet 1,200 mg PO HS paroxetine HCl 10 mg tablet 10 mg PO QAM [id number]-wghojfnobspqr-dumc 50-325-40 mg tablet 1 - 2 tab PO DAILY PRN (Reason: Migraine Headache) Qty: 30 lisinopril 10 mg tablet 10 mg PO HS pantoprazole 40 mg tablet,delayed release (DR/EC) 40 mg PO QAM verapamil 240 mg tablet extended release 240 mg PO QAM Qty: 30 gabapentin 600 mg tablet 600 mg PO QAM metformin 850 mg tablet 850 mg PO QPM Hold Instructions: Resume on 06/13/23. pravastatin 40 mg tablet 40 mg PO HS Medical Marijuana 1 dose PO UD PRN (Reason: Pain) Patient Comments: 3-4x per week Rx Instructions: capsules or tinctures hydrocodone-acetaminophen 5-325 mg tablet 1 tab PO DAILY PRN (Reason: Pain) Rx Instructions: Patient was taking everyday, now is taking PRN multivitamin Tablet 1 tab PO QAM ondansetron HCl 4 mg tablet 4 mg PO BID PRN (Reason: n/v) lidocaine-prilocaine 2.5-2.5 % cream 1 applic topical UD PRN (Reason: Other) Discharge Orders: Discharge Order (Routine); Ordered 03/17/24 Ordered By: Pernell Montes Admission Data Admit Date/Time: 03/14/24 20:18 Attending Provider: Pernell Montes Admit Provider: Wil Tamayo Primary Care Provider: Elena Berry Other Providers: Wil Tamayo; Diane Giles; Susana Neal; Belkis Underwood; Masha Choudhary; Libby Argueta; Yeny Villegas; Brian Henderson; Michoacano Dash; Thor Jackson; Nataliia Pantoja; Edgardo Pearce; Lynn Barrios; Beverley Ortez; Zaid Goff; Elena Hernandez; Maynor Valdivia; Chandni Lucas; Yury Lopez; Syeda Pereira; Vance Abebe; Gerson Oconnell; Tony Pantoja; Michoacano Toro; Debby Boland; Daniel Medeiros; Gutierrez Nunez; Sung Silva; Zhou Moya Other Interventions: Discharge Summary Assessment (RN) Last Done: 03/17/24 16:07 Coding Level of Care Code 11011 INP/OBS DISCH >30 MIN Diagnoses Sepsis A41.9 Pyelonephritis N12 B-cell lymphoma C85.10 Nausea R11.0 Diabetes E11.9 Hypertension I10
--- NOTE | 2024-03-17 14:30 | Anesthesiology Progress Note ---
Date of Service March 17, 2024 Anesthesia Post Procedure Vital Signs Vital Signs: Temp Pulse Pulse Pulse Resp BP BP 03/17/24 13:45 36.2 C L 60 13 122/62 03/17/24 13:40 117/52 L 03/17/24 13:35 62 12 104/62 03/17/24 13:28 36.1 C L 70 14 106/60 03/17/24 12:07 37.1 C 70 70 18 145/72 H 03/17/24 10:56 37.0 C 71 16 147/79 H 03/17/24 07:23 37.1 C 76 16 114/78 03/17/24 03:08 36.9 C 82 16 121/79 03/16/24 22:53 37.0 C 88 16 146/79 H 03/16/24 22:00 70 03/16/24 19:30 37.0 C 89 16 120/77 03/16/24 15:28 37.0 C 70 18 109/72 Pulse Ox O2 Del Method 03/17/24 13:45 99 Room Air 03/17/24 13:40 03/17/24 13:35 98 Room Air 03/17/24 13:28 99 Room Air 03/17/24 12:07 98 Room Air 03/17/24 10:56 99 Room Air 03/17/24 07:23 93 Room Air 03/17/24 03:08 97 Room Air 03/16/24 22:53 97 Room Air 03/16/24 22:00 03/16/24 19:30 96 Room Air 03/16/24 15:28 96 Room Air Pain Intensity Bilateral Flank: Pain Intensity: 6 Transfer of Care Handoff Completed per policy Notes Mental Status: alert / awake / arousable Patient Amnestic to Procedure: Yes Nausea / Vomiting: adequately controlled Pain: adequately controlled Airway Patency, RR, SpO2: stable & adequate BP & HR: stable & adequate Hydration State: stable & adequate Anesthetic Complications: no major complications apparent
== END 2024-03-17 16:34 | disposition home or self-care (01) | DRG 871 ==
LOC: ED 14:45 → 2W 20:18 → SUATTDRO 20:18 → 2W 21:35
DX: Z79.899 Other long term (current) drug therapy; D61.810 Antineoplastic chemotherapy induced pancytopenia; K31.84 Gastroparesis; Z87.891 Personal history of nicotine dependence; E78.5 Hyperlipidemia, unspecified; N13.6 Pyonephrosis; C83.30 Diffuse large B-cell lymphoma, unspecified site; A41.51 Sepsis due to Escherichia coli [E. coli]; T45.1X5A Adverse effect of antineoplastic and immunosuppressive drugs, initial encounter; E11.43 Type 2 diabetes mellitus with diabetic autonomic (poly)neuropathy; I10 Essential (primary) hypertension; Z88.1 Allergy status to other antibiotic agents; K21.9 Gastro-esophageal reflux disease without esophagitis; Z79.84 Long term (current) use of oral hypoglycemic drugs

== ENCOUNTER 2024-03-18 21:57 | Inpatient (IN) ==
[2024-03-18 23:07] LABS: Alanine Aminotransferase 18 U/L (7-52); Albumin Globulin Ratio 1.4 (0.9-2); Alkaline Phosphatase 97 U/L (34-104); Anion Gap 11 (3-11); Aspartate Aminotransferase 31 U/L (13-39); BUN Creatinine Ratio 17.7 (10-20); Bilirubin,Total 0.5 mg/dl (0.2-1.0); Blood Urea Nitrogen 11 mg/dl (6-23); Carbon Dioxide 24 mmol/L (21-32); Chloride 97 mmol/L (98-107); Creatinine Clr Calc Pharmacy 75.4 ml/min; Est GFR (African American) 112.8 ml/min; Est GFR (Non-African American) 97.3 ml/min; Globulin 2.9 gm/dl (2.5-4.0); Glucose 109 mg/dl (70-99(Fasting)); Potassium 3.9 mmol/L (3.5-5.1); Sodium 132 mmol/L (136-145); Total Protein 6.9 gm/dl (6.0-8.3)
[2024-03-18] MEDS: ACETAMINOPHEN 1,000 MG/100 ML VIAL IV STA (23:17)
[2024-03-18] MEDS: FAMOTIDINE 20MG IV PUSH 20 MG/5 ML SYR IV STA (23:17)
[2024-03-18] MEDS: ONDANSETRON INJ 2 MG/ML 2 ML VIAL IV STA (23:17)
[2024-03-18] MEDS: SODIUM CHLORIDE 0.9% 500 ML IV SCH (23:22)
--- NOTE | 2024-03-18 23:49 | Emergency Department Note ---
History of Present Illness General Chief complaint: Hyperglycemia Stated complaint: PORT REMOVED YSTRDAY, UTI, HYPERGLYCEMIA, VOMITING Time Seen by Provider: 03/18/24 22:37 History of Present Illness Maximum Pain Intensity: 6 This 63-year-old female that was recently admitted for sepsis from UTI was discharged yesterday and placed on Bactrim presents to the ER for nausea vomiting and abdominal pain today. She had 1 dose of the Bactrim. Patient states she does not feel well. Patient denies chest pain, dyspnea, fever, chills, cough, congestion. She states she does not feel nearly as bad as she did when she got admitted for sepsis. Home Medications Medication Instructions Recorded Confirmed Type pammqagjbi-qikejypmbkdxp-lmadjvcy 1 - 2 tab PO DAILY PRN Migraine 06/13/19 03/19/24 History 50 mg-325 mg-40 mg tablet Headache #30 tabs lisinopril 10 mg tablet 10 mg PO HS 06/13/19 03/19/24 History pantoprazole 40 mg tablet,delayed 40 mg PO QAM 06/13/19 03/19/24 History release verapamil 240 mg tablet,extended 240 mg PO QAM #30 tabs 06/13/19 03/19/24 History release pravastatin 40 mg tablet 40 mg PO HS 09/19/20 03/19/24 History gabapentin 600 mg tablet 1,200 mg PO HS 10/02/20 03/19/24 History gabapentin 600 mg tablet 600 mg PO QAM 10/02/20 03/19/24 History hydrocodone 5 mg-acetaminophen 325 1 tab PO DAILY PRN Pain 01/11/21 03/19/24 History mg tablet multivitamin 1 tab PO QAM 04/23/21 03/19/24 History metformin 850 mg tablet 850 mg PO QPM 08/01/21 03/19/24 History paroxetine HCl 10 mg tablet 10 mg PO QAM 11/18/22 03/19/24 History Medical Marijuana 1 dose PO UD PRN Pain 06/03/23 03/19/24 History lidocaine-prilocaine 2.5 %-2.5 % 1 applic topical UD PRN Other 03/14/24 03/19/24 History topical cream ondansetron HCl 4 mg tablet 4 mg PO BID PRN n/v 03/14/24 03/19/24 History sulfamethoxazole 800 2 tab PO BID #44 tabs 03/17/24 03/19/24 Rx mg-trimethoprim 160 mg tablet (Bactrim DS) Allergies Allergy/AdvReac Type Severity Reaction Status Date / Time doxycycline Allergy Intermediate Hives Verified 03/17/24 12:16 niacin Allergy Intermediate EXTREMELY Verified 03/17/24 12:16 BRIGHT RED AND BURNY SKIN gluten AdvReac Mild Gastrointestinal Verified 03/17/24 12:16 Upset Past Med/Surg History Problem List (Updated 03/19/24 @ 02:29 by Lissy Ross PA-C) Type 2 FL (myocardial infarction) (Acute) Abdominal pain, acute (Acute) Nausea & vomiting (Acute) Acute UTI (Acute) Low grade fever pt stated she has been having a low grade temperature/fever since december 2022, on a daily basis since the discovery of the large lymph node in her neck. Hydronephrosis E coli bacteremia Sepsis Nausea (Acute) Pyelonephritis (Acute) Diabetes (Acute) NIDDM EBV (-) lymphoma of intra-abdominal site Preop testing TGA (transient global amnesia) Arthritis Lymphadenopathy Nipple problem Lower back pain (Acute) Central stenosis of spinal canal (Acute) Compression fracture of L4 vertebra (Acute) Weight loss Early satiety Encounter for pre-operative examination Amnesia Lymphadenopathy Moderate obstructive sleep apnea Chronic neck pain (Acute) Irritable bowel syndrome (Acute) Morbid obesity (Acute) Vitamin D deficiency (Acute) Nocturnal hypoxemia Hx of cancer of uterus MAGO positive has not had repeated since 12/2022 Coccydynia Spinal stenosis Fibromyalgia (Acute) GERD without esophagitis (Acute) Gastroparesis (Acute) Hyperlipemia (Acute) Hypertension (Acute) Restless leg syndrome (Acute) Medical History Migraine headache hx B-cell lymphoma Enlarged lymph node in neck has had MRI screening History of fractured vertebra L4, 01/22/2022, no sx required Depression Back problem History of bronchitis none since 2019 or 2020 History of anemia iron infusion and B12 injection set for 07/29/23 at [facility] Medical marijuana use 3-4x per week Degenerative disc disease Osteoarthritis Osteopenia Fatty liver Diverticulosis hx IBS (irritable bowel syndrome) History of endometrial cancer LASHON-BSO TMJ (dislocation of temporomandibular joint) clicking, no locking Sleep apnea not currently using CPAP>has lost over 100 pounds in last 3 years, has not had a repeated sleep study Surgical History History of removal of Port-a-Cath Port Removal Dr. Medeiros 03/17/2024 Port-A-Cath in place (07/30/23) Insertion Access Port Left Subclavian Vein(Left) - Gerson Oconnell MD, FACS Hx of biopsy (06/11/23) Laparoscopic Biopsy of the Right excisional Iliac Node (Right) - Gerson Oconnell MD, FACS History of lymph node excision (01/22/21) Robotic-assisted laparoscopic right pelvic lymph node dissection, possible right sided groin lymph node dissection Dr. Tyrese Roper, @ [facility] [place] Status post epidural steroid injection History of anesthesia reaction woke up during foot surgery History of toe surgery x 2 History of uvulopalatopharyngoplasty History of tonsillectomy History of esophagogastroduodenoscopy (EGD) History of colonoscopy History of total abdominal hysterectomy and bilateral salpingo-oophorectomy H/O oral surgery Family History Father Dyslipidemia Hx of CABG Hypertension Myocardial infarction Heart disease Stroke Uncle Colorectal cancer Diabetes Heart disease Hypertension Aunt Osteoporosis Breast cancer Mother Ovarian cancer Uterine cancer Cancer Brother Diabetes Heart disease Hypertension Other No family history of adverse response to anesthesia Social History Smoking Status: Former smoker Tobacco Type: Cigarettes Age Quit Using Tobacco: 47; Second Hand Exposure: No; Do You Dip or Chew Tobacco: No; Hx Alcohol Use: No Hx Substance Use: Yes Last Used Substance: Days (ago) Last Used Substance Other:: capsules and tinctures, 3-4x week Substance Use Type Other:: medical marijuana Preferred Language: Turkmen Communication Ability: Effective Visual Impairment: Limited Consulting Utility Forester Required: No Beliefs That Will Affect Care: None marital status: Current Living Situation: Alone current occupational status: employed current occupation: [employer]OR How many Children do You have: 1 Feels Safe at Home: Yes Diet: diabetic during the past year weight has: remained stable Assistive Devices: Walker and Other Review of Systems A total of 10 systems reviewed and were otherwise negative Physical Exam Vital Signs Vital Signs - 24 hr 03/18/24 22:06 03/18/24 23:21 03/18/24 23:37 Temperature 36.8 C Temperature Source Temporal Artery Scan Pulse Rate 77 71 Pulse Rate [Apical] 68 Pulse Rate from SpO2 Sensor Pulse Rhythm [Apical] Regular Pulse Strength [Apical] Normal Respiratory Rate 18 16 Respiratory Effort / Characteristics Non-Labored Non-Labored Spontaneous Respiratory Depth Normal Normal Respiratory Pattern Regular Regular Blood Pressure 132/74 Blood Pressure [Left Arm] 143/82 H Blood Pressure Mean 93 Blood Pressure Mean [Left Arm] 102 Blood Pressure Position [Left Arm] Sitting Pulse Oximetry 97 100 Oxygen Delivery Method Room Air Room Air Sepsis Recent Fever Within 48 Hours No Sepsis New/Unexplained Change in Mental Status N/A Sepsis Action Taken by Nursing No Action Required 03/19/24 01:09 03/19/24 02:05 Temperature Temperature Source Pulse Rate 83 83 Pulse Rate [Apical] Pulse Rate from SpO2 Sensor 82 84 Pulse Rhythm [Apical] Pulse Strength [Apical] Respiratory Rate 17 17 Respiratory Effort / Characteristics Respiratory Depth Respiratory Pattern Blood Pressure 127/66 112/71 Blood Pressure [Left Arm] Blood Pressure Mean 86 84 Blood Pressure Mean [Left Arm] Blood Pressure Position [Left Arm] Pulse Oximetry 99 98 Oxygen Delivery Method Room Air Room Air Sepsis Recent Fever Within 48 Hours Sepsis New/Unexplained Change in Mental Status Sepsis Action Taken by Nursing VITALS: Vitals are noted on the nurse's note and reviewed by myself. Vital signs stable. GENERAL: Pleasant female with family present, in no acute distress, nondiaphoretic, well-developed well-nourished. SKIN: Capillary reflex less than 2 seconds. HEENT: Normocephalic. PERRLA. EOMI. Nares patent. Mucous membranes moist. Neck is supple without nuchal rigidity. HEART: Regular rate and rhythm LUNGS: Clear to auscultation bilaterally without wheezes, rales or rhonchi. No retractions or accessory muscle use. ABDOMEN: Positive bowel sounds x 4. Normal tympanic percussion. Soft, tender mid abdomen, without masses or organomegaly. Crawford sign negative. No guarding or rebound tenderness. no CVA tenderness MUSCULOSKELETAL: No gross musculoskeletal defects. NEURO: Patient was alert and oriented to person place and time. No focal neurological deficits. Course Administered Medications Discontinued Medications Sodium Chloride (Nss) 500 mls @ 999 mls/hr IV .Q31M GER Stop: 03/18/24 23:30 Last Infusion: 03/19/24 00:11 Dose: Infused Documented By: Admin: 03/18/24 23:22 Dose: 999 mls/hr Documented By: GER Ceftriaxone Sodium (Rocephin) 2,000 mg in 50 mls @ 100 mls/hr IV NOW STA Stop: 03/18/24 23:16 Last Infusion: 03/19/24 00:42 Dose: Infused Documented By: Admin: 03/18/24 23:56 Dose: 100 mls/hr Documented By: GER Famotidine (Pepcid 20mg Iv Push) 20 mg in 5 mls @ 2.5 mls/min IV NOW STA Stop: 03/18/24 22:48 Last Admin: 03/18/24 23:17 Dose: 2.5 mls/min Documented By: GER Acetaminophen (Ofirmev) 1,000 mg in 100 mls @ 400 mls/hr IV NOW STA Stop: 03/18/24 23:01 Last Infusion: 03/18/24 23:39 Dose: Infused Documented By: Admin: 03/18/24 23:17 Dose: 400 mls/hr Documented By: GER Sodium Chloride (Nss) 500 mls @ 999 mls/hr IV .Q31M ONE Stop: 03/19/24 02:20 Last Admin: 03/19/24 02:13 Dose: 999 mls/hr Documented By: GER Ioversol (Optiray 320 100ml) 94 ml IV ONCE ONE Stop: 03/19/24 01:11 Last Admin: 03/19/24 01:10 Dose: 94 ml Documented By: MATTHEW Ondansetron HCl (Ondansetron Inj 2 Mg/Ml 2 Ml Vial) 4 mg IV NOW STA Stop: 03/18/24 22:48 Last Admin: 03/18/24 23:17 Dose: 4 mg Documented By: GER Medical Decision Making Medical Records Attestation: I reviewed the patient's medical records. Home Medications Current Medication List: was personally reviewed by wy Laboratory Data Attestation: I reviewed the patient's lab results. 03/18/24 23:25 03/18/24 22:23 Lab Results 03/18/24 03/18/24 03/18/24 Range/Units 22:23 23:03 23:20 WBC Cancelled RBC Cancelled Hgb Cancelled Hct Cancelled MCV Cancelled MCH Cancelled MCHC Cancelled RDW Std Deviation Cancelled RDW Coeff of Jayleen Cancelled Plt Count Cancelled MPV Cancelled Immature Gran % (Auto) Cancelled Neut % (Auto) Cancelled Lymph % (Auto) Cancelled [place] % (Auto) Cancelled Eos % (Auto) Cancelled Baso % (Auto) Cancelled Neut # (Auto) Cancelled Lymph # (Auto) Cancelled [place] # (Auto) Cancelled Eos # (Auto) Cancelled Baso # (Auto) Cancelled Immature Gran # (Auto) Cancelled Absolute Nucleated RBC Cancelled Nucleated RBC % (auto) Cancelled Neutrophils % (Manual) Cancelled Band Neutrophils % Cancelled Lymphocytes % (Manual) Cancelled Prolymphocyte % Cancelled Reactive Lymphs % (Man) Cancelled Monocytes % (Manual) Cancelled Eosinophils % (Manual) Cancelled Basophils % (Manual) Cancelled Metamyelocytes % (Man) Cancelled Myelocytes % (Man) Cancelled Promyelocytes % (Man) Cancelled Blast Cells % (Manual) Cancelled Plasma Cell % (Manual) Cancelled Other Cells % Cancelled Nucleated RBC % Cancelled Neutrophils # (Manual) Cancelled Band Neutrophils # Cancelled Total Absolute Neuts Cancelled Lymphocytes # (Manual) Cancelled Prolymphocyte # Cancelled Reactive Lymphs # Cancelled Total Abs Lymphocytes Cancelled Monocytes # (Manual) Cancelled Eosinophils # (Manual) Cancelled Basophils # (Manual) Cancelled Metamyelocytes # (Man) Cancelled Myelocytes # (Manual) Cancelled Promyelocytes # (Man) Cancelled Blast Cells # (Man) Cancelled Plasma Cell # (Manual) Cancelled Other Cells # Cancelled Nucleated RBCs # (Man) Cancelled Hypersegmented Neuts Cancelled Hyposegmented Neuts Cancelled Hypogranular Neuts Cancelled Large Granular Lymphs Cancelled # Lrg Granular Lymphs Cancelled Hairy Cells Cancelled Smudge Cells Cancelled Toxic Granulation Cancelled Toxic Vacuolation Cancelled Dohle Bodies Cancelled Fareed Rods Cancelled Platelet Estimate Cancelled Hypogranular Platelets Cancelled Giant Platelets Cancelled Platelet Satelliting Cancelled RBC Morphology Cancelled Polychromasia Cancelled Hypochromasia Cancelled Poikilocytosis Cancelled Basophilic Stippling Cancelled Anisocytosis Cancelled Microcytosis Cancelled Macrocytosis Cancelled Spherocytes Cancelled Pappenheimer Bodies Cancelled Sickle Cells Cancelled Target Cells Cancelled Tear Drop Cells Cancelled Ovalocytes Cancelled Stomatocytes Cancelled [place] Bodies Cancelled Echinocytes Cancelled Acanthocytes (Spur) Cancelled Rouleaux Cancelled RBC Agglutinates Cancelled Schistocytes Cancelled [place] Cell Cancelled Sodium 132 L D Cancelled (136-145) mmol/L Potassium 3.9 Cancelled (3.5-5.1) mmol/L Chloride 97 L Cancelled (98-107) mmol/L Carbon Dioxide 24 Cancelled (21-32) mmol/L Anion Gap 11 Cancelled (3-11) BUN 11 Cancelled (6-23) mg/dl Creatinine 0.62 Cancelled (0.6-1.2) mg/dl Est Cr Clr Drug Dosing 75.4 Cancelled ml/min Est GFR ( Amer) 112.8 Cancelled ml/min Est GFR (Non-Af Amer) 97.3 Cancelled ml/min BUN/Creatinine Ratio 17.7 Cancelled (10-20) Glucose 109 H Cancelled (70-99(Fasting)) mg/dl POC Glucose 109 H (70-99) mg/dl Lactate 2.2 H* (0.4-2.0) mmol/L Calcium 9.0 Cancelled (8.6-10.3) mg/dl Magnesium 1.7 Cancelled (1.7-2.4) mg/dl Total Bilirubin 0.5 Cancelled (0.2-1.0) mg/dl Direct Bilirubin TNP Cancelled AST 31 Cancelled (13-39) U/L ALT 18 Cancelled (7-52) U/L Alkaline Phosphatase 97 Cancelled (34-104) U/L Troponin I High Sens 61.3 H* Cancelled (0-14) pg/ml Total Protein 6.9 Cancelled (6.0-8.3) gm/dl Albumin 4.0 Cancelled (3.4-5.0) gm/dl Globulin 2.9 (2.5-4.0) gm/dl Albumin/Globulin Ratio 1.4 (0.9-2) Procalcitonin Cancelled Urine Color Urine Appearance (Clear) Urine pH (4.5-7.5) Ur Specific [place] (1.000-1.030) Urine Protein (Negative) Urine Glucose (UA) (Negative) Urine Ketones (Negative) Urine Blood (Negative) Urine Nitrite (Negative) Urine Bilirubin (Negative) Urine Urobilinogen (Negative) Ur Leukocyte Esterase (Negative) Urine WBC (Auto) (0-5) /hpf Urine RBC (Auto) (0-2) /hpf U Hyaline Cast (Auto) (0-2) /lpf U Epithel Cells (Auto) (0-2) /hpf Urine Bacteria (Auto) (None Seen) Blood Parasites ID Cancelled 03/18/24 03/18/24 03/19/24 Range/Units 23:25 23:53 00:40 WBC 2.58 L RBC 3.46 L Hgb 10.7 L Hct 30.9 L MCV 89.3 MCH 30.9 MCHC 34.6 RDW Std Deviation 40.7 RDW Coeff of Jayleen 12.4 Plt Count 131 MPV 9.7 Immature Gran % (Auto) Neut % (Auto) Lymph % (Auto) [place] % (Auto) Eos % (Auto) Baso % (Auto) Neut # (Auto) Lymph # (Auto) [place] # (Auto) Eos # (Auto) Baso # (Auto) Immature Gran # (Auto) Absolute Nucleated RBC Nucleated RBC % (auto) Neutrophils % (Manual) 62 Band Neutrophils % Lymphocytes % (Manual) 27 Prolymphocyte % Reactive Lymphs % (Man) Monocytes % (Manual) 6 Eosinophils % (Manual) 4 Basophils % (Manual) 1 Metamyelocytes % (Man) Myelocytes % (Man) Promyelocytes % (Man) Blast Cells % (Manual) Plasma Cell % (Manual) Other Cells % Nucleated RBC % Neutrophils # (Manual) 1.60 Band Neutrophils # Total Absolute Neuts 1.60 Lymphocytes # (Manual) 0.70 L Prolymphocyte # Reactive Lymphs # Total Abs Lymphocytes 0.70 L Monocytes # (Manual) 0.15 Eosinophils # (Manual) 0.10 Basophils # (Manual) 0.03 Metamyelocytes # (Man) Myelocytes # (Manual) Promyelocytes # (Man) Blast Cells # (Man) Plasma Cell # (Manual) Other Cells # Nucleated RBCs # (Man) Hypersegmented Neuts Hyposegmented Neuts Hypogranular Neuts Large Granular Lymphs # Lrg Granular Lymphs Hairy Cells Smudge Cells Toxic Granulation Toxic Vacuolation Dohle Bodies 1+ Fareed Rods Platelet Estimate Hypogranular Platelets Giant Platelets Platelet Satelliting RBC Morphology Polychromasia Hypochromasia Poikilocytosis Basophilic Stippling Anisocytosis Microcytosis Macrocytosis Spherocytes Pappenheimer Bodies Sickle Cells Target Cells Tear Drop Cells Ovalocytes Stomatocytes [place] Bodies Echinocytes Acanthocytes (Spur) Rouleaux RBC Agglutinates Schistocytes [place] Cell Sodium (136-145) mmol/L Potassium (3.5-5.1) mmol/L Chloride (98-107) mmol/L Carbon Dioxide (21-32) mmol/L Anion Gap (3-11) BUN (6-23) mg/dl Creatinine (0.6-1.2) mg/dl Est Cr Clr Drug Dosing ml/min Est GFR ( Amer) ml/min Est GFR (Non-Af Amer) ml/min BUN/Creatinine Ratio (10-20) Glucose (70-99(Fasting)) mg/dl POC Glucose (70-99) mg/dl Lactate (0.4-2.0) mmol/L Calcium (8.6-10.3) mg/dl Magnesium (1.7-2.4) mg/dl Total Bilirubin (0.2-1.0) mg/dl Direct Bilirubin AST (13-39) U/L ALT (7-52) U/L Alkaline Phosphatase (34-104) U/L Troponin I High Sens (0-14) pg/ml Total Protein (6.0-8.3) gm/dl Albumin (3.4-5.0) gm/dl Globulin (2.5-4.0) gm/dl Albumin/Globulin Ratio (0.9-2) Procalcitonin 0.15 Urine Color Yellow Urine Appearance Clear (Clear) Urine pH 6.0 (4.5-7.5) Ur Specific [place] 1.007 (1.000-1.030) Urine Protein Negative (Negative) Urine Glucose (UA) Negative (Negative) Urine Ketones Trace H (Negative) Urine Blood Negative (Negative) Urine Nitrite Negative (Negative) Urine Bilirubin Negative (Negative) Urine Urobilinogen Negative (Negative) Ur Leukocyte Esterase Trace H (Negative) Urine WBC (Auto) 0-5 (0-5) /hpf Urine RBC (Auto) 0-2 (0-2) /hpf U Hyaline Cast (Auto) 0-2 (0-2) /lpf U Epithel Cells (Auto) 0-2 (0-2) /hpf Urine Bacteria (Auto) None Seen (None Seen) Blood Parasites ID 03/19/24 Range/Units 01:37 WBC RBC Hgb Hct MCV MCH MCHC RDW Std Deviation RDW Coeff of Jayleen Plt Count MPV Immature Gran % (Auto) Neut % (Auto) Lymph % (Auto) [place] % (Auto) Eos % (Auto) Baso % (Auto) Neut # (Auto) Lymph # (Auto) [place] # (Auto) Eos # (Auto) Baso # (Auto) Immature Gran # (Auto) Absolute Nucleated RBC Nucleated RBC % (auto) Neutrophils % (Manual) Band Neutrophils % Lymphocytes % (Manual) Prolymphocyte % Reactive Lymphs % (Man) Monocytes % (Manual) Eosinophils % (Manual) Basophils % (Manual) Metamyelocytes % (Man) Myelocytes % (Man) Promyelocytes % (Man) Blast Cells % (Manual) Plasma Cell % (Manual) Other Cells % Nucleated RBC % Neutrophils # (Manual) Band Neutrophils # Total Absolute Neuts Lymphocytes # (Manual) Prolymphocyte # Reactive Lymphs # Total Abs Lymphocytes Monocytes # (Manual) Eosinophils # (Manual) Basophils # (Manual) Metamyelocytes # (Man) Myelocytes # (Manual) Promyelocytes # (Man) Blast Cells # (Man) Plasma Cell # (Manual) Other Cells # Nucleated RBCs # (Man) Hypersegmented Neuts Hyposegmented Neuts Hypogranular Neuts Large Granular Lymphs # Lrg Granular Lymphs Hairy Cells Smudge Cells Toxic Granulation Toxic Vacuolation Dohle Bodies Fareed Rods Platelet Estimate Hypogranular Platelets Giant Platelets Platelet Satelliting RBC Morphology Polychromasia Hypochromasia Poikilocytosis Basophilic Stippling Anisocytosis Microcytosis Macrocytosis Spherocytes Pappenheimer Bodies Sickle Cells Target Cells Tear Drop Cells Ovalocytes Stomatocytes [place] Bodies Echinocytes Acanthocytes (Spur) Rouleaux RBC Agglutinates Schistocytes [place] Cell Sodium (136-145) mmol/L Potassium (3.5-5.1) mmol/L Chloride (98-107) mmol/L Carbon Dioxide (21-32) mmol/L Anion Gap (3-11) BUN (6-23) mg/dl Creatinine (0.6-1.2) mg/dl Est Cr Clr Drug Dosing ml/min Est GFR ( Amer) ml/min Est GFR (Non-Af Amer) ml/min BUN/Creatinine Ratio (10-20) Glucose (70-99(Fasting)) mg/dl POC Glucose (70-99) mg/dl Lactate 1.3 (0.4-2.0) mmol/L Calcium (8.6-10.3) mg/dl Magnesium (1.7-2.4) mg/dl Total Bilirubin (0.2-1.0) mg/dl Direct Bilirubin AST (13-39) U/L ALT (7-52) U/L Alkaline Phosphatase (34-104) U/L Troponin I High Sens (0-14) pg/ml Total Protein (6.0-8.3) gm/dl Albumin (3.4-5.0) gm/dl Globulin (2.5-4.0) gm/dl Albumin/Globulin Ratio (0.9-2) Procalcitonin Urine Color Urine Appearance (Clear) Urine pH (4.5-7.5) Ur Specific [place] (1.000-1.030) Urine Protein (Negative) Urine Glucose (UA) (Negative) Urine Ketones (Negative) Urine Blood (Negative) Urine Nitrite (Negative) Urine Bilirubin (Negative) Urine Urobilinogen (Negative) Ur Leukocyte Esterase (Negative) Urine WBC (Auto) (0-5) /hpf Urine RBC (Auto) (0-2) /hpf U Hyaline Cast (Auto) (0-2) /lpf U Epithel Cells (Auto) (0-2) /hpf Urine Bacteria (Auto) (None Seen) Blood Parasites ID Imaging Data Attestation: I personally reviewed and interpreted this imaging study as follows: Radiologist's Impression: Abdomen/Pelvis CT 03/18/24 22:47 Exam(s): CT ABDOMEN + PELVIS With Contrast IV Amt: 94 cc's optiray 320 EXAM: CT Abdomen and Pelvis With Intravenous Contrast CLINICAL HISTORY: Reason for exam: sepsis, uti, ? kidney infx. TECHNIQUE: Axial computed tomography images of the abdomen and pelvis with intravenous contrast. CTDI is 12.14 mGy and DLP is 539.11 mGy-cm. Automated exposure control was utilized for the study. A dose lowering technique was utilized adhering to the principles of ALARA. CONTRAST: Patient received 94 cc's optiray 320 of IV contrast COMPARISON: No relevant prior studies available. FINDINGS: Lung bases: Unremarkable. No mass. No consolidation. ABDOMEN: Liver: Unremarkable. No mass. Gallbladder and bile ducts: Unremarkable. No calcified stones. No ductal dilation. Pancreas: Unremarkable. No mass. No ductal dilation. Spleen: Unremarkable. No splenomegaly. Adrenals: Unremarkable. No mass. Kidneys and ureters: Unremarkable. No solid mass. No hydronephrosis. Stomach and bowel: Diverticulosis without evidence of diverticulitis. No obstruction. PELVIS: Appendix: No findings to suggest acute appendicitis. Bladder: Unremarkable. No mass. Reproductive: Unremarkable as visualized. ABDOMEN and PELVIS: Intraperitoneal space: Unremarkable. No free air. No significant fluid collection. Bones/joints: L5 vertebral body compression fracture resulting in 10% vertebral body height loss this is likely chronic in nature. No dislocation. Soft tissues: Unremarkable. Vasculature: Unremarkable. No abdominal aortic aneurysm. Lymph nodes: Unremarkable. No enlarged lymph nodes. IMPRESSION: No acute findings in the abdomen or pelvis. Electronically signed by: Harpreet Huber MD 03/19/24 02:21 AM MDM Narrative Prior records/ancillary studies reviewed and summarized above. Nursing notes reviewed. Additional history obtained from family. The patient's history was concerning for nausea vomiting and upset stomach. Differential diagnosis: Etiologies such as metabolic, infection, hypo/hyperglycemia, electrolyte abnormalities, cardiac sources, intracerebral event, toxicologic, neurologic, as well as others were entertained. Physical examination: As above. ER treatment provided: IV Lock An order was placed for continuous cardiac monitoring. The monitor shows a rate of 60-100 with a sinus rhythm per my interpretation. IV fluids, Zofran, Pepcid, Tylenol and Rocephin ordered On reassessment the patient felt better. Diagnostics interpretation by me: ECG: Ordered for weakness EKG: Normal sinus, normal intervals, no acute ST-T wave changes. Impression normal sinus rhythm independent interpreted by myself I think arrhythmia is unlikely. EKG shows normal sinus rhythm with no interval abnormalities such as QT prolongation or WPW. There are no findings to suggest Brugada syndrome. Cardiac monitoring in the emergency department reveals no tachycardic or bradycardic dysrhythmia. Hypertrophic cardiomyopathy was considered but there are no clear historical elements pointing toward this. EKG is not suggestive. The QRS voltage is not extremely large and there are no suggestive Q waves. The labs Independently Interpreted by myself revealed elevated troponin and repeat was ordered. Elevated lactic and repeat was normalized. Negative procalcitonin. No worrisome leukocytosis Name: [place] PERSON Acct: [id number] Status: DIS IN : 1960 Svc Date: 03/14/24 Age: 63 Sex: F Dis Date: 03/17/24 Loc: [address] Rm/Bed: W262-1 Spec: [id number] Collected: 03/14/24 Received: 03/14/[address]: Connie Brown PA-C Source: Urine,Clean Catch OV Order: Ordered: Urine Culture Procedure Result Verified Site Urine Culture Final 03/16/24-1056 Organism 1 Escherichia coli [place] Count >100,000 CFU/ml Sens Sensitivities to Follow E coli RX M.I.C. --- --------- Amox/Clav S <=8/4 Ampicillin R >16 Amp/Sul R >16/8 Cefazolin S 4 Cefazolin I Cefepime S <=2 Ceftriaxone S <=1 Ciprofloxacin R >2 Ertapenem S <=0.5 Gentamicin S <=4 Levofloxacin R >4 Meropenem S <=1 Nitrofurantoin S <=32 Tobramycin S <=4 Trimeth/Sulfa S <=2/38 Pip/Tazo S <=16 Escherichia coli: Negative/Urine Combo 90 Complicated UTI Interpretations S = SENSITIVE I = INTERMEDIATE R = RESISTANT Imaging studies: Chest x-ray with no acute consolidation, pneumothorax or free air per my independent interpretation CT as above Consultation: A consultation was placed with the hospitalist. The case was discussed and diagnostics were reviewed. The patient was evaluated in the ER for further treatment. Exam and history seem consistent with UTI with recent sepsis with nausea and vomiting abdominal pain and a type II FL. Patient was given Rocephin. Prior urine culture was reviewed. EKG with sinus tach. No signs of ischemia. First troponin was elevated. Repeat was ordered. First lactic was elevated and repeat was normalized. Patient is agreeable treatment plan of admission. Medicine was consulted and the case was discussed. Patient will be admitted. By the evaluation outlined above emergent etiologies such as electrolyte abnormalities, intracerebral event, toxologic, neurologic, abnormalities blood glucose, metabolic, as well as others were deemed relatively unlikely. The pt informed about the findings as listed above. All questions were answered and pleased with the treatment. The chart was completed utilizing [employer] voice recognition software. Grammatical errors, random word insertions, pronoun errors, and incomplete sentences are an occassional consequence of this system due to software limitations, ambient noise, and hardware issues. Any formal questions or concerns about the content, text, or information contained within the body of this dictation should be directly addressed to the physician media center assistant for clarification. Impression & Plan Acute UTI, Nausea & vomiting, Abdominal pain, acute, Type 2 FL (myocardial infarction) Discharge Plan Visit Data Chief Complaint: Hyperglycemia Stated Complaint: PORT REMOVED YSTRDAY, UTI, HYPERGLYCEMIA, VOMITING ED Provider: Reggie Becerra ED Midlevel Provider: Lissy Ross Discharge Problem: Acute UTI, Nausea & vomiting, Abdominal pain, acute, Type 2 FL (myocardial infarction) Patient Disposition: Admitted As Inpatient Condition: Good Forms Stand Alone Forms: My [employer] Prescriptions Prescriptions: No Action gabapentin 600 mg tablet 1,200 mg PO HS paroxetine HCl 10 mg tablet 10 mg PO QAM mtomjtppmb-tdhfynqydugbj-jdss 50-325-40 mg tablet 1 - 2 tab PO DAILY PRN (Reason: Migraine Headache) Qty: 30 lisinopril 10 mg tablet 10 mg PO HS pantoprazole 40 mg tablet,delayed release (DR/EC) 40 mg PO QAM verapamil 240 mg tablet extended release 240 mg PO QAM Qty: 30 gabapentin 600 mg tablet 600 mg PO QAM metformin 850 mg tablet 850 mg PO QPM Hold Instructions: Resume on 06/13/23. pravastatin 40 mg tablet 40 mg PO HS Medical Marijuana 1 dose PO UD PRN (Reason: Pain) Patient Comments: 3-4x per week Rx Instructions: capsules or tinctures hydrocodone-acetaminophen 5-325 mg tablet 1 tab PO DAILY PRN (Reason: Pain) Rx Instructions: Patient was taking everyday, now is taking PRN multivitamin Tablet 1 tab PO QAM ondansetron HCl 4 mg tablet 4 mg PO BID PRN (Reason: n/v) lidocaine-prilocaine 2.5-2.5 % cream 1 applic topical UD PRN (Reason: Other) sulfamethoxazole-trimethoprim [Bactrim DS] 800-160 mg tablet 2 tab PO BID Qty: 44 0RF Referrals Referrals: Elena Berry DO [Primary Care Provider] -
[2024-03-18] MEDS: cefTRIAXone SODIUM 2,000 MG/50 ML BAG IV STA (23:56)
[2024-03-19 00:24] LABS: Hematocrit (blood only) 30.9 % (37.0-47.0); Hemoglobin 10.7 g/dl (12.0-16.0); Mean Corpuscular Hemoglobin 30.9 pg (25.0-34.0); Mean Corpuscular Hgb Conc 34.6 g/dL (32.0-36.0); Mean Corpuscular Volume 89.3 fL (80.0-100.0); Mean Platelet Volume 9.7 fL (9.4-12.4); Platelet Count 131 K/uL (130-400); RDW Coefficient of Variation 12.4 % (11.5-14.5); RDW Standard Deviation 40.7 fL (36.4-46.3); Red Blood Count 3.46 M/uL (4.20-5.40); White Blood Count 2.58 K/ul (4.8-10.8)
[2024-03-19 01:07] LABS: Appearance Urine Clear (Clear); Bacteria Urine Automated None Seen (None Seen); Bilirubin Urine Negative (Negative); Blood Urine Negative (Negative); Cast Urine Automated 0-2 /lpf (0-2); Color Urine Yellow; Epithelial Cell Urine Auto 0-2 /hpf (0-2); Glucose Urine UA Negative (Negative); Ketones Urine Trace (Negative); Leukocyte Esterase Urine Trace (Negative); Nitrite Urine Negative (Negative); Protein Urine Negative (Negative); RBC Urine Automated 0-2 /hpf (0-2); Specific Gravity Urine 1.007 (1.000-1.030); Urobilinogen Urine Negative (Negative); WBC Urine Automated 0-5 /hpf (0-5)
[2024-03-19] MEDS: OPTIRAY 320 100ml IV ONE (01:10)
[2024-03-19 01:20] LABS: Basophils # (manual) 0.03 K/uL (0-0.2); Basophils % (manual) 1 %; Dohle Bodies 1+; Eosinophils % (manual) 4 %; Lymphocytes % (manual) 27 %; Monocytes # (manual) 0.15 K/uL (0.11-0.59); Monocytes % (manual) 6 %; Neutrophils % (manual) 62 %
[2024-03-19 01:43] LABS: Magnesium 1.7 mg/dl (1.7-2.4); Troponin I High Sensitivity 61.3 pg/ml (0-14)
[2024-03-19] MEDS: SODIUM CHLORIDE 0.9% 500 ML IV ONE (02:13)
--- NOTE | 2024-03-19 02:22 | CT Scan Report ---
Exam(s): CT ABDOMEN + PELVIS With Contrast IV Amt: 94 cc's optiray 320 EXAM: CT Abdomen and Pelvis With Intravenous Contrast CLINICAL HISTORY: Reason for exam: sepsis, uti, ? kidney infx. TECHNIQUE: Axial computed tomography images of the abdomen and pelvis with intravenous contrast. CTDI is 12.14 mGy and DLP is 539.11 mGy-cm. Automated exposure control was utilized for the study. A dose lowering technique was utilized adhering to the principles of ALARA. CONTRAST: Patient received 94 cc's optiray 320 of IV contrast COMPARISON: No relevant prior studies available. FINDINGS: Lung bases: Unremarkable. No mass. No consolidation. ABDOMEN: Liver: Unremarkable. No mass. Gallbladder and bile ducts: Unremarkable. No calcified stones. No ductal dilation. Pancreas: Unremarkable. No mass. No ductal dilation. Spleen: Unremarkable. No splenomegaly. Adrenals: Unremarkable. No mass. Kidneys and ureters: Unremarkable. No solid mass. No hydronephrosis. Stomach and bowel: Diverticulosis without evidence of diverticulitis. No obstruction. PELVIS: Appendix: No findings to suggest acute appendicitis. Bladder: Unremarkable. No mass. Reproductive: Unremarkable as visualized. ABDOMEN and PELVIS: Intraperitoneal space: Unremarkable. No free air. No significant fluid collection. Bones/joints: L5 vertebral body compression fracture resulting in 10% vertebral body height loss this is likely chronic in nature. No dislocation. Soft tissues: Unremarkable. Vasculature: Unremarkable. No abdominal aortic aneurysm. Lymph nodes: Unremarkable. No enlarged lymph nodes. IMPRESSION: No acute findings in the abdomen or pelvis. Electronically signed by: Harpreet Huber MD 03/19/24 02:21 AM
--- NOTE | 2024-03-19 02:54 | History & Physical Report ---
"Date of Service March 19, 2024 Assessment & Plan (1) Nausea & vomiting: (2) E coli bacteremia: (3) Type 2 NH (myocardial infarction): (4) Moderate obstructive sleep apnea: (5) Irritable bowel syndrome: (6) Fibromyalgia: (7) GERD without esophagitis: (8) Gastroparesis: (9) Hyperlipemia: (10) Hypertension: (11) Restless leg syndrome: Plan Fatemeh is a 63F w/ PMH of lymphoma, DM, TGA, REGIS, IBS, fibromyalgia, GERD, gastroparesis, HLD, HTN, and RLS who presented for nausea and emesis following her morning medications which did not resolve throughout the day. Recently admitted 03/14-03/17 for gram negative, E. coli bacteremia and was discharged on Bactrim. Nausea/Emesis | Recent Gram Negative Bacteremia (E. coli) - Patient admitted 03/14-03/17 for E. coli bacteremia Patient hemodynamically stable and afebrile w/o leukocytosis Patient remains pancytopenic in the setting of chemotherapy - Discharged on 03/17 with 2 Bactrim DS BID Patient experiencing significant N/V following taking PO antibiotics - Discontinue Bactrim, start Augmentin 875 mg PO BID (E. coli noted to be sensitive) - Continue IVF, LR @ 80 ml/hr - Nausea management w/ Zofran PRN & Protonix IV daily Hyponatremia - Likely acute in the setting of nausea/emesis - Follow after fluid resuscitation Elevated Troponin (Type 2) - Asymptomatic - EKG unremarkable - Trend to peak Chronic Conditions: GERD: continue PPI Fibromyalgia: continue Gabapentin and paroxetine HTN: continue antihypertensives DM: Continue Metformin Code: Full Diet: DM2 IVF: LR @ 80 Dispo: Med/surg History of Present Illness Primary Care Provider: Elena Berry DO Fatemeh is a 63F w/ PMH of lymphoma, DM, TGA, REGIS, IBS, fibromyalgia, GERD, gastroparesis, HLD, HTN, and RLS who presented for nausea and emesis following her morning medications which did not resolve throughout the day. Recently admitted 03/14-03/17 for gram negative, E. coli bacteremia and was discharged on Bactrim. Patient notes that she had fasted most of the day 03/17 for her port removal procedure and was subsequently discharged to home. The morning of 6/28 she began feeling significantly nauseated after taking her morning antibiotics. At this time, she checked her BSG and it was elevated to 198 (which is twice her normal level). She drank some water and her BSG came down, but she also took a dose of Metformin because she forgot to take the medication the night prior. Following her medication administration she experienced multiple episodes of watery, non- bloody emesis with mild abdominal cramping. Her symptoms persisted through the day, thus presentation to the ED. Patient denies chest pain, dyspnea, fevers, chills, diarrhea, or constipation. ED Course: Zofran, Famotidine, Tylenol, Ceftriaxone, 1LNSS Allergies Allergy/AdvReac Type Severity Reaction Status Date / Time doxycycline Allergy Intermediate Hives Verified 03/17/24 12:16 niacin Allergy Intermediate EXTREMELY Verified 03/17/24 12:16 BRIGHT RED AND BURNY SKIN gluten AdvReac Mild Gastrointestinal Verified 03/17/24 12:16 Upset Home Medications Medication Instructions Recorded Confirmed Type amwskqxlof-yvyqadeqdwecj-ikdbifqb 1 - 2 tab PO DAILY PRN Migraine 06/13/19 03/19/24 History 50 mg-325 mg-40 mg tablet Headache #30 tabs lisinopril 10 mg tablet 10 mg PO HS 06/13/19 03/19/24 History pantoprazole 40 mg tablet,delayed 40 mg PO QAM 06/13/19 03/19/24 History release verapamil 240 mg tablet,extended 240 mg PO QAM #30 tabs 06/13/19 03/19/24 History release pravastatin 40 mg tablet 40 mg PO HS 09/19/20 03/19/24 History gabapentin 600 mg tablet 1,200 mg PO HS 10/02/20 03/19/24 History gabapentin 600 mg tablet 600 mg PO QAM 10/02/20 03/19/24 History hydrocodone 5 mg-acetaminophen 325 1 tab PO DAILY PRN Pain 01/11/21 03/19/24 History mg tablet multivitamin 1 tab PO QAM 04/23/21 03/19/24 History metformin 850 mg tablet 850 mg PO QPM 08/01/21 03/19/24 History paroxetine HCl 10 mg tablet 10 mg PO QAM 11/18/22 03/19/24 History Medical Marijuana 1 dose PO UD PRN Pain 06/03/23 03/19/24 History lidocaine-prilocaine 2.5 %-2.5 % 1 applic topical UD PRN Other 03/14/24 03/19/24 History topical cream ondansetron HCl 4 mg tablet 4 mg PO BID PRN n/v 03/14/24 03/19/24 History sulfamethoxazole 800 2 tab PO BID #44 tabs 03/17/24 03/19/24 Rx mg-trimethoprim 160 mg tablet (Bactrim DS) Past Med/Surg History Problem List (Updated 03/19/24 @ 05:15 by Zac Arana) Type 2 NH (myocardial infarction) (Acute) Abdominal pain, acute (Acute) Nausea & vomiting (Acute) Acute UTI (Acute) Low grade fever pt stated she has been having a low grade temperature/fever since december 2022, on a daily basis since the discovery of the large lymph node in her neck. Hydronephrosis E coli bacteremia Sepsis Nausea (Acute) Pyelonephritis (Acute) Diabetes (Acute) NIDDM EBV (-) lymphoma of intra-abdominal site Preop testing TGA (transient global amnesia) Arthritis Lymphadenopathy Nipple problem Lower back pain (Acute) Central stenosis of spinal canal (Acute) Compression fracture of L4 vertebra (Acute) Weight loss Early satiety Encounter for pre-operative examination Amnesia Lymphadenopathy Moderate obstructive sleep apnea Chronic neck pain (Acute) Irritable bowel syndrome (Acute) Morbid obesity (Acute) Vitamin D deficiency (Acute) Nocturnal hypoxemia Hx of cancer of uterus MAGO positive has not had repeated since 12/2022 Coccydynia Spinal stenosis Fibromyalgia (Acute) GERD without esophagitis (Acute) Gastroparesis (Acute) Hyperlipemia (Acute) Hypertension (Acute) Restless leg syndrome (Acute) Medical History Migraine headache hx B-cell lymphoma Enlarged lymph node in neck has had MRI screening History of fractured vertebra L4, 01/22/2022, no sx required Depression Back problem History of bronchitis none since 2019 or 2020 History of anemia iron infusion and B12 injection set for 07/29/23 at [facility] Medical marijuana use 3-4x per week Degenerative disc disease Osteoarthritis Osteopenia Fatty liver Diverticulosis hx IBS (irritable bowel syndrome) History of endometrial cancer LASHON-BSO TMJ (dislocation of temporomandibular joint) clicking, no locking Sleep apnea not currently using CPAP>has lost over 100 pounds in last 3 years, has not had a repeated sleep study Surgical History History of removal of Port-a-Cath Port Removal Dr. Medeiros 03/17/2024 Port-A-Cath in place (07/30/23) Insertion Access Port Left Subclavian Vein(Left) - Gerson Oconnell MD, FACS Hx of biopsy (06/11/23) Laparoscopic Biopsy of the Right excisional Iliac Node (Right) - Gerson Oconnell MD, FACS History of lymph node excision (01/22/21) Robotic-assisted laparoscopic right pelvic lymph node dissection, possible right sided groin lymph node dissection Dr. Tyrese Roper[place] [facility] [place] post epidural steroid injection History of anesthesia reaction woke up during foot surgery History of toe surgery x 2 History of uvulopalatopharyngoplasty History of tonsillectomy History of esophagogastroduodenoscopy (EGD) History of colonoscopy History of total abdominal hysterectomy and bilateral salpingo-oophorectomy H/O oral surgery Family History Father Dyslipidemia Hx of CABG Hypertension Myocardial infarction Heart disease Stroke Uncle Colorectal cancer Diabetes Heart disease Hypertension Aunt Osteoporosis Breast cancer Mother Ovarian cancer Uterine cancer Cancer Brother Diabetes Heart disease Hypertension Other No family history of adverse response to anesthesia Social History Smoking Status: Former smoker Tobacco Type: Cigarettes Age Quit Using Tobacco: 47; Second Hand Exposure: No; Do You Dip or Chew Tobacco: No; Hx Alcohol Use: No Hx Substance Use: Yes Last Used Substance: Days (ago) Last Used Substance Other:: capsules and tinctures, 3-4x week Substance Use Type Other:: medical marijuana Preferred Language: Bengali Communication Ability: Effective Visual Impairment: Limited Stringed Instrument Assembler Required: No Beliefs That Will Affect Care: None marital status: Current Living Situation: Alone current occupational status: employed 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 [employer] How many Children do You have: 1 Other Information That Helps Us Care for You: No Feels Safe at Home: Yes Safety Concerns: Feels Safe At This Time Diet: diabetic during the past year weight has: remained stable Assistive Devices: Glasses Physical Exam Physical Exam: Gen: NAD, alert, interactive, chronically ill appearing HEENT: Supple, NCAT, dry mucous membranes Resp:Non-labored, no wheezing/rhonchi/rales, CTAB CV:RRR, normal S1/S2, no M/R/G Abd: Soft, non-distended, no TTP, normoactive bowels, no masses Extr: 2+ dp bilaterally, no edema Skin: No rashes lesions or erythema Results & Data Results & Data Vital Signs (Past 12 Hours) Vital Signs Temp Pulse Pulse Resp BP BP Pulse Ox 03/19/24 02:05 83 17 112/71 98 03/19/24 01:09 83 17 127/66 99 03/18/24 23:37 68 16 143/82 H 100 03/18/24 23:21 71 03/18/24 22:06 36.8 C 77 18 132/74 97 O2 Del Method 03/19/24 02:05 Room Air 03/19/24 01:09 Room Air 03/18/24 23:37 Room Air 03/18/24 23:21 03/18/24 22:06 Room Air Supervising Physician Co-Signing Physician Notes Attending addendum: I have physically seen this patient, have supervised the medical residents activities, and agree with the H&P unless as otherwise noted. Assessment and Plan: Intractable nausea and vomiting- Likely secondary to Bactrim that she was discharged on for E. coli bacteremia stop Bactrim Pantoprazole 40 mg IV daily Zofran 4 mg IV every 6 hours as needed LR at 80 mL/h E. coli bacteremia- Port was removed at last visit Placed on Augmentin 875 mg twice daily Elevated troponin- Troponin 61.3 on admission, follow-up per protocol Likely type II supply demand Hypomagnesemia- Magnesium 1.7 give magnesium sulfate IV and recheck laboratories in a.m. Resident Activity Tracking Resident Involvement: Resident Care Provided Care Provided: Adult [facility] Medicine"
[2024-03-19 03:55] LABS: Bilirubin Direct 0.1 mg/dl (0-0.2)
[2024-03-19 04:03] LABS: Troponin I High Sensitivity 51.5 pg/ml (0-14)
[2024-03-19] MEDS ORDERED: BUTALBITAL/ACETAMIN/CAFFEINE TAB PO PRN (05:16)
[2024-03-19] MEDS ORDERED: LIDOCAINE/PRILOCAINE 2.5% EA CRM EXT PRN (05:16)
[2024-03-19] MEDS ORDERED: ONDANSETRON INJ 2 MG/ML 2 ML VIAL IV PRN (05:16)
[2024-03-19] MEDS: LACTATED RINGER'S 1,000 ML IV SCH (05:41)
--- NOTE | 2024-03-19 08:31 | XRay Report ---
XR chest 1V portable CLINICAL HISTORY: Sepsis. COMPARISON STUDY: Chest radiograph March 14, 2024. FINDINGS: Lung volumes are normal. Lungs are clear. There is no pneumothorax or pleural effusion. Car diac size is normal. Mediastinal contours are normal. There is no evidence for pulmonary edema. IMPRESSION: No acute cardiopulmonary findings. ACT 112: Negative or not required by law. Electronically signed by: Yordan Espino M.D. 03/19/2024 8:29 AM
[2024-03-19] MEDS: HYDROCODONE/ACETAMOPHEN 5/325MG TAB PO PRN (09:11)
[2024-03-19] MEDS: PARoxetine HCL 10 MG TAB PO SCH (09:12)
[2024-03-19] MEDS: VERAPAMIL HCL 240 MG TABCR PO SCH (09:12)
[2024-03-19] MEDS: MULTIVITAMIN TAB PO SCH (09:12)
[2024-03-19] MEDS: GABAPENTIN 600 MG TAB PO SCH ×2 (09:12→20:05)
[2024-03-19] MEDS: PANTOprazole 40 MG in SYRINGE 0 ML IV SCH (12:55)
[2024-03-19] MEDS: AMOXICILLIN/CLAVULANATE 875 MG TAB PO SCH ×2 (13:57→20:05)
[2024-03-19] MEDS: metFORMIN HCL 850 MG TAB PO SCH (17:46)
--- NOTE | 2024-03-19 17:56 | Electrocardiogram Report ---
Test Reason : Blood Pressure : / mmHG Vent. Rate : 060 BPM Atrial Rate : 060 BPM P-R Int : 122 ms QRS Dur : 086 ms QT Int : 474 ms P-R-T Axes : 057 007 043 degrees QTc Int : 474 ms Normal sinus rhythm Normal ECG When compared with ECG of 01-JUN-2023 15:42, No significant change was found Confirmed by Srinivas Santoyo ([id number]) on 03/19/2024 5:56:35 PM Referred By: REFERRED SELF Confirmed By:Srinivas Santoyo
--- NOTE | 2024-03-19 19:06 | Billing Data ---
Date of Service March 19, 2024 Coding Level of Care Code 37367 INT INP/OBS CARE
[2024-03-19] MEDS: lisinopril 10 MG TAB PO SCH (20:05)
[2024-03-19] MEDS: PRAVASTATIN SOD 40 MG TAB PO SCH (20:05)
--- NOTE | 2024-03-20 08:44 | Discharge Summary ---
"Date of Service March 20, 2024 Admission HPI Per Admitting Provider Fatemeh is a 63F w/ PMH of lymphoma, DM, TGA, REGIS, IBS, fibromyalgia, GERD, gastroparesis, HLD, HTN, and RLS who presented for nausea and emesis following her morning medications which did not resolve throughout the day. Recently admitted 03/14-03/17 for gram negative, E. coli bacteremia and was discharged on Bactrim. Patient notes that she had fasted most of the day 03/17 for her port removal procedure and was subsequently discharged to home. The morning of 03/18 she began feeling significantly nauseated after taking her morning antibiotics. At this time, she checked her BSG and it was elevated to 198 (which is twice her normal level). She drank some water and her BSG came down, but she also took a dose of Metformin because she forgot to take the medication the night prior. Following her medication administration she experienced multiple episodes of watery, non- bloody emesis with mild abdominal cramping. Her symptoms persisted through the day, thus presentation to the ED. Patient denies chest pain, dyspnea, fevers, chills, diarrhea, or constipation. ED Course: Zofran, Famotidine, Tylenol, Ceftriaxone, 1LNSS Principal Diagnosis gram negative bacteremia Discharge Exam Patient lying in bed. NAD HEart: regular rate chest: not using accessory muscles to breath MSK: moving all extremitites. Discharge Data Allergies Allergy/AdvReac Type Severity Reaction Status Date / Time doxycycline Allergy Intermediate Hives Verified 03/17/24 12:16 niacin Allergy Intermediate EXTREMELY Verified 03/17/24 12:16 BRIGHT RED AND BURNY SKIN gluten AdvReac Mild Gastrointestinal Verified 03/17/24 12:16 Upset Consultations 03/19/24 02:27 ED Decision to Admit Stat Ordered Studies 03/18/24 22:47 CT Abd and Pelvis [CT abd pelvis IV con only] Stat Hospital Course (1) Nausea & vomiting: (2) E coli bacteremia: (3) Type 2 CA (myocardial infarction): (4) Moderate obstructive sleep apnea: (5) Irritable bowel syndrome: (6) Fibromyalgia: (7) GERD without esophagitis: (8) Gastroparesis: (9) Hyperlipemia: (10) Hypertension: (11) Restless leg syndrome: Plan Fatemeh is a 63F w/ PMH of lymphoma, DM, TGA, REGIS, IBS, fibromyalgia, GERD, gastroparesis, HLD, HTN, and RLS who presented for nausea and emesis following her morning medications which did not resolve throughout the day. Recently admitted 03/14-03/17 for gram negative, E. coli bacteremia and was discharged on Bactrim. Nausea/Emesis | Recent Gram Negative Bacteremia (E. coli) - Patient admitted 03/14-03/17 for E. coli bacteremia Patient hemodynamically stable and afebrile w/o leukocytosis Patient remains pancytopenic in the setting of chemotherapy - Discharged on 03/17 with 2 Bactrim DS BID Patient experiencing significant N/V following taking PO antibiotics -Patient did not tolerate 2 tablet of double strength bactrim, transitioned to augmentin TID dosing. D?W ID agreeable. Patient tolerated dose overnight and this morning. Will take it at 4:00, 12:00 and 8:00 pm Hyponatremia - Likely acute in the setting of nausea/emesis Elevated Troponin (Type 2) - Asymptomatic - EKG unremarkable - Trend to peak Chronic Conditions: GERD: continue PPI Fibromyalgia: continue Gabapentin and paroxetine HTN: continue antihypertensives DM: Continue Metformin Total Time Total Time Spent Total Time Spent (In Minutes): 32 Discharge Plan Discharge Items Patient Disposition: Home - Self-Care Reason For Visit: EMESIS, ABD PAIN Discharge Diagnosis: nausea Condition on Discharge: Good Activity: Resume your previous activity Non-emergency contact: Primary Care Provider Call non-emergency contact if: you have any medication questions Follow-up/Referrals: Elena Berry DO [Primary Care Provider] - Diet: Carb Consistent or DM2 Addtl Attending Provider Instructions: You were found to have a urinary tract infection with bacteria in your blood stream. Given recurrent urinary tract infection, and bacteria in your blood stream. We recommended to remove your a-port as this could be contaminated. You were then discharged on bactrim, sadluy though you did not tolerate this medication. We will transition you to augmentin. Hope you are able to enjoy yoursister this morning. You will be taking this antibiotic three times a day. Try to take them on a full stomach 8 hours apart. First dose today after lunch. Last dose 03/28 Pending Studies at Discharge: No Stand-Alone Forms: My [employer], Smoking Cessation Medications and DC Order Prescriptions: New amoxicillin-pot clavulanate 875-125 mg Tablet 1 tab PO Q8H Qty: 26 0RF Rx Instructions: first dose after lunch Continued gabapentin 600 mg tablet 1,200 mg PO HS paroxetine HCl 10 mg tablet 10 mg PO QAM vtzyjkneql-vjtrlowwulhxq-ynwk 50-325-40 mg tablet 1 - 2 tab PO DAILY PRN (Reason: Migraine Headache) Qty: 30 lisinopril 10 mg tablet 10 mg PO HS pantoprazole 40 mg tablet,delayed release (DR/EC) 40 mg PO QAM verapamil 240 mg tablet extended release 240 mg PO QAM Qty: 30 gabapentin 600 mg tablet 600 mg PO QAM metformin 850 mg tablet 850 mg PO QPM Hold Instructions: Resume on 06/13/23. pravastatin 40 mg tablet 40 mg PO HS Medical Marijuana 1 dose PO UD PRN (Reason: Pain) Patient Comments: 3-4x per week Rx Instructions: capsules or tinctures hydrocodone-acetaminophen 5-325 mg tablet 1 tab PO DAILY PRN (Reason: Pain) Rx Instructions: Patient was taking everyday, now is taking PRN multivitamin Tablet 1 tab PO QAM ondansetron HCl 4 mg tablet 4 mg PO BID PRN (Reason: n/v) lidocaine-prilocaine 2.5-2.5 % cream 1 applic topical UD PRN (Reason: Other) Discontinued sulfamethoxazole-trimethoprim [Bactrim DS] 800-160 mg tablet 2 tab PO BID Qty: 44 0RF Discharge Orders: Discharge Order (Routine); Ordered 03/20/24 Ordered By: Pernell Montes Admission Data Admit Date/Time: 03/19/24 03:25 Attending Provider: Pernell Montes Admit Provider: Dominique Winters Primary Care Provider: Elena Berry Other Providers: Wil Tamayo Coding Level of Care Code 27633 INP/OBS DISCH >30 MIN Diagnoses Nausea & vomiting R11.2 E coli bacteremia R78.81; B96.20 Type 2 CA (myocardial infarction) I21.A1 Moderate obstructive sleep apnea G47.33 Irritable bowel syndrome K58.9 Fibromyalgia M79.7 GERD without esophagitis K21.9 Gastroparesis K31.84 Hyperlipemia E78.5 Hypertension I10 Restless leg syndrome G25.81"
== END 2024-03-20 11:38 | disposition home or self-care (01) | DRG 391 ==
LOC: ED 21:57 → SUATTDRO 03-19 03:25 → 2N 03-19 03:25
DX: T45.1X5A Adverse effect of antineoplastic and immunosuppressive drugs, initial encounter; Z79.84 Long term (current) use of oral hypoglycemic drugs; G47.33 Obstructive sleep apnea (adult) (pediatric); C83.30 Diffuse large B-cell lymphoma, unspecified site; I21.A1 Myocardial infarction type 2; K58.9 Irritable bowel syndrome, unspecified; B96.20 Unspecified Escherichia coli [E. coli] as the cause of diseases classified elsewhere; K21.9 Gastro-esophageal reflux disease without esophagitis; K31.84 Gastroparesis; Z88.1 Allergy status to other antibiotic agents; E11.43 Type 2 diabetes mellitus with diabetic autonomic (poly)neuropathy; E11.65 Type 2 diabetes mellitus with hyperglycemia; E87.1 Hypo-osmolality and hyponatremia; Z87.891 Personal history of nicotine dependence; D61.810 Antineoplastic chemotherapy induced pancytopenia; G25.81 Restless legs syndrome; Z79.899 Other long term (current) drug therapy; R78.81 Bacteremia; R11.2 Nausea with vomiting, unspecified; E78.5 Hyperlipidemia, unspecified; E83.42 Hypomagnesemia; I10 Essential (primary) hypertension